=== PATIENT | male | born 1935 ===

== ENCOUNTER → 2020-03-22 13:53 | Outpatient (BNVA) | payer MEDICARE, SELFPAY | PROVIDERS: PCP Internal Medicine; Referring Provider Internal Medicine; Visit Provider Internal Medicine | DX: Z76.89 Persons encountering health services in other specified circumstances (principal) ==

== ENCOUNTER → 2020-04-26 13:17 | Outpatient (BNVA) | payer MEDICARE, SELFPAY | PROVIDERS: PCP Internal Medicine; Referring Provider Internal Medicine; Visit Provider Internal Medicine | DX: Z45.018 Encounter for adjustment and management of other part of cardiac pacemaker (principal); I49.5 Sick sinus syndrome | CPT/HCPCS: 93005; 99212 ==

== ENCOUNTER → 2020-06-01 12:50 | Outpatient (REF) | payer MEDICARE, SELFPAY ==
--- NOTE | 2020-06-01 13:01 | CA_ITS ---
Transthoracic Echocardiogram Patient (Last, First, Middle): Carlin Milton J Gender: Male Date of : 1935 Age: 85 Procedure Date: 06/01/2020 Procedure Type: Transthoracic Echocardiogram Location: OP Height: 177.8 cm Weight: 90.72 kg BSA: 2.09 m2 Heart Rate: bpm BP: 126 / 68 mmHg Subeditor: Referring MD: Dominick Guillaume MD Symptoms: Z95.0 - Presence of cardiac pacemaker Study Quality: Fair ECG Rhythm: Sinus with extra beats Conclusions: - The left ventricular systolic function is normal. The visually estimated ejection fraction is between 60-65%. - There is mild calcification of the aortic valve. - There is mild mitral annular calcification. - There is mild tricuspid valve regurgitation. - There is mild dilatation of the ascending aorta measuring 3.90 cm. Findings Left Ventricle Normal left ventricular cavity size. There is mildly increased left ventricular wall thickness. The left ventricular systolic function is normal. The visually estimated ejection fraction is between 60-65%. There is no evidence of regional wall motion abnormalities. E/E prime ratio is between 8 and 15 consistent with indeterminate filling pressures. Evidence suggests grade I (mild) diastolic dysfunction. Right Ventricle Normal right ventricular cavity size and systolic function. There is a pacemaker wire seen in the right ventricle. Atria The left atrium is normal in size. The right atrium is normal in size. Aortic Valve There is a normal trileaflet aortic valve. There is mild calcification of the aortic valve. There is no aortic valve stenosis. There is no aortic valve regurgitation. Mitral Valve There is mild mitral annular calcification. There is trace mitral valve regurgitation. There is no mitral valve stenosis. Pulmonic Valve The pulmonic valve was not well visualized. Tricuspid Valve Normal tricuspid valve structure. There is mild tricuspid valve regurgitation. The pulmonary artery systolic pressure is normal. Great Vessels There is mild dilatation of the ascending aorta measuring 3.90 cm. Venous The inferior vena cava is normal in size and collapses greater than 50% with inspiration. Pericardium/Pleural There is no evidence of pericardial effusion. Prior Study Comparison No prior study available for comparison. Measurements 2D Linear Measurements IVSd: 1.28 0.6-0.9/0.6-1.0 cm LVIDd: 3.69 3.9-5.3/4.2-5.9 cm LVIDd Index: 1.77 2.4-3.2/2.2-3.1 cm/m2 LVIDs: 2.42 2.0-3.6 cm LVPWd: 1.26 0.7-1.1 cm Ao Root: 4.00 2.1-3.5 cm LA Diam: 3.40 2.7-3.8/3.0-4.0 cm LAIDs Index: 1.63 1.5-2.3 cm/m2 LV Mass: 199.22 67-162/88-224 g LV Mass Index: 95.32 43-95/49-115 g/m2 LVOT Diam: 2.30 3.0+(-)1.3 cm 2D Systolic Function EF 4C: 62.50 >55% EF 2C: 60.90 >55% EF BiP: 64.80 >55% Mitral Valve MV Pk E: 0.87 MV PK A: 1.53 MV Decel Time: 194.00 E/A: 0.60 E'Lateral: 6.67 E'Medial: 7.74 E/E' Med: 11.30 E/E' Lat: 13.10 PHT: 57.00 MVA PHT: 3.86 Decel [place]: 4.51 Aortic Valve AoV Pk Sadiq: 1.70 AoV Mn Sadiq: 1.18 AoV VTI: 0.36 AoV Pk Grad: 12.00 Aov Mn Grad: 6.00 JEANETTE Cont.VTI: 3.26 LVOT LVOT Pk Sadiq: 1.22 LVOT Mn Sadiq: 0.87 LVOT VTI: 0.28 LVOT Pk Grad: 6.00 LVOT Mn Grad: 3.00 LVOT Diam: 2.30 LVOT Area: 4.15 Diastolic Function MV Pk E: 0.87 MV Pk A: 1.53 E/A: 0.60 E'Medial: 7.74 E/E' Med: 11.30 E' Laterial: 6.67 E/E' Lat: 13.10 Tricuspid Valve TR Pk Sadiq: 2.51 TR Pk Grad: 25.00 RA Press: 3.00 RVSP: 28.00 Great Vessels Aorta Ao Root-2D: 4.00 2.0-3.7 cm Ao Asc: 3.90 2.1-3.4 cm Pulmonary Valve PV Pk Sadiq: 1.14 Peak PV Grad: 5.00 Updated in Other Vendor System with Status of Final Dominick Guillaume MD electronically signed on 06/01/2020 4:09:33 PM with status of Final
== END ==
LOC: HO.CARD 12:50
PROVIDERS: PCP Hospitalist; Visit Provider Internal Medicine
DX: Z95.0 Presence of cardiac pacemaker (principal)
CPT/HCPCS: 93306

== ENCOUNTER → 2021-04-14 13:18 | Outpatient (BNVA) | payer MEDICARE, SELFPAY | PROVIDERS: PCP Internal Medicine; Visit Provider Internal Medicine | DX: Z45.018 Encounter for adjustment and management of other part of cardiac pacemaker (principal); I49.5 Sick sinus syndrome; E78.5 Hyperlipidemia, unspecified | CPT/HCPCS: 93005; 99212 ==

== ENCOUNTER 2022-12-22 09:47 | Outpatient (REF) | payer MEDICARE, SELFPAY ==
[2022-12-22 10:03] LABS: MANUAL DIFF FLAG NO
[2022-12-22 10:28] LABS: Basophils Absolute Auto 0.1 X10*3/uL (0.0-0.2); Eosinophils Absolute Auto 0.2 X10*3/uL (0.0-0.4); Eosinophils Percent Auto 2.1 % (0-4); Hematocrit 44.5 % (42.0-52.0); Hemoglobin 14.6 g/dl (14.0-18.0); Imm Gran Abs Auto 0.02 X10*3/uL (0.00-0.03); Imm Gran Pct Auto 0.3 % (0.0-0.4); Lymphocytes Absolute Auto 2.5 X10*3/uL (1.2-4.9); Lymphocytes Percent Auto 34.8 % (20-40); Mean Corpuscular HGB Conc 32.8 g/dl (31.0-36.0); Mean Corpuscular Hemoglobin 31.1 pg (27.0-33.0); Mean Corpuscular Volume 94.9 fL (80.0-98.0); Mean Platelet Volume 11.2 fL (9.4-12.4); Monocytes Absolute Auto 0.7 X10*3/uL (0.1-1.2); Monocytes Percent Auto 9.5 % (2-11); Neutrophils Absolute Auto 3.7 x10*3/uL (2.0-8.3); Neutrophils Percent Auto 52.3 % (45-73); Platelet Count 169 X10*3/uL (160-400); Red Blood Count 4.69 X10*6/uL (4.60-5.80); Red Cell Distribution Width 13.9 % (11.0-16.0); White Blood Count 7.1 X10*3/uL (4.8-10.8)
[2022-12-22 11:06] LABS: Alanine Aminotransferase 20 U/L (0-40); Albumin Level 3.9 g/dL (3.5-5.0); Alkaline Phosphatase 96 U/L (39-117); Anion Gap 12 (12-20); Aspartate Amino Transferase 23 U/L (5-37); Bilirubin Total 0.6 mg/dL (0.0-1.0); Blood Urea Nitrogen 20 mg/dL (9-16); Calcium 9.7 mg/dL (8.4-10.2); Carbon Dioxide 24 mmol/L (22-29); Chloride 110 mmol/L (96-108); Cholesterol 221 mg/dL; Estimated Glomerular Filt Rate 43; Glucose Fasting 99 mg/dL (60-99); HDL Cholesterol 35 mg/dL; LDL Cholesterol Calculated 164 mg/dl; Potassium 4.4 mmol/L (3.3-5.1); Sodium 142 mmol/L (135-145); Total Protein 7.9 g/dL (6.5-8.0); Triglycerides 112 mg/dL
[2022-12-22 11:26] LABS: Prostate Specific Antigen 1.09 ng/mL (<0.05-4.0)
== END 2022-12-22 09:48 | disposition home or self-care (01) ==
LOC: HO.LAB 09:47
PROVIDERS: PCP Internal Medicine; Visit Provider Internal Medicine
DX: Z00.00 Encounter for general adult medical examination without abnormal findings (principal); R82.90 Unspecified abnormal findings in urine; Z12.5 Encounter for screening for malignant neoplasm of prostate
CPT/HCPCS: 36415; 80053; 80061; 84153; 85025; 87086

== ENCOUNTER 2023-01-01 12:59 | Outpatient (REF) | payer MEDICARE, SELFPAY ==
[2023-01-01 13:11] LABS: Appearance Urine Clear; Color Urine Yellow; Glucose Urine UA Negative (Negative); Leukocyte Esterase Urine Negative (Negative); Nitrite Urine Negative (Negative); Specific Gravity - Urine 1.015 (1.005-1.025); Urine Blood Negative (Negative); Urine Ketones Negative (Negative); Urine Protein Negative (Neg-Trace)
[2023-01-01 13:16] LABS: Bacteria Urine None Seen (None Seen); Hyaline Casts Urine 0-2 /LPF (0-2); RBC Urine 0-2 /HPF (0-2); Squamous Epithelial Cell Urine 0-2 /HPF (0-2); WBC Urine 0-5 /HPF (0-5)
== END 2023-01-01 13:00 | disposition home or self-care (01) ==
LOC: HO.LNP 12:59
PROVIDERS: Visit Provider Internal Medicine
DX: Z00.00 Encounter for general adult medical examination without abnormal findings (principal)
CPT/HCPCS: 81001

== ENCOUNTER 2023-08-24 12:06 | Outpatient (REF) | payer MEDICARE, SELFPAY ==
--- NOTE | ~2023-08-24 | XR_ITS ---
EXAMINATION: XR FOOT, LEFT CLINICAL INFORMATION: Pain without trauma. COMPARISON: None available. TECHNIQUE: AP, lateral, and oblique views of the left foot. FINDINGS: Bony alignment and mineralization are normal. No fracture, dislocation or left ankle joint effusion is seen. Boehler's angle is normal. There is a small plantar calcaneal spur. A small os trigonum and an os naviculare (accessory ossification centers) are noted. There is degenerative change of the dorsal midfoot. There is no focal soft tissue swelling, gas or foreign body. XR/XR foot LT min 3V IMPRESSION: 1. No fracture, dislocation or left ankle joint effusion is seen. 2. There is a small plantar calcaneal spur.
== END 2023-08-24 12:07 | disposition home or self-care (01) ==
LOC: HO.LAB 12:06
PROVIDERS: Absent Provider Internal Medicine; PCP Internal Medicine; Visit Provider Internal Medicine
DX: M79.672 Pain in left foot (principal)
CPT/HCPCS: 73630

== ENCOUNTER 2023-09-01 11:08 | Outpatient (REF) | payer MEDICARE, SELFPAY ==
--- NOTE | ~2023-09-01 | XR_ITS ---
EXAMINATION: XR KNEE, LEFT CLINICAL INFORMATION: Arthritis of left knee COMPARISON: None available. TECHNIQUE: Two views of the left knee. FINDINGS: Trace joint effusion. Tiny calcific density overlies the posterior aspect of the superior patellar tendon insertion on the lateral view with small anterior spur. Mild narrowing of the medial and lateral compartments with tiny marginal osteophytes. The bones are diffusely demineralized. Scattered soft tissue calcifications are likely vascular XR/XR knee LT 2V IMPRESSION: Mild degenerative changes as detailed above.
== END 2023-09-01 11:09 | disposition home or self-care (01) ==
LOC: HO.HMGCX 11:08
PROVIDERS: PCP Internal Medicine; Visit Provider Internal Medicine
DX: M17.12 Unilateral primary osteoarthritis, left knee (principal)
CPT/HCPCS: 73560

== ENCOUNTER 2023-12-31 10:54 | Outpatient (REF) | payer MEDICARE, SELFPAY ==
[2023-12-31 10:57] LABS: MANUAL DIFF FLAG NO
[2023-12-31 11:07] LABS: Basophils Absolute Auto 0.1 X10*3/uL (0.0-0.2); Basophils Percent Auto 1.3 % (0-2); Eosinophils Absolute Auto 0.1 X10*3/uL (0.0-0.4); Eosinophils Percent Auto 1.8 % (0-4); Hematocrit 42.6 % (42.0-52.0); Hemoglobin 14.1 g/dl (14.0-18.0); Imm Gran Abs Auto 0.02 X10*3/uL (0.00-0.03); Imm Gran Pct Auto 0.3 % (0.0-0.4); Lymphocytes Absolute Auto 2.5 X10*3/uL (1.2-4.9); Mean Corpuscular HGB Conc 33.1 g/dl (31.0-36.0); Mean Corpuscular Hemoglobin 32.1 pg (27.0-33.0); Mean Platelet Volume 11.2 fL (9.4-12.4); Monocytes Absolute Auto 0.6 X10*3/uL (0.1-1.2); Monocytes Percent Auto 8.2 % (2-11); Neutrophils Absolute Auto 3.8 x10*3/uL (2.0-8.3); Neutrophils Percent Auto 53.4 % (45-73); Platelet Count 199 X10*3/uL (160-400); Red Blood Count 4.39 X10*6/uL (4.60-5.80); Red Cell Distribution Width 14.2 % (11.0-16.0); White Blood Count 7.1 X10*3/uL (4.8-10.8)
[2023-12-31 11:28] LABS: Appearance Urine Clear; Color Urine Yellow; Glucose Urine UA Negative (Negative); Leukocyte Esterase Urine Negative (Negative); Nitrite Urine Negative (Negative); Urine Blood Negative (Negative); Urine Ketones Negative (Negative); Urine Protein Negative (Neg-Trace)
[2023-12-31 11:29] LABS: Alanine Aminotransferase 20 U/L (0-40); Albumin Level 3.9 g/dL (3.5-5.0); Alkaline Phosphatase 93 U/L (39-117); Anion Gap 13 (12-20); Aspartate Amino Transferase 24 U/L (5-37); Bilirubin Total 0.6 mg/dL (0.0-1.0); Blood Urea Nitrogen 18 mg/dL (9-16); Calcium 9.4 mg/dL (8.4-10.2); Carbon Dioxide 24 mmol/L (22-29); Chloride 109 mmol/L (96-108); Cholesterol 218 mg/dL (<200); Estimated Glomerular Filt Rate 43; Glucose Fasting 129 mg/dL (60-99); HDL Cholesterol 39 mg/dL (>40); LDL Cholesterol Calculated 157 mg/dL (<100); Potassium 3.9 mmol/L (3.3-5.1); Sodium 142 mmol/L (135-145); Total Protein 7.7 g/dL (6.5-8.0); Triglycerides 112 mg/dL (<150)
[2023-12-31 11:43] LABS: PSA,Total (Free>4and<10) 0.88 ng/mL (0.00-4.00)
[2023-12-31 11:50] LABS: Bacteria Urine None Seen (None Seen); Hyaline Casts Urine 0-2 /LPF (0-2); RBC Urine 0-2 /HPF (0-2); Squamous Epithelial Cell Urine 0-2 /HPF (0-2); WBC Urine 0-5 /HPF (0-5)
== END 2023-12-31 10:55 | disposition home or self-care (01) ==
LOC: HO.LNP 10:54
PROVIDERS: Visit Provider Internal Medicine
DX: Z00.00 Encounter for general adult medical examination without abnormal findings (principal); Z12.5 Encounter for screening for malignant neoplasm of prostate
CPT/HCPCS: 80053; 80061; 81001; 84153; 85025

== ENCOUNTER 2024-02-07 13:17 | Outpatient (REF) | payer MEDICARE, SELFPAY ==
[2024-02-07 13:21] LABS: MANUAL DIFF FLAG NO
[2024-02-07 13:39] LABS: Basophils Absolute Auto 0.1 X10*3/uL (0.0-0.2); Basophils Percent Auto 1.3 % (0-2); Eosinophils Absolute Auto 0.1 X10*3/uL (0.0-0.4); Eosinophils Percent Auto 1.8 % (0-4); Hematocrit 34.6 % (42.0-52.0); Hemoglobin 10.9 g/dl (14.0-18.0); Imm Gran Abs Auto 0.04 X10*3/uL (0.00-0.03); Imm Gran Pct Auto 0.5 % (0.0-0.4); Lymphocytes Absolute Auto 1.5 X10*3/uL (1.2-4.9); Lymphocytes Percent Auto 18.1 % (20-40); Mean Corpuscular HGB Conc 31.5 g/dl (31.0-36.0); Mean Corpuscular Hemoglobin 31.2 pg (27.0-33.0); Mean Corpuscular Volume 99.1 fL (80.0-98.0); Mean Platelet Volume 11.1 fL (9.4-12.4); Monocytes Absolute Auto 0.7 X10*3/uL (0.1-1.2); Monocytes Percent Auto 8.9 % (2-11); Neutrophils Absolute Auto 5.6 x10*3/uL (2.0-8.3); Neutrophils Percent Auto 69.4 % (45-73); Platelet Count 313 X10*3/uL (160-400); Red Blood Count 3.49 X10*6/uL (4.60-5.80); Red Cell Distribution Width 13.7 % (11.0-16.0)
[2024-02-07 14:07] LABS: Alanine Aminotransferase 59 U/L (0-40); Albumin Level 3.7 g/dL (3.5-5.0); Alkaline Phosphatase 93 U/L (39-117); Anion Gap 14 (12-20); Aspartate Amino Transferase 41 U/L (5-37); Bilirubin Total 0.3 mg/dL (0.0-1.0); Blood Urea Nitrogen 30 mg/dL (9-16); Calcium 9.3 mg/dL (8.4-10.2); Carbon Dioxide 20 mmol/L (22-29); Chloride 111 mmol/L (96-108); Estimated Glomerular Filt Rate 29; Glucose Fasting 102 mg/dL (60-99); Magnesium 2.4 mg/dL (1.6-2.6); Potassium 4.7 mmol/L (3.3-5.1); Sodium 140 mmol/L (135-145); Total Protein 8.1 g/dL (6.5-8.0)
== END 2024-02-07 13:18 | disposition home or self-care (01) ==
LOC: HO.LNP 13:17
PROVIDERS: Visit Provider Internal Medicine
DX: I26.92 Saddle embolus of pulmonary artery without acute cor pulmonale (principal)
CPT/HCPCS: 80053; 83735; 84100; 85025

== ENCOUNTER 2024-02-28 19:54 | Emergency (ER) | payer OTHER, MEDICARE, SELFPAY ==
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
[2024-02-28 20:03] VITALS: BP 149/81; PULSE 93; RESP 18; TEMP 36.1; O2SAT 97; BMI 28.0
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
[2024-02-28 22:14] VITALS: BP 136/84; PULSE 89; RESP 18; TEMP 36.1; O2SAT 97
== END 2024-02-28 22:15 | disposition home or self-care (01) ==
PROVIDERS: Emergency Provider Internal Medicine; PCP Internal Medicine
DX: S09.90XA Unspecified injury of head, initial encounter (principal); V43.52XA Car driver injured in collision with other type car in traffic accident, initial encounter; Y93.89 Activity, other specified; Y92.488 Other paved roadways as the place of occurrence of the external cause; Y99.8 Other external cause status; Z79.899 Other long term (current) drug therapy; Z79.01 Long term (current) use of anticoagulants
CPT/HCPCS: 70450; 99284

== ENCOUNTER 2024-04-04 11:28 | Outpatient (REF) | payer OTHER, MEDICARE, SELFPAY ==
[2024-04-04 12:05] LABS: MANUAL DIFF FLAG NO
[2024-04-04 12:38] LABS: Basophils Absolute Auto 0.1 X10*3/uL (0.0-0.2); Basophils Percent Auto 0.9 % (0-2); Eosinophils Absolute Auto 0.2 X10*3/uL (0.0-0.4); Eosinophils Percent Auto 2.5 % (0-4); Hematocrit 35.3 % (42.0-52.0); Hemoglobin 11.6 g/dl (14.0-18.0); Imm Gran Abs Auto 0.02 X10*3/uL (0.00-0.03); Imm Gran Pct Auto 0.3 % (0.0-0.4); Lymphocytes Absolute Auto 2.1 X10*3/uL (1.2-4.9); Lymphocytes Percent Auto 32.2 % (20-40); Mean Corpuscular HGB Conc 32.9 g/dl (31.0-36.0); Mean Corpuscular Hemoglobin 31.3 pg (27.0-33.0); Mean Corpuscular Volume 95.1 fL (80.0-98.0); Mean Platelet Volume 10.6 fL (9.4-12.4); Monocytes Absolute Auto 0.6 X10*3/uL (0.1-1.2); Neutrophils Absolute Auto 3.5 x10*3/uL (2.0-8.3); Neutrophils Percent Auto 54.1 % (45-73); Platelet Count 218 X10*3/uL (160-400); Red Blood Count 3.71 X10*6/uL (4.60-5.80); White Blood Count 6.4 X10*3/uL (4.8-10.8)
[2024-04-04 12:41] LABS: Appearance Urine Clear; Color Urine Yellow; Glucose Urine UA Negative (Negative); Leukocyte Esterase Urine Negative (Negative); Nitrite Urine Negative (Negative); PH 6.5 (5.0-9.0); Specific Gravity - Urine <= 1.005 (1.005-1.025); Urine Blood Negative (Negative); Urine Ketones Negative (Negative); Urine Protein Negative (Neg-Trace)
[2024-04-04 13:28] LABS: Parathyroid Hormone Intact 105.7 pg/mL (8.7-77.1)
[2024-04-04 13:38] LABS: Creatinine Urine 24.34 mg/dL; Microalbum/Creatinine Ratio Ur 73.9 ug/mg cr (<30); Total Protein Urine Random < 7 mg/dL (<12)
[2024-04-04 13:40] LABS: Anion Gap 10 (12-20); Blood Urea Nitrogen 18 mg/dL (9-16); Calcium 9.3 mg/dL (8.4-10.2); Carbon Dioxide 23 mmol/L (22-29); Chloride 111 mmol/L (96-108); Estimated Glomerular Filt Rate 40; Glucose Random 108 mg/dL (60-115); Magnesium 2.5 mg/dL (1.6-2.6); Phosphorus 2.5 mg/dL (2.7-4.5); Potassium 3.8 mmol/L (3.3-5.1); Sodium 140 mmol/L (135-145)
[2024-04-04 13:45] LABS: Vitamin D 25-OH Total 49.7 ng/mL (>30)
[2024-04-11 08:07] LABS: Cystatin C 2.19 (H); eGFR (Cystatin C) 25 (L)
== END 2024-04-04 11:29 | disposition home or self-care (01) ==
LOC: HO.LAB 11:28
PROVIDERS: PCP Internal Medicine; Visit Provider Internal Medicine
DX: N17.8 Other acute kidney failure (principal); N18.32 Chronic kidney disease, stage 3b
CPT/HCPCS: 36415; 80048; 81003; 82043; 82306; 82570; 82610; 83735; 83970; 84100; 84156; 85025

== ENCOUNTER 2024-06-24 10:11 | Outpatient (REF) | payer MEDICARE, SELFPAY ==
[2024-06-24 10:30] LABS: MANUAL DIFF FLAG NO
[2024-06-24 11:24] LABS: Basophils Absolute Auto 0.1 X10*3/uL (0.0-0.2); Eosinophils Absolute Auto 0.1 X10*3/uL (0.0-0.4); Hematocrit 37.5 % (42.0-52.0); Hemoglobin 12.5 g/dl (14.0-18.0); Imm Gran Abs Auto 0.01 X10*3/uL (0.00-0.03); Imm Gran Pct Auto 0.2 % (0.0-0.4); Lymphocytes Absolute Auto 1.8 X10*3/uL (1.2-4.9); Lymphocytes Percent Auto 30.7 % (20-40); Mean Corpuscular HGB Conc 33.3 g/dl (31.0-36.0); Mean Corpuscular Hemoglobin 31.8 pg (27.0-33.0); Mean Corpuscular Volume 95.4 fL (80.0-98.0); Mean Platelet Volume 10.9 fL (9.4-12.4); Monocytes Absolute Auto 0.5 X10*3/uL (0.1-1.2); Monocytes Percent Auto 7.8 % (2-11); Neutrophils Absolute Auto 3.4 x10*3/uL (2.0-8.3); Neutrophils Percent Auto 58.3 % (45-73); Platelet Count 206 X10*3/uL (160-400); Red Blood Count 3.93 X10*6/uL (4.60-5.80); Red Cell Distribution Width 13.7 % (11.0-16.0); White Blood Count 5.9 X10*3/uL (4.8-10.8)
--- OUTSIDE RECORDS SUMMARY | 2024-06-24 11:24 | XMS_ITS ---
Author Organization Silver Isaacs MD Address [address] [place] [phone] Care Team Providers Care Slip Cover Estimator Name Role Phone Silver Isaacs Primary Care Provider [phone] Allergies No Known Allergies REASON FOR VISIT check BP Medications Medication SIG (Take, Route, Frequency, Duration) Notes Start Date End Date Status Eliquis 2.5 MG 1 tablet Orally Twic e a day Active amLODIPine Besylate 5 MG 1 tablet Orally Once a day Active Tamsulosin HCl 0.4 MG 1 capsule Orally O nce a day for 30 days Not-Taking Acetaminophen 325 MG 3 tablet as needed Orally every 6 hrs Not-Taking Metoprolol Succinate ER 25 MG 0.5 tablet Orally twice a day Not-Taking Aspir-Low 81 MG 1 tablet Orally Once a day for 30 day(s) Active Vital Signs Blood pressure systolic 132 mm Hg 06/06/19 25 Blood pressure diastolic 64 mm Hg 025 Height 68 in 06/06/2024 Weight 200 lbs 06/06/2024 BMI 30.41 kg/m2 06/06/2024 Encounters Encounter Location Date Provider Diagnosis Silver Isaacs MD [address] [place] [phone] 06/06/2024 Silver Isaacs 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 I26.92 ; Essential hypertension I10 and Left foot drop M21.372 Assessments Encounter Date Diagnosis (ICD Code) Assessment Notes Treatment Notes Treatment Clinical Notes Section Notes 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 (ICD-10 - I26.92) had no cause of the pulmonary embolist so needs to be on eliquis indefinitely 06/06/2024 Essential hypertension (ICD-10 - I10) 06/06/2024 Left foot drop (ICD-10 - M21.372) pending diagnostic testing, Order faxed to [facility] Plan Of Treatment Treatment Notes Assessment Notes Acute saddle pulmonary embol ism without acute cor pulmonale had no cause of the pulmonary embolist s o needs to be on eliquis indefinitely Left foot drop pending diagnostic t esting, Order faxed to [facility] Pending Test Test Name Order Date CT lumbar spine wo con 06/06/2024 Complete Blood Count Auto Diff 5 Comprehensive [place]. Panel Fast 5 Next Appt Details Follow Up: 6 Weeks, Reason: Provider Name:Silvre hemphill, 07/11/2024 11:30:00 AM, [address] [place] [address], [address], [phone], Provider Name:Silver hemphill, 09/19/2024 01:30:00 PM, [address] [place] [address], [address], [phone], Provider Name:Silver leer, 12/30/2024 07:15:00 AM, [address] [place] [address], [place] [address], [place], [place], [phone], Provider Name:Silver leer, 01/06/2025 01:30:00 PM, [address] [place] [address], [place] [address], [place], [place], [phone], Progress Notes * Carlin MILTONDOB:1935 ( 89 yo M)Acc No.[id number]:06/06/2024 Progress Notes Patient:?Carlin MILTON Provider:?Silver Isaacs MD :1935???Age:89 Y???Sex:Male Ivan e:06/06/2024 Address: [address], [facility] Subjective: * Chief Complaints: * ???check BP * HPI: ???Symptom(s):?patient is a 89 yo male here for follow up bp , went up when he stopped both meds.when he stopped metoprolol the bp stayed the same. but when he stopped the amlodipine diastolic went up to 100 so went back on/ legs and feet feel numb and has a dropped foot on left. * ROS:?General/Constitutional:?Denies?Chills.?Denies?Fatigue.?Denies?Fever.?Denies?Headache.?ENT:?Patient denies?decreased sense of smell, any loss of taste, sore throat.?Denies?Sore throat.?Respiratory:?Denies?Cough.?Denies?Shortness of breath at rest.?Denies?Shortness of breath with exertion.?Cardiovascular:?Denies?Chest pain at rest.?Denies?Chest pain with exertion.?Denies?Dizziness.?Denies?Palpitations.?Denies?Shortness of breath.?Gastrointestinal:?Denies?Diarrhea.?Denies?Nausea.?Musculoskeletal:?Patient denies?muscle aches.?Peripheral Vascular:?Patient denies?red and blue toes.? * Medical History:? * Surgical History:? * Hospitalization/Major Diagno stic Procedure:? * Medications:?TakingamLODIPin e Besylate 5 MG Tablet 1 tablet Orally Once a day Aspir-Low 81 MG Tablet Delayed Release 1 tablet Orally Once a day Eliquis 2.5 MG Tablet 1 tablet Orally Twice a day Taking amLODIPine Besylate 5 MG Tablet 1 tablet Orally Once a day Taking Aspir-Low 81 MG Tablet Delayed Release 1 tablet Orally Once a day Taking Eliquis 2.5 MG Tablet 1 tablet Orally Twice a day Not-Taking/PRNMetoprolol Succinate ER 25 MG Tablet Extended Release 24 Hour 0.5 tablet Orally twice a day Acetaminophen 325 MG Tablet 3 tablet as needed Orally every 6 hrs Tamsulosin HCl 0.4 MG Capsule 1 capsule Orally Once a day Medication List reviewed and reconciled with the patientNot-Taking/PRN Metoprolol Succinate ER 25 MG Tablet Extended Release 24 Hour 0.5 tablet Orally twice a day Not-Taking/PRN Acetaminophen 325 MG Tablet 3 tablet as needed Orally every 6 hrs Not-Taking/PRN Tamsulosin HCl 0.4 MG Capsule 1 capsule Orally Once a day Medication List reviewed and reconciled with the patient * Allergies:?N.K.D.A.yes[Aller gies Verified] Objective: * Vitals:?Ht: 68, Wt: 200, BMI :30.41, BP:132/64, Wt-k.72. * Examination: ???General Examination: ?GENERAL APPEARANCE:?alert, well hydrated, in no distress.?HEAD:?normocephalic.?SKIN:?good turgor.?HEART:?no murmurs, rubs, gallops, regular rate and rhythm.?LUNGS:?no wheezes, rales, rhonchi, good air movement, clear to auscultation bilaterally.?MUSCULOSKELETAL:?has foot drop on the left and normal strength on the left weakness on the left.? 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 Plan: * Treatment: 2.?Left foot drop?Imaging: CT lumbar spine wo con Notes: pending diagnostic testing, Order faxed to [facility]?? * Procedure Codes:?G2211 Compl ex e/m visit add on * Follow Up:?6 Weeks * * Sign off status: Completed true * Provider:?Silver Isaacs MD Date:?0 06/06/2024 Generated for Barbara ryder/Cindy/eTransmitting on:?06/24/2024 11:24 AM EST History and Physical Notes * HPI (History of Present Illness) Category Sub-Category Detail Notes Category Not es Symptom(s) patient is a 89 yo male here for follow up bp , went up when he stopped both meds.when he stopped metoprolol the bp stayed the same. but when he stopped the amlodipine diastolic went up to 100 so went back on/ legs and feet feel numb and has a dropped foot on left Examination Category Sub-Category Detail Notes Category Not es General Examination GENERAL APPEARANCE: alert, w ell hydrated, in no distress HEAD: normocephalic HEART: no murmurs, rubs, ga llops, regular rate and rhythm LUNGS: no wheezes, rales, r honchi, good air movement, clear to auscultation bilaterally SKIN: good turgor MUSCULOSKELETAL: has foot drop on the left and normal strength on the left weakness on the left
--- OUTSIDE RECORDS SUMMARY | 2024-06-24 11:24 | XMS_ITS ---
Author Organization Silver Isaacs MD Address [address] [place] [phone] Care Team Providers Care Tank House Operator Name Role Phone Silver Isaacs Primary Care Provider REASON FOR VISIT F/U AFTER MRI Encounters Encounter Location Date Provider Diagnosis Silver Isaacs MD [address] [place] [address] [address] [place] [phone] 05/30/2024 Silver Isaacs Plan Of Treatment Next Appt Details Provider Name:Silver hemphill, 07/11/2024 11:30:00 AM, [address] [place] [address], [address] [facility], [place], [place], [phone], Provider Name:Silver hemphill, 09/19/2024 01:30:00 PM, [address] [place] [address], [address], [phone], Provider Name:Silver hemphill, 12/30/2024 07:15:00 AM, [address] [place] [address], [address], [phone], Provider Name:Silver leer, 01/06/2025 01:30:00 PM, [address] [place] [address], [address], [phone], Progress Notes * Carlin MILTONDOB:1935 ( 89 yo M)Acc No.[id number]:05/30/2024 Progress Notes Patient:?Carlin MILTON Provider:?Silver Isaacs MD :1935???Age:89 Y???Sex:Male Ivan e:05/30/2024 Address:[address] [facility] Subjective: * Chief Complaints: * ???1. F/U AFTER MRI. * Medical History:? Objective: * Vitals:? Assessment: Plan: * Treatment: * * The named appointment provid er may or may not be the originator of this progress note, and it is not deemed complete until electronically signed by the appointment provider. Sign off status: Pending * Provider:?Silver Isaacs MD Date:?0 05/30/2024 Generated for Barbara ryder/Cindy/Steveitting on:?06/24/2024 11:24 AM EST
--- OUTSIDE RECORDS SUMMARY | 2024-06-24 11:24 | XMS_ITS ---
Author Organization Silver Isaacs MD Address [address] [place] [phone] Care Team Providers Care Victorian Literature Professor Name Role Phone Silver Isaacs Primary Care Provider REASON FOR VISIT CBC Comp meta panel Encounters Encounter Location Date Provider Diagnosis Silver Isaacs MD [address] [place] [address] [place] [phone] 06/19/2024 Silver Isaacs Essential hypertension I10 and 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 I26.92 Assessments Encounter Date Diagnosis (ICD Code) Assessment Notes Treatment Notes Treatment Clinical Notes Section Notes 06/19/2024 Essential hypertension (ICD-10 - I10) 06/19/2024 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 (ICD-10 - I26.92) Plan Of Treatment Pending Test Test Name Order Date Complete Blood Count Auto Diff 5 Comprehensive Malin. Panel Fast 5 Next Appt Details Provider Name:Silver hemphill, 07/11/2024 11:30:00 AM, [address] [place] [address], [address], [phone], Provider Name:Silver hemphill, 09/19/2024 01:30:00 PM, [address] [place] [address], [address], [phone], Provider Name:Silver hemphill, 12/30/2024 07:15:00 AM, [address] [place] [address], [phone], Provider Name:Silver hemphill, 01/06/2025 01:30:00 PM, [address], [address], [place], [phone], Progress Notes * Carlin MILTONDOB:1935 ( 89 yo M)Acc No.[id number]:06/19/2024 Progress Note Patient:Carlin GAMBINO Provider:?Silver Isaacs MD :1935???Age:89 Y???Sex:Male Ivan e:06/19/2024 Address:[address] [place] [address] Alexis bibiana, [id number] Subjective: * Chief Complaints: * ???1. CBC Comp meta panel. * Medical History:? Objective: * Vitals:? Assessment: * Assessment: 1.?Essential hypertension - I10 (Primary)???2.?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 - I26.92??? Plan: * Treatment: * * The named appointment provid er may or may not be the originator of this progress note, and it is not deemed complete until electronically signed by the appointment provider. Sign off status: Pending * Provider:?Silver Isaacs MD Date:?0 06/19/2024 Generated for Barbara ryder/Cindy/Cristinasmitting on:?06/24/2024 11:24 AM EST
--- OUTSIDE RECORDS SUMMARY | 2024-06-24 11:24 | XMS_ITS | Encounter Summary ---
Author Organization [facility] Address [address] [phone] Phone Care Team Providers Care Clinic Lead Name Role Phone Silver Isaacs MD Primary Care Provider Encounter Details Date Type Department Care Team (Late st Contact Info) Description 06/03/2024 Orders Only [facility] [address] [place] [phone] Alex Nguyen MD [address] [phone] Other acute kidney failure (HCC); Stage 3b chronic kidney disease (HCC) Social History Tobacco Use Types Packs/Day Years Used Date Smoking Tobacco: Never Assessed Sex and Gender Information Value Date Recorded Sex Assigned at Not on file Legal Sex Male 5:02 PM EDT Gender Identity Not on file Sexual Orientation Not on file documented as of this encounter Plan of Treatment Not on file documented as of this encounter Visit Diagnoses Diagnosis Other acute kidney failure (HCC) Stage 3b chronic kidney disease (HCC) documented in this encounter Care Teams Clinic Lead Relationship Specialty Start Date End Date Silver Isaacs MD [address] [place] [address] DRIVE [address] [place] PCP - General Internal Medicine 04/03/24 documented as of this encounter
--- OUTSIDE RECORDS SUMMARY | 2024-06-24 11:24 | XMS_ITS | Patient Health Record ---
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 unprovoked so will need to stay on the eliquis permanentoy 08/31/2023 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 - M17.12) ORDER GIVEN TO PATIENT FOR XRAY, pending diagnostic testing 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 will stop the amlodipine 02/07/2024 Acute renal failure, unspecified acute renal failure type (ICD-10 - N17.9) 01/01/2024 Arthralgia of right temporomandibular joint (ICD-10 - M26.621) will send to dr george 01/01/2024 Colon cancer screening (ICD-10 - Z12.11) guaiac negative 01/01/2024 Depression screening (ICD-10 - Z13.31) negative screen 03/07/2024 Other 03/07/2024 Other Plan Of Treatment Pending Test Test Name Order Date MRI LUMBAR SPINE NO CONTRAST 04/24/2024 US ABD AORTA 01/01/2024 US LEG LT VENOUS DOPPLER 01/01/2024 CT lumbar spine wo con 06/06/2024 Complete Blood Count Auto Diff 5 Comprehensive [place]. Panel Fast 5 Next Appt Details Provider Name:Silver hemphill, 07/11/2024 11:30:00 AM, [address] [place] [address], [address], [phone], Provider Name:Silver hemphill, 09/19/2024 01:30:00 PM, [address] [place] [address], [address], [phone], Provider Name:Silver hemphill, 12/30/2024 07:15:00 AM, [address] [place] [address], [address], [phone], Provider Name:Silver hemphill, 01/06/2025 01:30:00 PM, [address] [place] [address], [address], [phone], Insurance Providers Payer Name Payer Address Payer Phone Subscriber Number Group Number Insured Name Patient Relationship to Insured Coverage Start Date Coverage End Date [employer]AN [address] [place] [phone] [id number] Carlin Milton Self - patient is the insured
--- OUTSIDE RECORDS SUMMARY | 2024-06-24 11:24 | XMS_ITS | Clinical Summary ---
Author Organization [facility] Address [address] [phone] Phone Care Team Providers Care Geothermal Plant Manager Name Role Phone Silver Isaacs MD Primary Care Provider [phone] Allergies No known active allergies Medications apixaban (Eliquis) 2.5 MG tablet Take 2.5 mg by mouth 11/10/2023 Active amLODIPine (NORVASC) 5 MG tablet Take 5 mg by mouth 1 (one) time each day 01/29/2024 Active metoprolol tartrate 25 MG tablet TAKE 1/2 (HALF) TABLET BY MOUTH TWO TIMES A DAY 01/29/2024 Active Active Problems No known active problems Encounters Date Type Department Care Team Description 06/03/2024 Orders Only [facility] [address] [place] [phone] Alex Nguyen MD Other acute kidney failure (HCC); Stage 3b chronic kidney disease (HCC) 04/03/2024 2:30 PM EST Office Visit [facility] [address] [place] [phone] Alex Nguyen MD Other acute kidney failure (HCC) (Primary Dx); Stage 3b chronic kidney disease (HCC) from Last 3 Months Social History Tobacco Use Types Packs/Day Years Used Date Smoking Tobacco: Never Assessed Sex and Gender Information Value Date Recorded Sex Assigned at Not on file Legal Sex Male 5:02 PM EDT Gender Identity Not on file Sexual Orientation Not on file Last Filed Vital Signs Vital Sign Reading Time Taken Comments Blood Pressure 120/80 04/03/2024 2:19 PM EST Pulse 88 04/03/2024 2:19 PM EST Temperature - - Respiratory Rate - - Oxygen Saturation 98% 04/03/2024 2:19 PM EST Inhaled Oxygen Concentration - - Weight 92.8 kg (204 lb 9.6 oz) 04/03/2024 2:19 P M EST Height - - Body Mass Index - - Plan of Treatment Health Maintenance Due Date Last Done Comments Pneumococcal Vaccine: 65+ Ye ars (1 of 2 - PCV) 01/21/1941 Influenza Vaccine (#1) 2024 Hepatitis B Vaccine Aged Out No longe r eligible based on patient's age to complete this topic Insurance [facility] Care Teams Geothermal Plant Manager Relationship Specialty Start Date End Date Silver Isaacs MD [address] [place], [place] PCP - General Internal Medicine 04/03/24
[2024-06-24 12:47] LABS: Alanine Aminotransferase 15 U/L (0-40); Albumin Level 3.9 g/dL (3.5-5.0); Alkaline Phosphatase 101 U/L (39-117); Anion Gap 11 (12-20); Aspartate Amino Transferase 26 U/L (5-37); Bilirubin Total 0.4 mg/dL (0.0-1.0); Blood Urea Nitrogen 23 mg/dL (9-16); Calcium 9.1 mg/dL (8.4-10.2); Carbon Dioxide 24 mmol/L (22-29); Chloride 112 mmol/L (96-108); Estimated Glomerular Filt Rate 37; Glucose Fasting 127 mg/dL (60-99); Potassium 3.8 mmol/L (3.3-5.1); Sodium 143 mmol/L (135-145); Total Protein 7.9 g/dL (6.5-8.0)
== END 2024-06-24 10:12 | disposition home or self-care (01) ==
LOC: HO.LAB 10:11
PROVIDERS: PCP Internal Medicine; Visit Provider Internal Medicine
DX: I26.92 Saddle embolus of pulmonary artery without acute cor pulmonale (principal)
CPT/HCPCS: 36415; 80053; 85025

== ENCOUNTER 2024-12-30 12:01 | Outpatient (REF) | payer MEDICARE, SELFPAY ==
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
--- OUTSIDE RECORDS SUMMARY | 2024-12-30 03:15 | XMS_ITS ---
Author Organization Silver Isaacs MD Address [address] [place] [phone] Care Team Providers Care Mill Set Up Name Role Phone Silver Isaacs Primary Care Provider REASON FOR VISIT yearly fasting labs Encounters Encounter Location Date Provider Diagnosis Silver Isaacs MD [address] [place] [phone] 12/30/2024 Silver Isaacs Blood tests for routine general physical examination Z00.00 and Essential hypertension I10 Assessments Encounter Date Diagnosis (ICD Code) Assessment Notes Treatment Notes Treatment Clinical Notes Section Notes 12/30/2024 Blood tests for routine general physical examination (ICD-10 - Z00.00) 12/30/2024 Essential hypertension (ICD-10 - I10) Plan Of Treatment Pending Test Test Name Order Date Complete Blood Count Auto Diff 5 Comprehensive [place]. Panel Fast 5 Lipid Panel 12/30/2024 PSA,Total (Free>4and<10) 12/30/2024 UA ClnCatch+Micro w/rflx Cult 12/30/2024 Next Appt Details Provider Name:Silver Lopez ier, 01/06/2025 01:30:00 PM, [address], [address], [place], [place], [phone], Progress Notes * SHANEL CarlinDOB:1935 ( 89 yo M)Acc No.[id number]:12/30/2024 Progress Note Patient: Carlin TORREZ Provider: Leigh Ann Isaacs MD :1935 A ge:89 Y S ex:Male Date:12/30/2024 Address: [phone] Subjective: * Chief Complaints: * 1 . Yearly fasting labs. * Medical History: Objective: * Vitals: Assessment: * Assessment: 1. B lood tests for routine general physical examination - Z00.00 (Primary) 2 .?Essential hypertension - I10 Plan: * Treatment: 2. E ssential hypertension L AB: Complete Blood Count Auto Diff L AB: Comprehensive [place]. Panel Fast L AB: Lipid Panel L AB: PSA,Total (Free>4and<10) L AB: UA ClnCatch+Micro w/rflx Cult * * The named appointment provid er may or may not be the originator of this progress note, and it is not deemed complete until electronically signed by the appointment provider. Sign off status: Pending * Provider: Leigh Ann Isaacs MD Date: 0 12/30/2024 Generated for Barbara ryder/Cindy/Steveitting on: 0 12/30/2024 01:26 PM EDT
[2024-12-30 12:21] LABS: MANUAL DIFF FLAG NO
--- OUTSIDE RECORDS SUMMARY | 2024-12-30 13:26 | XMS_ITS | Encounter Summary ---
Author Organization [facility] Address [address] [place] [phone] Phone Care Team Providers Care Behavior Specialist Name Role Phone Corey Sandoval MD Primary Care Provider + [phone] Reason for Referral * Outpatient Procedure - Closed Specialty Diagnoses / Procedures Referred By Contac t Referred To Contact Radiology Diagnoses History of pulmonary embolism Enlargement of abdominal aorta Procedures US Aorta Duplex Complete Silver Isaacs MD [address] [place] [address] Dr STEPHENS [address] [place] [address] Phone: tel: fax: Referral ID Status Reason Start Date Expiration Date Visits Re quested Visits Authorized [id number] Closed 01/01/2024 12/31/2024 1 1 * Outpatient Procedure - Closed Specialty Diagnoses / Procedures Referred By Contac t Referred To Contact Radiology Diagnoses History of DVT (deep vein thrombosis) History of pulmonary embolism Procedures US Lower Extremity Veins Duplex (Left) Silver Isaacs MD [address] [place] [address] Dr STEPHENS [address] [place] [address] Phone: tel: fax: Referral ID Status Reason Start Date Expiration Date Visits Re quested Visits Authorized [id number] Closed 01/01/2024 12/31/2024 1 1 Encounter Details Date Type Department Care Team (Late st Contact Info) Description 01/01/2024 Transcribe Orders Virtual Department [address] [place] [address] Silver Isaacs MD [address] [place] [address] [place] [address] History of DVT (deep vein thrombosis) (Primary Dx); History of pulmonary embolism; Enlargement of abdominal aorta Social History Tobacco Use Types Packs/Day Years Used Date Smoking Tobacco: Former Cigarettes Q uit: 1989 Smokeless Tobacco: Never Alcohol Use Standard Drinks/Week Comments No 0 (1 standard drink = 0.6 oz pur e alcohol) Education Answer Date Recorded Are you interested in more education? Not on hieu e 09/08/2022 Are you concerned about learning? Not on file 09/08/2022 No 09/08/2022 No 09/08/2022 Digital Access Answer Date Recorded No 10/09/2022 No 10/09/2022 Reliable internet access at home? Not on file 10/09/2022 Device with a working camera? Not on file Intimate Partner Violence Answer Date R ecorded Are you denied basic needs s uch as food, clothing, or medical care? No 10/22/2023 In the past 12 months have y ou been in a relationship with a person who hurts, threatens, or tries to control you? No 10/22/2023 Are you denied basic needs s uch as food, clothing, or medical care? No 10/22/2023 In the past 12 months have y ou been in a relationship with a person who hurts, threatens, or tries to control you? No 10/22/2023 Sex and Gender Information Value Date Recorded Sex Assigned at Male 04/02/2018 3:07 AM EST Legal Sex Male 10:14 PM EDT Gender Identity Male 04/02/2018 3:07 AM EST Sexual Orientation Straight 04/02/2018 3: 07 AM EST documented as of this encounter Plan of Treatment Not on file documented as of this encounter Results * US Lower Extremity Veins Duplex (Left) (01/15/2024 8:46 AM EDT) Anatomical Region Laterality Modality Hip Left, Thigh Left, Knee L eft, Leg Left, Ankle Left, Foot Left Ultrasound 01/15/2024 9:22 AM EDT Impressions 01/15/2024 12:08 PM EDT * No evidence of deep or superficial venous thrombosis in the visualized veins of the left lower extremity. ATTESTATION: I, Dr. Bola Payton as teaching physician, have reviewed the images for this case and if necessary edited the report originally created by Artemio Bruno. Narrative 01/15/2024 12:08 PM EDT US LOWER EXTREMITY VEINS DUPLEX (LEFT) Referring clinician's provided indication for this examination in [facility]: Outside Radiology Order; hx dvt TECHNIQUE: Lower extremity venous ultrasound with color and spectral Doppler. COMPARISON: US LOWER EXTREMITY VEINS DUPLEX COMPLETE (BILATERAL) 2023- FINDINGS: Exam Quality: Technically adequate exam demonstrates: Left lower extremity: Common femoral vein: Normal compressibility and flow characteristics. Femoral vein: Normal compressibility and flow characteristics. Proximal profunda femoral vein: Normal compressibility. Popliteal vein: Normal compressibility and flow characteristics. Posterior tibial veins: Normal compressibility. Proximal Peroneal veins: Normal compressibility. Great saphenous vein: Normal compressibility at the saphenofemoral junction. Fluid collection in the popliteal fossa on the left side measuring 4.4 x 0.8 x 2.7 cm, likely a Linton's cyst. Contralateral common femoral vein: Normal compressibility. Procedure Note Bola Payton MD - 01/15/2024 US LOWER EXTREMITY VEINS DUPLEX (LEFT) Referring clinician's provided indication for this examination in Epic:Outside Radiology Order; hx dvt TECHNIQUE: Lower extremity venous ultrasound with color and spectralDoppler. COMPARISON: US LOWER EXTREMITY VEINS DUPLEX COMPLETE (BILATERAL)2023- FINDINGS: Exam Quality: Technically adequate exam demonstrates: Left lower extremity: Common femoral vein: Normal compressibility and flow characteristics. Femoral vein: Normal compressibility and flow characteristics. Proximal profunda femoral vein: Normal compressibility. Popliteal vein: Normal compressibility and flow characteristics. Posterior tibial veins: Normal compressibility. Proximal Peroneal veins: Normal compressibility. Great saphenous vein: Normal compressibility at the saphenofemoraljunction. Fluid collection in the popliteal fossa on the left side measuring 4.4 x0.8 x 2.7 cm, likely a Linton's cyst. Contralateral common femoral vein: Normal compressibility. IMPRESSION: * No evidence of deep or superficial venous thrombosis in the visualizedveins of the left lower extremity. ATTESTATION: I, Dr. Bola Payton as teaching physician, have reviewedthe images for this case and if necessary edited the report originallycreated by Artemio Bruno. us Silver Isaacs MD CV US VASCULAR Final R esult * US Aorta Duplex Complete (01/15/2024 8:34 AM EDT) Anatomical Region Laterality Modality Aorta Ultrasound 01/15/2024 8:36 AM EDT Narrative 01/15/2024 12:08 PM EDT US AORTA DUPLEX COMPLETE Referring clinician's provided indication for this examination in Epic: Outside Radiology Order; hx pulmonary embolism TECHNIQUE: A duplex ultrasound evaluation of the abdominal aorta and iliac arteries as well as the inferior vena cava was performed using a combination of pina scale imaging, color duplex and spectral Doppler analysis. COMPARISON: CT CHEST PULMONARY ANGIOGRAM 07/10/2023 FINDINGS: Exam Quality: Technically adequate exam demonstrates: GENERAL: Abnormal color and spectral Doppler in the imaged aorta. Aorta: Proximal: Limited due to body habitus/bowel gas. Mid: Aneurysmal Distal: Aneurysmal IVC: Patent with normal spectral Doppler waveforms. Right Common Iliac Artery: Aneurysmal Left Common Iliac Artery: Aneurysmal Duplex: Proximal aorta: Peak systolic velocity (cm/s): 82.0 Mid aorta: Peak systolic velocity (cm/s): 133 Aorta Diameter Mid (cm): 7.4 8.5 Distal aorta: Peak systolic velocity (cm/s): 90.9 Aorta Diameter Distal (cm): 2.9 3.0 Iliac arteries: Right common Iliac artery: Peak systolic velocity (cm/s): 172 Diameter(cm): 2.1 1.9 Left common Iliac artery: Peak systolic velocity (cm/s): 109 Diameter (cm): 2.6 2.5 IMPRESSIONS: * Mid abdominal aortic aneurysm, measuring up to 8.5 cm with mural thrombus. * Aneurysmal dilatation of the bilateral common iliac arteries. Patient was instructed to hold at the exam site pending discussion with the ordering physician; however, the patient decided to leave for another appointment. Urgent findings and recommendation for vascular surgery consultation discussed with ordering physician Silver Isaacs at 9:14 AM who will communicate with the patient. A clinically significant result was initiated on 01/15/2024 9:15 AM, Message ID [id number]. ATTESTATION: I, Dr. Bola Payton as teaching physician, have reviewed the images for this case and if necessary edited the report originally created by Artemio Bruno. Procedure Note Bola Payton MD - 01/15/2024 US AORTA DUPLEX COMPLETE Referring clinician's provided indication for this examination in Epic:Outside Radiology Order; hx pulmonary embolism TECHNIQUE: A duplex ultrasound evaluation of the abdominal aorta and iliacarteries as well as the inferior vena cava was performed using acombination of pina scale imaging, color duplex and spectral Doppleranalysis. COMPARISON: CT CHEST PULMONARY ANGIOGRAM 07/10/2023 FINDINGS: Exam Quality: Technically adequate exam demonstrates: GENERAL: Abnormal color and spectral Doppler in the imaged aorta. Aorta: Proximal: Limited due to body habitus/bowel gas. Mid: Aneurysmal Distal: Aneurysmal IVC: Patent with normal spectral Doppler waveforms. Right Common Iliac Artery: Aneurysmal Left Common Iliac Artery: Aneurysmal Duplex: Proximal aorta: Peak systolic velocity (cm/s): 82.0 Mid aorta: Peak systolic velocity (cm/s): 133 Aorta Diameter Mid (cm): 7.4 8.5 Distal aorta: Peak systolic velocity (cm/s): 90.9 Aorta Diameter Distal (cm): 2.9 3.0 Iliac arteries: Right common Iliac artery: Peak systolic velocity (cm/s): 172 Diameter(cm): 2.1 1.9 Left common Iliac artery: Peak systolic velocity (cm/s): 109 Diameter (cm): 2.6 2.5 IMPRESSIONS: * Mid abdominal aortic aneurysm, measuring up to 8.5 cm with muralthrombus. * Aneurysmal dilatation of the bilateral common iliac arteries. Patient was instructed to hold at the exam site pending discussion withthe ordering physician; however, the patient decided to leave for anotherappointment. Urgent findings and recommendation for vascular surgery consultationdiscussed with ordering physician Silver Isaacs at 9:14 AM who willcommunicate with the patient. A clinically significant result was initiated on 01/15/2024 9:15 AM, MessageID [id number]. ATTESTATION: I, Dr. Bola Payton as teaching physician, have reviewedthe images for this case and if necessary edited the report originallycreated by Artemio Bruno. us Silver Isaacs MD IMG US ABDOMEN Final R esult documented in this encounter Visit Diagnoses Diagnosis History of DVT (deep vein thrombosis)- Primary History of pulmonary embolism Personal history of venous thrombosis and embolism Enlargement of abdominal aorta History of pulmonary embolism Personal history of venous thrombosis and embolism Enlargement of abdominal aorta History of DVT (deep vein thrombosis) History of pulmonary embolism Personal history of venous thrombosis and embolism documented in this encounter Care Teams Behavior Specialist Relationship Specialty Start Date End Date Corey Sandoval MD [address] [place] [phone] PCP - General Internal Medicine 06/08/20 documented as of this encounter Additional Source Comments The information contained in this document represents components of the legal health record. It is not the complete legal health record.[facility]
--- OUTSIDE RECORDS SUMMARY | 2024-12-30 13:27 | XMS_ITS | Clinical Summary ---
Author Organization [facility] Address [address] [address] Phone Care Team Providers Care Social Service Technician Name Role Phone Silver Isaacs MD Primary Care Provider Allergies No known active allergies Medications apixaban (Eliquis) 2.5 MG tablet Take 2.5 mg by mouth 11/10/2023 Active amLODIPine (NORVASC) 5 MG tablet Take 5 mg by mouth 1 (one) time each day 01/29/2024 Active metoprolol tartrate 25 MG tablet TAKE 1/2 (HALF) TABLET BY MOUTH TWO TIMES A DAY 01/29/2024 Active Active Problems No known active problems Social History Tobacco Use Types Packs/Day Years [...] Due Date Last Done Comments Pneumococcal Vaccine: 50+ Ye ars (1 of 2 - PCV) [birth year]21/1954 Influenza Vaccine (#1) 2025 Hepatitis B Vaccine Aged Out No longe r eligible based on patient's age to complete this topic Insurance [facility] Care Teams Social Service Technician Relationship Specialty Start Date End Date Silver Isaacs MD [address] [place] [address] [address] [place], [place] PCP - General Internal Medicine 04/03/24
--- OUTSIDE RECORDS SUMMARY | 2024-12-30 13:27 | XMS_ITS | Clinical Summary ---
Author Organization [facility] Address [address] [place] [address] Care Team Providers Care Plant Operations Engineer Name Role Phone Silver Isaacs MD Primary Care Provider Social History Tobacco Use Types Packs/Day Years Used Date Smoking Tobacco: Never Assessed Sex and Gender Information Value Date Recorded Sex Assigned at Not on file Legal Sex Male 3:26 PM EDT Gender Identity Not on file Sexual Orientation Not on file Plan of Treatment Upcoming Encounters Date Type Department Care Team (Late st Contact Info) Description 01/16/2025 1:40 PM EDT Consult [facility] [place] [address] [address] Arabella Michele MD [address] [place] [address] Health Maintenance Due Date Last Done Comments DTaP/Tdap/Td Vaccines (1 - Tdap) 01[birth year]21/1954 Pneumococcal Vaccines 50+ (1 of 1 - PCV) 01/21/1986 Zoster (Shingles) Vaccine (1 of 2) 01/21/1986 RSV Vaccine 60 years and old er and Patients (1 - 1-dose 75+ series) 01/21/2011 COVID-19 Vaccine ( - 2023-2 5 season) 2024 Influenza Vaccine 12/12/2024 Hepatitis B Vaccines Aged Out No long er eligible based on patient's age to complete this topic Insurance [employer] MEDICARE Care Teams Plant Operations Engineer Relationship Specialty Start Date End Date Silver Isaacs MD [address] [place] [address] [place] [address] PCP - General Internal Medicine 11/25/24
--- OUTSIDE RECORDS SUMMARY | 2024-12-30 13:27 | XMS_ITS ---
Author Name [facility] Organization Unknown Care Team Organization Name Specialty Phone Email Start Date End [facility] DONNIE KELLEY Primary Care 11/25/2024
--- OUTSIDE RECORDS SUMMARY | 2024-12-30 13:27 | XMS_ITS | Patient Health Record ---
[facility] Address [address] [place] [address] Care Team Providers Care Er Physician Name Role Phone Name Yo BAIG Primary Care Provider Franklyn Renner Unavailable [phone] Reason For Referral No Information Problems Problem Type SNOMED Code ICD Code Onset Dates Problem Status W/U Status Risk Notes Problem Pain in Limb (729.5) Active confirmed Plan Of Treatment Pending Test Test Name Order Date 15168-Lrem Destruction, 05-2706/15/2011 11208-Ufue Destruction, 05-2712/13/2011 Insurance Providers Payer Name Payer Address Payer Phone Subscriber Number Group Number Insured Name Patient Relationship to Insured Coverage Start Date Coverage End Date [facility] [address] [facility] [place] [id number] Carlin Milton Self - patient is the insured Medical (General) History Medical History History ICD Code chicken pox Surgical History Surgery Date(Month/Year) finger surgery
[2024-12-30 13:36] LABS: Hematocrit 37.9 % (42.0-52.0); Hemoglobin 12.5 g/dl (14.0-18.0); Imm Gran Abs Auto 0.02 X10*3/uL (0.00-0.03); Imm Gran Pct Auto 0.3 % (0.0-0.4); Lymphocytes Absolute Auto 1.9 X10*3/uL (1.2-4.9); Mean Corpuscular HGB Conc 33.0 g/dl (31.0-36.0); Mean Corpuscular Hemoglobin 31.0 pg (27.0-33.0); Mean Corpuscular Volume 94.0 fL (80.0-98.0); NRBC Abs Auto 0.000 X10*3/uL (0.0-0.012); NRBC Pct Auto 0.0 /100WBC (0.0-0.2); Platelet Count 208 X10*3/uL (160-400); Red Blood Count 4.03 X10*6/uL (4.60-5.80); White Blood Count 7.0 X10*3/uL (4.8-10.8)
[2024-12-30 13:52] LABS: Appearance Urine Clear; Glucose Urine UA Negative (Negative); PH 6.0 (5.0-9.0); Specific Gravity - Urine 1.010 (1.005-1.025); UMIC TRIGGER UACC YES
[2024-12-30 14:09] LABS: Alanine Aminotransferase 15 U/L (0-40); Albumin Level 4.2 g/dL (3.5-5.0); Alkaline Phosphatase 123 U/L (39-117); Anion Gap 13 (12-20); Aspartate Amino Transferase 26 U/L (5-37); Blood Urea Nitrogen 24 mg/dL (9-16); Calcium 9.2 mg/dL (8.4-10.2); Carbon Dioxide 22 mmol/L (22-29); Chloride 109 mmol/L (96-108); Cholesterol 223 mg/dL (<200); Estimated Glomerular Filt Rate 33; HDL Cholesterol 36 mg/dL (>40); Potassium 4.0 mmol/L (3.3-5.1); Sodium 140 mmol/L (135-145); Total Protein 8.0 g/dL (6.5-8.0); Triglycerides 103 mg/dL (<150)
[2024-12-30 14:30] LABS: PSA,Total (Free>4and<10) 1.20 ng/mL (0.00-4.00)
== END 2024-12-30 12:02 | disposition home or self-care (01) ==
LOC: HO.LAB 12:01
PROVIDERS: PCP Internal Medicine; Visit Provider Internal Medicine
DX: Z00.00 Encounter for general adult medical examination without abnormal findings (principal); I10 Essential (primary) hypertension; Z12.5 Encounter for screening for malignant neoplasm of prostate
CPT/HCPCS: 36415; 80053; 80061; 81001; 84153; 85025

== ENCOUNTER 2025-01-06 15:24 | Outpatient (REF) | payer MEDICARE, SELFPAY ==
--- OUTSIDE RECORDS SUMMARY | 2024-05-05 10:00 | XMS_ITS ---
Author Name [facility] [place] Organization [facility] [place] Address [address] [place] [address] Care Team Providers Care Swing Frame Grinder Operator Name Role Phone KIN SULLIVAN Primary Care [...] Ghotra's Name Patient's Relationship to Policy Ghotra [facility] ([facility]) MEDICARE ADVANTAGE MCR ([facility]) Feb 11, 2011 [id number],[place] PATIENT Selected Encounter This section includes the information on record at [place] for the Encounter. Date/Time Encounter Type Encounter Description Reason Provider Source May 05, 2024 02:00 PM OFFICE O/P EST MOD 30 MIN PRIMARY CARE/MEDICINE ICD-10-CM Z86.718 Personal history of other venous thrombosis and embolism Sindy CHU Isai Encounter Template Text not used by CO Assessments - Encounter Diagnoses This section includes the primary and secondary diagnoses documented for the Encounter. Date/Time Primary/Secondary Diagnosis Diagnosis Name Provider Source May 05, 2024 04:15 PM PRIMARY Personal history of other venous thrombosis and embolism NINI CHU [facility] May 05, 2024 04:15 PM SECONDARY Bradycardia, unspecified NINI CHU [facility] May 05, 2024 04:15 PM SECONDARY Chronic kidney disease, stage 3a VLAD NINI Beltrán [facility] May 05, 2024 04:15 PM SECONDARY Essential (primary) hypertension VLAD NINI Beltrán [facility] May 05, 2024 04:15 PM SECONDARY Foot drop, left foot VLAD NINI Beltrán [facility] Plan of Treatment: Future Appointments (+ 6 months) and Future Tests (+/- 45 days) The Plan of Treatment section includes future care activities for the patient from all [facility] This section includes future appointments and future orders which are active, pending or scheduled. Future Appointments This section includes appointments that were scheduled to occur 6 months from the date of the Encounter, up to a maximum of 20 appointments. The data comes from all [facility] facilities. Appointment Date/Time Appointment Type Appointme nt Facility Name Oct 15, 2024 01:00 PM AMBULATORY - MEDICINE [facility] Active, Pending, and Scheduled Orders This section includes a listing of several types of active, pending, and scheduled orders, including clinic medications orders, diagnostic test orders, procedure orders and consult orders; where the start date of the order is 45 days before the date of the Encounter or 45 days after the date of theEncounter. The data comes from all [facility]. Test Date/Time Test Type Test Details Facility Name May 05, 2024 12:00 AM Laboratory - Chemistry Order CREATININE (eGFR 2020) BLOOD (SST-SERUM) SP [facility] Lab Results: +/- 30 days of the encounter This section includes the Chemistry and Hematology Lab Results on record with CO for the patient. Radiology Reports and Pathology Reports are provided separately, in subsequent sections. Lab Results This section contains the Chemistry/Hematology Results that were resulted 30 days before or 30 daysafter the date of the Encounter. Date/Time Source Result Type Result - Unit Interpretation Reference Range Specimen Type Comment May 05, 2024 02:54 PM [facility] LIPID PANEL, NON FASTING SERUM Specimen Type: SERUM No comment entered. Ordering Provider: MIKAYLA CHU Report Released Date/Time: May 05, 2024 02:20 PM Reporting Lab: [address] [address] Performing Lab: [address] [address] CHOLESTEROL 240 mg/dL H TRIGLYCERIDE 113 mg/dL 0-150 LDL calculated 176 mg/dL H 0-129 CHOL/HDL 5.9 HDL CHOLESTEROL 41 mg/dL 40-60 May 05, 2024 02:54 PM [facility] BASIC METABOLIC PANEL (non-fasting) SERUM Spe cimen Type: SERUM No comment entered. Ordering Provider: NINI CHU Report Released Date/Time: May 05, 2024 02:20 PM Reporting Lab: [address] [address] Performing Lab: [address] [address] UREA NITROGEN 21 mg/dL 7-25 GLUCOSE 95 mg/dL 65-100 SODIUM 139 mmol/L 135-145 POTASSIUM 4.0 mmol/L 3.5-5.0 CHLORIDE 107 mmol/L 100-110 CO2 22 meq/L 20-30 CREATININE, Serum 1.73 mg/dL H 0.50-1.40 eGFR(CKD-EPI 2020) 38 mL/min L >60 May 05, 2024 02:54 PM [facility] CBC AND DIFF (AUTO) BLOOD Specimen Type: BLOO D No comment entered. Ordering Provider: NINI CHU Report Released Date/Time: May 05, 2024 02:20 PM Reporting Lab: [address] [address] Performing Lab: [address] [address] WBC 7.88 10*3/uL 4.50-11.00 RBC 4.10 10*6/uL L 4.23-5.66 HGB 12.7 g/dL L 12.8-17 HCT 38.6 L 39.2-50.4 MCV 94.1 fL 82-99 MCHC 32.9 g/dL 30.8-35.1 PLT 213 10*3/uL 140-360 RDW-CV 13.6 12.0-16.0 MONO, ABS 0.59 10*3/uL 0.30-1.10 MCH 31.0 pg 26.2-32.6 NEUT % 64.1 43.7-75.8 LYMPH % 25.8 14.0-42.3 MONO % 7.5 5.1-13.7 EOS % 1.5 0.4-6.8 BASO % 0.8 0.1-2.0 NEUT, ABS 5.06 10*3/uL 2.20-7.60 LYMPH, ABS 2.03 10*3/uL 1.00-3.20 EOS, ABS 0.12 10*3/uL 0.03-0.44 BASO, ABS 0.06 10*3/uL 0.01-0.13 IMMATURE GRAN % 0.3 0.0-0.7 IMMATURE GRAN, ABS 0.02 10*3/uL 0.00-0.0 6 NRBC % 0.0 0.0-0.0 NRBC, ABS 0.00 10*3/uL 0.00-0.00 May 05, 2024 02:54 PM [facility] LIVER FUNCTION SERUM Specimen Type: SERUM No comment entered. Ordering Provider: NINI CHU Report Released Date/Time: May 05, 2024 02:20 PM Reporting Lab: [address] [address] Performing Lab: [address] [address] PROTEIN,TOTAL 8.3 g/dL 6.0-8.3 ALBUMIN 4.1 g/dL 3.5-5.0 ALKALINE PHOSPHATASE 98 U/L 40-150 AST 21 U/L 5-34 ALT 14 U/L BILIRUBIN, TOTAL 0.5 mg/dL 0.2-1.2 May 05, 2024 02:54 PM [facility] CBC BLOOD Specimen Type: BLOOD No comment entered. Ordering Provider: NINI CHU Report Released Date/Time: May 05, 2024 02:20 PM Reporting Lab: [facility] [address] [facility] [address] Performing Lab: [facility] [address] [facility] [address] WBC 7.88 10*3/uL 4.50-11.00 RBC 4.10 10*6/uL L 4.23-5.66 HGB 12.7 g/dL L 12.8-17 HCT 38.6 L 39.2-50.4 MCV 94.1 fL 82-99 MCHC 32.9 g/dL 30.8-35.1 PLT 213 10*3/uL 140-360 RDW-CV 13.6 12.0-16.0 MCH 31.0 pg 26.2-32.6 May 05, 2024 02:54 PM [facility] PT & INR (COUMADIN) PLASMA Specimen Type: PLAS MA No comment entered. Ordering Provider: NINI CHU Report Released Date/Time: May 05, 2024 02:20 PM Reporting Lab: [address] [address] Performing Lab: [address] [address] INR 1.2 PROTIME 13.4 s H 10.0-13.1 Vital Signs: All taken on the encounter date This section contains inpatient and outpatient Vital Signs collected on the date of the Encounter. Date/Time Temperature Pulse Blood Pressure Respiratory Rate SP02 Pain Height Weight Body Mass Index Source May 05, 2024 02:13 PM 98 93 156/78 19 97 [facility] Social History: Smoking Status (Most current) and Tobacco Use (All prior to encounter date) This section includes the most current, and the historical, smoking and tobacco- related health factors from the [place] facility where the Encounter took place. Current Smoking Status This section includes the most current smoking, or tobacco-related health factor, from the [place] facility where the Encounter took place. Date/Time Current Smoking Status Comment Art braden Aug 03, 2023 04:37 PM VA-TOBACCO FORMER USER [facility] Tobacco Use History This section includes a history of the smoking, or tobacco-related health factors, that were collected on or before the date of the Encounter. The data comes from the [place] facility where the Encounter took place. Date/Time Smoking Status/Tobacco Use Comment Mariel muniz Aug 03, 2023 04:37 PM VA-TOBACCO QUIT 15 YRS OR MORE [facility] Encounter Notes: All associated encounter notes This section contains the clinical notes associated to the Encounter. Date/Time Encounter Note(s) Provider Source May 15, 2024 08:19 AM LETTERS: LOCAL TITLE: PATIENT LETTER (T) STANDARD TITLE: LETTERS DATE OF NOTE: MAY 15, 2024@08:19 ENTRY DATE: MAY 15, 2024@08:19:18 AUTHOR: SHELLEY CHU COSIGNER: URGENCY: STATUS: COMPLETED DEPARTMENT OF [facility] Toll Free Number Primary Care Telephone Assistance can be reached at extension [phone] [facility] scheduling can be reached at extension [phone] [facility] scheduling can be reached at ext [phone] ZEFERINO JARRETT MILTON [address], [place], [address] Dear Kang Milton, I wanted you to have a copy of the blood tests done in April. the lab work shows abnormal kidney function/creatinine level of 1.73, elev cholesterol and mild anemia which is likely due to reduced kidney function. Please show these results to your acetylene operator/kidney specialist at your next appointment. Sincerely, Your Primary Care Team [facility] [address] [facility] [address] [place] [address] [place] [address] [phone] [facility] [address] [place] [address] [place] [address] [phone] [facility] [address] [facility],1st Floor [address] [place] [address] [place] [address] SHELLEY CHU [facility] May 05, 2024 09:58 AM PHYSICIAN NOTE: LOCAL TITLE: MD NOTE STANDARD TITLE: PHYSICIAN NOTE DATE OF NOTE: MAY 05, 2024@09:58 ENTRY DATE: MAY 05, 2024@09:58:23 AUTHOR: SHELLEY CHU EXP COSIGNER: URGENCY: STATUS: COMPLETED HISTORY OF PRESENT ILLNESS: = ZEFERINO JARRETT MILTON, is a 89 yo WHITE MALE who presents at the CO at [facility] CC. multiple problems HPI. vet presents to PCP clinic to review his medical concerns: 1. 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 left leg weakness, NO falls but left foot drop/vet prefers NOT to have MRI as Dr Isaacs-community PCP ordered due to pacemaker 5. HTN, no angina 6. CKD, vet had acute decompensation of renal fxn during repair of AAA when he was hospitalized 3 mos ago, renal fxn improving. sees nephrology per his outside providers. SH nonsmoker Active problems - Computerized Problem List is the source for the followin. Long-term current use of anticoagulant 2. Syncope 3. Essential hypertension 4. Hyperlipidemia (SCT [id number]) 5. History of DVT (deep vein thrombosis) 6. H/O: cardiac pacemaker in situ 7. Pulmonary embolism HISTORY: PERIOD OF SERVICE - [facility] FROM Jul TO Jan COMBAT SERVICE INDICATED: No SERVICE CONNECTED % - NONE FOUND VITAL SIGNS: Temperature 97.2 F [36.2 C] (12/06/2023 10:35) Blood Pressure 164/102 (12/06/2023 10:35) Pulse 86 (12/06/2023 10:35) Respiration 16 (12/06/2023 10:35) Pain 0 (12/06/2023 10:35) BMI BMI: 29.8 Weight 207 lb [93.89 kg] (12/06/2023 10:35) Pulse Oximetry 94% (12/06/2023 10:35) Review of Systems: CONSTITUTIONAL: No fever, no loss of appetite ENT: No sore throat, no cough CARDIOVASCULAR: No chest pain, no palpitations RESPIRATORY: No SOB, no wheezing GASTROINTESTINAL: No abd pain, no N/V/D, no change in stool EXAMINATION General: Well-appearing, 89 yo gentleman in no obvious distress. Mental Status: Alert and oriented x 3 Head: Normocephalic. Eyes: Anicteric sclerae. Conjunctivae noninjected. Neck: Supple. no adenopathy/ no bruits Lungs: CTA. no crackles, no wheezing CV: RRR. No murmur DATA REVIEW >> MEDICATIONS Reviewed Today (VA & Non VA) ALLERGIES: Patient has answered NKA Active Outpatient Medications (including Supplies): Issue Date Status Last Fill Active Outpatient Medications Refills Expiration === 1) LISINOPRIL 5MG TAB Qty: 90 for 90 days Sig: HOLD Issue: 10/24/23 TAKE ONE TABLET BY MOUTH ONCE DAILY TO Refills: 1 Last : 10/25/23 CONTROL BLOOD PRESSURE Expr : 10/24/24 Indication: FOR HIGH BLOOD PRESSURE 2) TAMSULOSIN HCL 0.4MG CAP Qty: 90 for 90 days HOLD Issue: 02/11/24 Sig: TAKE ONE CAPSULE BY MOUTH AT BEDTIME Refills: 3 Indication: FOR ENLARGED PROSTATE Expr : 02/11/25 >> LABS REVIEWED TODAY: CHEM 7 TREND LAB CUMULATIVE SELECTED 2 No selection items chosen for this component. === CBC TREND No data available === HEMOGLOBIN A1C TREND No data available === LIPID PANEL TREND No data available === UREA NITROGEN - NONE FOUND CREATININE-EGFR - NONE FOUND === LIVER PANEL TREND No data available === PSA TREND No data available = TSH - NONE FOUND == ANEMIA PANEL TREND No data available === PT INR TREND No data available === >> HEALTH MAINTENANCE PREVENTIVE MEDICINE GOALS Advance Directive Screen MH AD Sep Toxic Exposure Screening DUE NOW Pneumococcal Conjugate Vaccine (PCV15/PCDUE NOW Influenza Immunization DUE NOW Medication Reconciliation DUE NOW COVID-19 Immunization DUE NOW Tdap Immunization DUE NOW Herpes Zoster (Shingles) Vaccine DUE NOW (Optional) Whole Health Documentation DUE NOW ASSESSMENT/PLAN: 1. hx of DVT/Pulm embolus 2. hx of bradycardia 3. left leg weakness 4. HTN 5. CKD Plan 1. continue apixiban 2.5 bid 2. ACC consult/ check labs 3. vet has pacemaker since 2016/ has cardi f/u w/ Dr Michele/referral per his community PCP 4. consider MRI as suggested by PCP/see HPI 5. continue amlodipine 6. monitor renal fxn/vet will keep nephrology appt soon 7. f/u w/ VA PCP in 5 mos and PRN LAB ORDERS FOR NEXT APPT. spent in patient care and education No barriers; Patient understands and agrees to current treatment plan. If pt has any questions, concerns, or changes in current health status he/she will call or come in to the VA. Medication Reconciliation: Outpatient: Has the patient been taking medications as documented in the EMLR? YES: The patient has been taking medications as documented in the EMLR. Essential Medication List for Review used to complete this medication reconciliation. INCLUDED IN THIS LIST: Alphabetical list of active outpatient prescriptions dispensed from this CO (local) and dispensed from another CO or [facility] facility (remote) as well as inpatient orders (local, pending and active), local clinic medications, locally documented non-VA medications, and local prescriptions that have or been discontinued in the past 90 days. - All changes in medications, including all non-VA/Herbal/OTC medications were entered into CPRS. - If there were any medications the patient should no longer take, they were discontinued. - The patient/caregiver was instructed to update this list, discard old lists, and take this list to the next appointment, whether with a VA or non-VA provider. /osiel/ NINI CHU MD PHYSICIAN Signed: 05/05/2024 16:15 SHELLEY CHU [facility]
--- OUTSIDE RECORDS SUMMARY | 2024-09-19 12:30 | XMS_ITS ---
Author Organization Silver Isaacs MD Address [address] [place] [phone] Care Team Providers Care Museum Preparator Name Role Phone Silver Isaacs Primary Care Provider [phone] Allergies No Known Allergies REASON FOR VISIT 4 month, QA asking to add CKD code ? Encounters Encounter Location Date Provider Diagnosis Silver Isaacs MD [address] [place] [address] [place] [phone] 09/19/2024 Silver Isaacs Plan Of Treatment Next Appt Details Provider Name:Silver hemphill, 07/06/2025 01:45:00 PM, [address] [place] [address], Suite [facility], [place], [place], [phone], Provider Name:Silver hemphill, 01/01/2026 08:00:00 AM, [address] [place] [address], [address], [phone], Provider Name:Silver hemphill, 01/08/2026 01:30:00 PM, [address] [place] [address], [address], [phone], Progress Notes * YOANCarlinDOB:1935 ( 89 yo M)Acc No.[id number]:09/19/2024 Progress Notes Patient: Carlin TORREZ Provider: Leigh Ann Isaacs MD :1935 A ge:89 Y S ex:Male Date:09/19/2024 Address:[address] [place] [address] [id number] Subjective: * Chief Complaints: * 1 . [...] MD Date: 0 09/19/2024 Generated for Barbara ryder/Cindy/Steveitting on: 0 01/06/2025 04:21 PM EDT
--- OUTSIDE RECORDS SUMMARY | 2024-09-22 11:00 | XMS_ITS ---
Author Name [facility] Organization [facility] Address [address] [place] [address] Care Team Providers Care Corporate Safety Director Name Role Phone KIN SULLIVAN Primary Care [...] Ghotra's Name Patient's Relationship to Policy Ghotra [facility] (WNR) MEDICARE ADVANTAGE [facility] (R) Feb 11, 2011 [id number] [id number] MILES,PER RY PATIENT Selected Encounter This section includes the information on record at [place] for the Encounter. Date/Time Encounter Type Encounter Description Reason Provider Source September 22, 2024 03:00 PM Outpatient Encounter PRIMARY CARE/MEDICINE TAMMIE SULLIVAN Isai Encounter Template Text not used by [place] Plan of Treatment: Future Appointments (+ 6 months) and Future Tests (+/- 45 days) The Plan of Treatment section includes future care activities for the patient from all [facility] treatment[facility]. This section includes future appointments and future orders which are active, pending or scheduled. Future Appointments This section includes appointments that were scheduled to occur 6 months from the date of the Encounter, up to a maximum of 20 appointments. The data comes from all [place] treatment facilities. Appointment Date/Time Appointment Type Appointme nt Facility Name Oct 15, 2024 01:00 PM AMBULATORY - MEDICINE [facility] Vital Signs: All taken on the encounter date This section contains inpatient and outpatient Vital Signs collected on the date of the Encounter. Date/Time Temperature Pulse Blood Pressure Respiratory Rate SP02 Pain Height Weight Body Mass Index Source September 22, 2024 03:11 PM 97.7 92 138/76 16 94 0 70 200.6 29 [facility] Social History: Smoking Status (Most current) and Tobacco Use (All prior to encounter date) This section includes the most current, and the historical, smoking and tobacco- related health factors from the [place] facility where the Encounter took place. Current Smoking Status This section includes the most current smoking, or tobacco-related health factor, from the [place] facility where the Encounter took place. Date/Time Current Smoking Status Comment Facil ity Aug 03, 2023 04:37 PM [place]-TOBACCO FORMER USER [facility] Tobacco Use History This section includes a history of the smoking, or tobacco-related health factors, that were collected on or before the date of the Encounter. The data comes from the [place] facility where the Encounter took place. Date/Time Smoking Status/Tobacco Use Comment F acility Aug 03, 2023 04:37 PM [place] 15 YRS OR MORE [facility] Encounter Notes: All associated encounter notes This section contains the clinical notes associated to the Encounter. Date/Time Encounter Note(s) Provider Source September 22, 2024 03:18 PM PREVENTIVE MEDICINE NURSING NOTE: LOCAL TITLE: CLINICAL REMINDERS/NURSING STANDARD TITLE: PREVENTIVE MEDICINE NURSING NOTE DATE OF NOTE: SEPTEMBER 22, 2024@15:18 ENTRY DATE: SEPTEMBER 22, 2024@15:18:34 AUTHOR: HUMBERTO LANDON COSIGNER: URGENCY: STATUS: COMPLETED Depression Screening: Perform PHQ-2 A PHQ-2 screen was performed. The score was 0 which is a negative screen for depression. Over the past two weeks, how often have you been bothered by the following problems? 1. Little interest or pleasure in doing things Not at all 2. Feeling down, depressed, or hopeless Not at all Suicide Screen: C-SSRS Screening [place] Suicide Severity Rating Scale (C-SSRS) screener 1. Over the past month, have you wished you were or wished you could go to sleep and not wake up? No 2. Over the past month, have you had any actual thoughts of killing yourself? No 3. Over the past month, have you been thinking about how you might do this? Response not required due to responses to other questions. 4. Over the past month, have you had these thoughts and had some intention of acting on them? Response not required due to responses to other questions. 5. Over the past month, have you started to work out or worked out the details of how to kill yourself? Response not required due to responses to other questions. 6. If yes, at any time in the past month did you intend to carry out this plan? Response not required due to responses to other questions. 7. In your lifetime, have you ever done anything, started to do anything, or prepared to do anything to end your life (for example, collected pills, obtained a gun, gave away valuables, went to the roof but didn't jump)? No 8. If YES, was this within the past 3 months? Response not required due to responses to other questions. Homelessness/Food Insecurity Screen: In the past 2 months, have you been living in stable housing that you own, rent, or stay in as part of a household? Yes - Living in stable housing. Are you worried or concerned that in the next 2 months you may NOT have stable housing that you own, rent, or stay in as part of a household? No - Not worried about housing near future The reports the following: Within the past 12 months, you worried whether your food would run out before you got money to buy more. Never true Within the past 12 months, the food you bought just didn't last and you didn't have money to get more. 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 The [place]/caregiver was informed that we will continue to ask this screening question every 5 years. They can contact their provider/healthcare team if they have concerns about exposures and would like to be screened sooner. Printed information was offered and provided if desired. Falls & Incontinence Screen: Falls Screen: During the past 12 months, did the patient report any falls? 1. One fall with no injury. Incontinence Screen: During the past 12 months, has the patient has any characteristics of incontinence (ability, voiding, leakage, etc.)? No incontinence. Tobacco Use Screening: The patient is a former cigarette smoker. The patient has never used other types of tobacco. Alcohol Use Screen (AUDIT-C): Alcohol Screen: SCREEN FOR ALCOHOL (AUDIT-C) An alcohol screening test (AUDIT-C) was negative (score=0). 1. How often did you have a drink containing alcohol in the past year? Consider a drink to be a 12 ounce can or bottle of regular beer, 8 ounces of malt liquor, a 5 ounce glass of table wine, or a 1.5 ounce shot of liquor (like scotch, gin, or vodka). Never 2. How many drinks containing alcohol did you have on a typical day when you were drinking in the past year? Response not required due to responses to other questions. 3. How often did you have six or more drinks on one occasion in the past year? Response not required due to responses to other questions. (Optional) Whole Health Documentation: What matters the most to you? What motivates you to be healthy? (MAP) Response: to get out of bed in the morning Pneumococcal Conjugate Vaccine (PCV15/PCV20/PCV21): Refuses PCV vaccine Immunization: PNEUMOCOCCAL CONJUGATE, UNSPECIFIED FORMULATION Refusal Reason: PATIENT DECISION Patient refuses all immunization(s) in the PneumoPCV group Date Documented: 09/22/24 15:29 Advance Directive Screen MH AD: Patient does not have a completed advance directive on file at any facility, [facility] or outside. S/he is not interested in completing one at this time. The patient received education about Advance Directives and written notification of his/her rights. Comment: not at this time Influenza Immunization: Deferral / Refusal The patient declines to receive the recommended dose of seasonal influenza vaccine. Immunization: INFLUENZA, UNSPECIFIED FORMULATION Refusal Reason: PATIENT DECISION Patient refuses all immunization(s) in the FLU group Date Documented: 09/22/24 15:30 Tdap Immunization: The patient declines to receive the recommended dose of Tdap vaccine. Immunization: TDAP Refusal Reason: PATIENT DECISION Patient refuses all immunization(s) in the TDAP group Date Documented: 09/22/24 15:30 Herpes Zoster (Shingles) Vaccine: The patient declines to receive the recommended dose of zoster (shingles) vaccine. Immunization: ZOSTER RECOMBINANT Refusal Reason: PATIENT DECISION Patient refuses all immunization(s) in the ZOSTER group Date Documented: 09/22/24 15:31 Sexual Orientation: The patient thinks of their sexual orientation as: Straight or Heterosexual RSV Immunization: Respiratory Syncytial Virus (RSV) Vaccine: Refused [place]ar[place] (RSV vaccine, adjuvanted, Arexvy). Immunization: RSV, RECOMBINANT, PROTEIN SUBUNIT RSVPREF3, ADJUVANT RECONSTITUTED, 0.5 ML, PF Refusal Reason: PATIENT DECISION Patient refuses all immunization(s) in the RSV group Date Documented: 09/22/24 15:32 RHS Screen: RHS Screen Session Format: Face to Face Environmental Check Screening was not completed at this time due to: Another adult present COVID-19 Immunization: Refused Moderna Monovalent COVID-19 vaccine Immunization: COVID-19 (MODERNA), MRNA, LNP-S, PF, 50 MCG/0.5 ML (AGES 12+ YEARS) Refusal Reason: PATIENT DECISION Patient refuses all immunization(s) in the COVID-19 group Date Documented: 09/22/24 15:33 /osiel/ HUMBERTO LANDON LPN LPN Signed: 09/22/2024 15:33 HUMBERTO LANDON [place] [facility]
--- OUTSIDE RECORDS SUMMARY | 2024-10-15 09:00 | XMS_ITS ---
Author Name [facility] [place] [facility] [place] Address [address] [place] [address] Care Team Providers Care Echocardiologist Name Role Phone KIN SULLIVAN Primary Care [...] Ghotra's Name Patient's Relationship to Policy Ghotra [facility] (R) MEDICARE ADVANTAGE MCR ([facility] Feb 11, 2011 [id number] [phone],[place] PATIENT Selected Encounter This section includes the information on record at [place] for the Encounter. Date/Time Encounter Type Encounter Description Reason Provider Source Oct 15, 2024 01:00 PM OFFICE O/P EST MOD 30 MIN PRIMARY CARE/MEDICINE ICD-10-CM I71.40 Abdominal aortic aneurysm, without rupture, unspecified KIN SULLIVAN [facility] Encounter Template Text not used by [place] Assessments - Encounter Diagnoses This section includes the primary and secondary diagnoses documented for the Encounter. Date/Time Primary/Secondary Diagnosis Diagnosis Name Provider Source Oct 15, 2024 04:07 PM PRIMARY Abdominal aortic aneurysm, without rupture, unspecified KIN SULLIVAN [facility] Oct 15, 2024 04:07 PM SECONDARY Chronic kidney disease, stage 3a KIN SULLIVAN [facility] Oct 15, 2024 04:07 PM SECONDARY Essential (primary) hypertension [facility] Oct 15, 2024 04:07 PM SECONDARY Foot drop, left foot [facility] Oct 15, 2024 04:07 PM 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 This section includes future appointments and future orders which are active, pending or scheduled. Future Appointments This section includes appointments that were scheduled to occur 6 months from the date of the Encounter, up to a maximum of 20 appointments. The data comes from all [place] treatment facilities. Appointment Date/Time Appointment Type Appointme nt Facility Name Apr 14, 2025 11:00 AM AMBULATORY - MEDICINE [facility] Vital Signs: All taken on the encounter date This section contains inpatient and outpatient Vital Signs collected on the date of the Encounter. Date/Time Temperature Pulse Blood Pressure Respiratory Rate SP02 Pain Height Weight Body Mass Index Source Oct 15, 2024 12:59 PM 97.8 F 100 /min 152/78 mm[Hg] 16 /min 97 % 0 70 in 200.2 lb 29 [facility] Social History: Smoking Status (Most current) and Tobacco Use (All prior to encounter date) This section includes the most current, and the historical, smoking and tobacco- related health factors from the [place] facility where the Encounter took place. Current Smoking Status This section includes the most current smoking, or tobacco-related health factor, from the [place] facility where the Encounter took place. Date/Time Current Smoking Status Comment Art braden Aug 03, 2023 04:37 PM VA-TOBACCO FORMER USER [facility] Tobacco Use History This section includes a history of the smoking, or tobacco-related health factors, that were collected on or before the date of the Encounter. The data comes from the [place] facility where the Encounter took place. Date/Time Smoking Status/Tobacco Use Comment F cristy Aug 03, 2023 04:37 PM VA-TOBACCO QUIT 15 YRS OR MORE [facility] Encounter Notes: All associated encounter notes This section contains the clinical notes associated to the Encounter. Date/Time Encounter Note(s) Provider Source Oct 15, 2024 01:04 PM PREVENTIVE MEDICINE NURSING NOTE: LOCAL TITLE: CLINICAL REMINDERS/NURSING STANDARD TITLE: PREVENTIVE MEDICINE NURSING NOTE DATE OF NOTE: OCT 15, 2024@13:04 ENTRY DATE: OCT 15, 2024@13:04:27 AUTHOR: HUMBERTO LANDON EXP COSIGNER: URGENCY: STATUS: COMPLETED Influenza Immunization: No influenza vaccination was received during the recent influenza season. RHS Screen: RHS Screen Session Format: Face to Face Environmental Check Screening was not completed at this time due to: Another adult present /es/ HUMBERTO LANDON LPN LPN Signed: 10/15/2024 13:06 HUMBERTO LANDON [facility] Oct 15, 2024 12:32 PM PHYSICIAN A&P MECHANIC NOTE: LOCAL TITLE: PA NOTE STANDARD TITLE: PHYSICIAN A&P MECHANIC NOTE DATE OF NOTE: OCT 15, 2024@12:32 ENTRY DATE: OCT 15, 2024@12:32:08 AUTHOR: ARNOL SULLIVAN EXP COSIGNER: URGENCY: STATUS: COMPLETED Zeferino Milton J [id number] ===== CARE TEAM ===== Community Primary Care Provider: PCP Dr Benz [place] Specialists: None [place] Specialists: Dr Morgan/Romelia: CARDIOL Nephrology/[facility] ===== HISTORY ===== COMBAT SERVICE INDICATED: No PERIOD OF SERVICE - [facility] FROM Jul TO Jan ===== HISTORY OF PRESENT ILLNESS ===== Patient presents today for FU in PC with new PCP. Last saw Dr Caba Apr 2024; he continues his primary care with [place] Benz [place] Accomp by his today, former RN. Meds reviewed: pt and his report he was rxd tamsulosin for 1 mo; d/cd in Jan 2024 post hospitalization; and no longer taking lisinopril. They report consultation with Records Management Clerk in Mar 2024, but no change in plan was made and no FU appt was recommended. AAA (large infrarenal aneurysm 8.2 cm) 2023. Surgery was complicated by endovascular leak, required repeat surgery several days later; then complicated by MARÍA ELENA. Renal function improved, last labs Apr 2024 Post hopsitalization was started on tamsulosin ,lisinopril, amlodipine; now off tamsul and lisin. Reports BP gets low and is reluct to incr med doses. LEFT Foot drop: began approx 2022. Podiatry gave ankle brace; but no signif benefit. MRI discussed with pcp, pt declined. Sxs per pt are mild; denies falls and no effect on driving Pacemaker: Follows w cardiol; cant recall last visit. Saw Dr León who has retired; to see new Cardilogist soon. Hx DVT and saddle PE in jun 2023. on apixaban for life. reports feeling well COPY OF CARDIOL OV note 04/18/24 89 yo M with recent history of EVAR and right renal artery stenting for enlarging AAA. His initial procedure on 01/18/24 was complicated by coverage the left renal artery as well as development of a type I endoleak. He was brought back to the OR on 9/13/24 for placement of an aortic cuff as well as left renal stenting and treatment of his endoleak with endoanchors and coiling. He did reasonable well after this operation. He did develop acute kidney injury which did not require dialysis. [place] denies: signif loss/gain in weight, chills, severe fatigue, difficulty swallowing, ear pain, cough, SOB/CAMACHO, chest pain, palpiations, CAMACHO, abdominal pain, new urinary or bowel changes ===== RELEVANT PAST MEDICAL HISTORY ===== Active problems - Computerized Problem List is the source for the followin. AAA - Abdominal aortic aneurysm endovascular repair 01/2024 2. Left foot drop 3. Chronic kidney disease stage 3A creat was 2.7 Jan 2024- now 1.7 4. Echocardiogram abnormal per DR Morgan. vet had LVEF 45%, diastolic dysfxn. Jan 2024 5. Long-term current use of anticoagulant 6. Syncope vet had [facility] 7. Essential hypertension 10/2024 on amlodipine 8. Hyperlipidemia (SCT [id number]) 2022/- total chol 220/HDL 35/ LDL 164- vet declines statin/ declines to repeat lipids 9. History of DVT (deep vein thrombosis) DVT left leg/ results in pulm embolus-hosp at [facility] Jun 2023 10. H/O: cardiac pacemaker in situ 11. Pulmonary embolism in 2023, after DVT ===== PAST SURGICAL HISTORY ===== Aortic aneurysm repair 01/2024 (complic by MARÍA ELENA) 2020 approx Cataract extraction (bilat) ===== FAMILY HISTORY ===== father age 74/appendicitis and complications from blood transfusion/ Mother age 90. NO FH of colon cancer ===== SOCIAL HISTORY ===== lives at home with who is RN, smoked cigs from 1960 to 1989/quit for past 34 years 67 yrs. 5 children: one dtr is RN, lives in [place] Adult son lives in home. 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 Alcohol Use: rare/none Tobacco Use: quit Drug Use: none Mobility: full Exercise:none routine ===== ALLERGIES ===== No Known Allergies ===== MEDICATIONS ===== Active and Recently Outpatient Medications (excluding Supplies): Active Outpatient Medications Status === 1) AMLODIPINE BESYLATE 5MG TAB TAKE ONE TABLET BY MOUTH ONCE ACTIVE DAILY FOR BLOOD PRESSURE/HEART, DO NOT TAKE WITH GRAPEFRUIT JUICE Indication: FOR HIGH BLOOD PRESSURE 2) APIXABAN 5MG TAB TAKE ONE-HALF TABLET BY MOUTH EVERY 12 ACTIVE HOURS Indication: FOR PREVENTION OF BLOOD CLOTS Active Non-VA Medications Status === 1) Non-VA ACETAMINOPHEN 325MG TAB 325MG BY MOUTH EVERY 6 HOURS ACTIVE NEEDED Indication: FOR PAIN 2) Non-VA ASPIRIN 81MG EC TAB 81MG BY MOUTH ONCE DAILY ACTIVE Indication: FOR TREATMENT TO PREVENT A HEART ATTACK 3) Non-VA DOCUSATE NA 100MG CAP 100MG BY MOUTH TWICE DAILY ACTIVE NEEDED Indication: FOR CONSTIPATION 4) Non-VA METOPROLOL TARTRATE 25MG TAB 12.5MG BY MOUTH TWICE ACTIVE DAILY Indication: FOR HIGH BLOOD PRESSURE 6 Total Medications ===== REVIEW OF SYMPTOMS ===== see HPI ===== PHYSICAL EXAM ===== Vitals: 97.8 F [36.6 C] (10/15/2024 12:59) 100 (10/15/2024 12:59) 16 (10/15/2024 12:59) 152/78 (10/15/2024 12:59) 0 (10/15/2024 12:59) 70 in [177.8 cm] (10/15/2024 12:59) 200.2 lb [90.81 kg] (10/15/2024 12:59) BMI: 28.8 Exam: Gen.: Alert, no acute distress, sitting comfortably. Eyes: Noninjected No icterus. HEENT: Normocephalic, atraumatic. Hearing grossly intact. EACs clear, TMs normal Neck: No masses CV: RRR, No Murmurs. No carotid bruits. No LE Edema Respiratory: No conversational dyspnea. No audible wheezing stridor or cough. Skin: No obvious rashes. Neuro: Cranial nerves II-XII grossly intact Psych: Normal affect, cooperative. Intact judgment and insight. A&O x3. Gait: very slight L foot drop. able to toe walk; normal sensation and strength ===== RECENT LABS ===== Labs: == == HEMOGLOBIN A1C TREND No data available == == CBC TREND Collection DT Spec WBC RBC HGB HCT MCV MCH PLT 05/05/2024 14:54 BLOOD 7.88 4.10 L 12.7 L 38.6 L 94.1 31.0 213 == == CHEM 7 TREND LAB CUMULATIVE SELECTED Collection DT Spec GLUCOSE BUN CREATIN Sodium K+/Pot CL CO2 05/05/2024 14:54 SERUM 95 21 1.73 H 139 4.0 107 22 LAB CUMULATIVE SELECTED 2 No selection items chosen for this component. CHEM 7 Results Collection DT Spec Sodium K+/Pot CL CO2 GLUCOSE BUN 05/05/2024 14:54 SERUM 139 4.0 107 22 95 21 == == LIPID PANEL TREND Collection DT Spec CHOL HDL CHO/HDL LDL-c TRIG 05/05/2024 14:54 SERUM 240 H 41 5.9 176 H 113 == == == == THYROID PANEL No data available for: TSH THYROID TOTAL T3 THYROID TOTAL T4 THYROID T4 FREE(FT4) (WROX) == == PSA No data available for: PSA == == SrCr (last 6 weeks): CREATININE-EGFR - NONE FOUND CRCL IBW: CrCl(est): 30.5 mL/min (Creat:1.73 05/05/24) CRCL ACT: No Creat CRCL ADJ: 30.5 mL/min (05/05/24) ===== ASSESSMENT AND PLAN ===== Abd aortic aneurysm: s/p endoscopic repair 01/2024, follows w [facility] vascular. Sick sinus syndrome, dxd post syncope in 2016; has pacemaker; to see Cardiol soon (Dr León has retired, to see new cards/ [facility]) Hx elev chol: no meds. declines any meds for chol HTN: now on amlodipine. Labs: per [facility]. CKD stable. CKD: stble. [facility] renal function improved s/p MARÍA ELENA after AAA repair. Foot drop: on LEFT. discussed w. pt. He prefers no MRI and will d/w his PCP Dr Benz. inquired about Chiro, can't do unless MRI first. pulmonary embolus: from DVT 06/2023; no eliquis for life, renal dose. continue apixiban 2.5 q 12 hrs VACCINES: DECLINES ALL. Unable to access PCP records at [facility]. On this date of the encounter, I spent 45 minutes on some or all of the following: chart review, history, physical examination, treatment planning, education and counseling of the patient/family/care manager cna, placing orders, communicating with other health care providers and documentation in the electronic health record. ===== HEALTH MAINTENANCE ===== Colonoscopy : Tetanus: Declines Vaccine Pneumonia Vaccine: Declines Vaccine Flu Vaccine:Declines Vaccine Covid Vaccine: Declines Vaccine ===== FOLLOW UP ===== VISIT TYPE: 6 mo FU appt ( Office notes from [facility] [place] Benz) Will need labs prior to appt (RENAL panel) Upcoming Appointments: /osiel/ KIN SULLIVAN PA-C PA-C Signed: 10/15/2024 16:07 ARNOL SULLIVAN CNTRL TRN [facility]
--- OUTSIDE RECORDS SUMMARY | 2024-12-04 03:16 | XMS_ITS | Continuity of Care Document ---
Author Name [facility] Organization [facility] Care Team Providers Care Fisher Purse Seine Name Role Phone [facility] Unavailable Unavailable Problems Combined list of problems from Department of Defense and Veterans Affairs facilities. It does not include entries that were removed or entered in error. Problem Status Onset Date Problem Type Date of Resolution Comments Source Pulmonary embolism Active 05/14/19 24 Condition September 22, 2024 Entered By: KIN SULLIVAN Comment: in 2023, after DVT [facility] [place] [facility] H/O: cardiac pacemaker in situ Active 05/14/19 16 Condition [facility] [place] [facility] AAA - Abdominal aortic aneurysm Active Condition Oct 15, 2024 Entered By: KIN SULLIVAN Comment: endovascular repair 01/2024 [facility] [place] [facility] Acute kidney injury Active Condition Oct 20, 2024 Entered By: KIN SULLIVAN Comment: post AAA repair 01/2024. see Nephrol note from 03/2024 in cprs 10/20/24 [facility] [place] [facility] Chronic kidney disease stage 3A Active Condition May 05 Entered By: KARRI CHU Comment: creat was 2.7 Jan 2024- now 1.7 [facility] [place] [facility] Echocardiogram abnormal Active Condition May 05, 2024 Entered By: KARRI CHU Comment: per DR Morgan. vet had LVEF 45%, diastolic dysfxn. Jan 2024 [facility] [place] [facility] Essential hypertension Active Condition Oct 15, 2024 Entered By: KIN SULLIVAN Comment: 10/2024 on amlodipine [facility] [place] [facility] History of DVT (deep vein thrombosis) Active Condition Aug 09, 2023 Entered By: KARRI CHU Comment: DVT left leg/ results in pulm embolus-hosp at [facility] Jun 2023 [facility] MELVIN DIA [facility] Hyperlipidemia (SCT 73688586) Active Condition Aug 09, 2023 Entered By: KARRI CHU Comment: 2022/- total chol 220/HDL 35/ LDL 164- vet declines statin/ declines to repeat [facility] Left foot drop Active Condition [facility] Long-term current use of anticoagulant Active Condition [facility] Syncope Active Condition Aug 08 Entered By: KARRI CHU Comment: vet had pacemaker placed 2015 for sinus node dysfunction-anna ken cardio [facility] MELVIN DIA [facility] Diagnosis: ICD-10-CM I71.40 Abdominal aortic aneurysm, without rupture, unspecified Active Diagnosis [facility] Diagnosis: ICD-10-CM Z86.718 Personal history of other venous thrombosis and embolism Active Diagnosis [facility] Diagnosis: ICD-10-CM Z86.711 Personal history of pulmonary embolism Active Diagnosis [facility] Diagnosis: ICD-10-CM Z51.81 Encounter for therapeutic drug level monitoring Active Diagnosis [facility] ([id number]) Diagnosis: ICD-10-CM Z71.9 Counseling, unspecified Active Diagnosis [facility] MELVIN DIA [facility] Diagnosis: ICD-10-CM I26.99 Other pulmonary embolism without acute cor pulmonale Active Diagnosis [facility] Diagnosis: ICD-10-CM Z79.01 meterman (current) use of anticoagulants Active Diagnosis [facility] Medications Combined list of outpatient medications from Department of Defense and Veterans Affairs facilities.Medications provided include 1) outpatient medications from the last 15 months, and 2) patient-reported medications. Medication Details Route Status Patient Instructions Prescription Expires Prescription Number Last Dispense Date Ordering Provider Order Date Order Qty Source ACETAMINOPH EN 325MG TAB TAKE ONE TABLET BY MOUTH EVERY 6 HOURS NEEDED ORAL ACTIVE JOHNY ESPARZA 2024 [facility] [place] AMLODIPINE BESYLATE 5MG TAB TAKE ONE TABLET BY MOUTH ONCE DAILY FOR BLOOD PRESSURE /HEART, DO NOT TAKE WITH GRAPEFRU IT JUICE ORAL ACTIVE 05/06/2025 [id number] ROB ART 2023 90 [facility] AMLODIPINE BESYLATE 5MG TAB TAKE ONE TABLET BY MOUTH ONCE DAILY FOR BLOOD PRESSURE /HEART, DO NOT TAKE WITH GRAPEFRU IT JUICE ORAL DISCONT INUED BY PROVIDE R 02/11/2025 [id number] ROB ART 2023 90 [facility] APIXABAN 5MG TAB TAKE ONE-HALF TABLET BY MOUTH EVERY 12 HOURS FOR PREVENTI ON OF BLOOD CLOTS ORAL ACTIVE 05/06/2025 [id number] ROB ART 2024 90 [facility] APIXABAN 5MG TAB TAKE ONE-HALF TABLET BY MOUTH EVERY 12 HOURS FOR PREVENTI ON OF BLOOD CLOTS ORAL DISCONT INUED BY PROVIDE R 02/11/2025 [id number] Oscar'ROB MONSIVAIS 2023 90 [facility] APIXABAN 5MG TAB TAKE ONE TABLET BY MOUTH EVERY 12 HOURS FOR PREVENTI ON OF BLOOD CLOTS ORAL DISCONT INUED BY PROVIDE R 12/06/2024 [id number] ROB ART 2023 180 [facility] ASPIRIN 81MG TAB,EC TAKE ONE TABLET BY MOUTH ONCE DAILY ORAL ACTIVE ROB ART 2023 [facility] DOCUSATE NA 100MG CAP TAKE 1 CAPSULE BY MOUTH TWICE DAILY NEEDED ORAL ACTIVE JOHNY ESPARZA 2024 [facility] [place] LISINOPRIL 5MG TAB TAKE ONE TABLET BY MOUTH ONCE DAILY TO CONTROL BLOOD PRESSURE ORAL DISCONT INUED BY PROVIDE R 10/24/2024 [id number] ROB ART 2023 90 [facility] METOPROLOL TARTRATE 25MG TAB TAKE ONE-HALF TABLET BY MOUTH TWICE DAILY FOR BLOOD PRESSURE /HEART ORAL DISCONT INUED BY PROVIDE R 02/11/2025 [id number] ROB ART 2023 90 [facility] METOPROLOL TARTRATE 25MG TAB TAKE ONE-HALF TABLET BY MOUTH TWICE DAILY ORAL ACTIVE JOHNY ESPARZA 2024 [facility] TAMSULOSIN HCL 0.4MG CAP TAKE ONE CAPSULE BY MOUTH AT BEDTIME FOR ENLARGED PROSTATE ORAL DISCONT INUED BY PROVIDE R 02/11/2025 [id number] 4 ROB ART 2023 90 [facility] Results Combined list of recent chemistry, hematology and other laboratory results from Department of Defense and Veterans Affairs, ranging from 15 months to all on record, depending upon the facility. Order Name Results Value Reference Range Date Interpretation Specimen Comments Source LIPID PANEL, NON FASTING CHOLESTEROL [MASS/VOLUM E] IN SERUM OR PLASMA 240 mg/dL 05/05 H Specimen Type: SERUM No comment entered. Ordering Provider: NINI HALE Report Released Date/Time: May 05, 2024 02:20 PM Reporting Lab: [facility] [address] [facility] [address] Performing Lab: [facility] [address] [facility] [address] [facility] LIPID PANEL, NON FASTING TRIGLYCERID E [MASS/VOLUM E] IN SERUM OR PLASMA 113 mg/dL 0 - 150 05/05 Specimen Type: SERUM No comment entered. Ordering Provider: NINI HALE Report Released Date/Time: May 05, 2024 02:20 PM Reporting Lab: [facility] [place] [facility] [address] [facility] [address] Performing Lab: [facility] [place] [facility] [address] [facility] [address] [facility] [facility] LIPID PANEL, NON FASTING CHOLESTEROL IN LDL [MASS/VOLUM E] IN SERUM OR PLASMA BY CALCULATION 176 mg/dL 0 - 129 05/05 H Specimen Type: SERUM No comment entered. Ordering Provider: NINI HALE Report Released Date/Time: May 05, 2024 02:20 PM Reporting Lab: [facility] [place] [facility] [address] [facility] [address] Performing Lab: [facility] [place] [facility] [address] [facility] [address] [facility] [facility] LIPID PANEL, NON FASTING CHOLESTEROL .TOTAL/CHOL ESTEROL IN HDL [MASS RATIO] IN SERUM OR PLASMA 5.9 05/05 Specimen Type: SERUM No comment entered. Ordering Provider: NINI HALE Report Released Date/Time: May 05, 2024 02:20 PM Reporting Lab: [facility] [place] [facility] [address] [facility] [address] Performing Lab: [facility] [place] [facility] [address] [facility] [address] [facility] [place] [facility] LIPID PANEL, NON FASTING CHOLESTEROL IN HDL [MASS/VOLUM E] IN SERUM OR PLASMA 41 mg/dL 40 - 60 05/05 Specimen Type: SERUM No comment entered. Ordering Provider: NINI HALE Report Released Date/Time: May 05, 2024 02:20 PM Reporting Lab: [facility] [place] [facility] [address] [facility] [address] Performing Lab: [facility] [place] [facility] [address] [facility] [address] [facility] [place] [facility] BASIC METABOLIC PANEL (non-fast ing) UREA NITROGEN [MASS/VOLUM E] IN SERUM OR PLASMA 21 mg/dL 7 - 25 05/05 Specimen Type: SERUM No comment entered. Ordering Provider: NINI HALE Report Released Date/Time: May 05, 2024 02:20 PM Reporting Lab: [address] [address] Performing Lab: [address] [address] [facility] BASIC METABOLIC PANEL (non-fast ing) GLUCOSE [MASS/VOLUM E] IN SERUM OR PLASMA 95 mg/dL 65 - 100 05/05 Specimen Type: SERUM No comment entered. Ordering Provider: NINI HALE Report Released Date/Time: May 05, 2024 02:20 PM Reporting Lab: [address] [address] Performing Lab: [address] [address] [facility] BASIC METABOLIC PANEL (non-fast ing) SODIUM [MOLES/VOLU ME] IN SERUM OR PLASMA 139 mmol/L 135 - 145 05/05 Specimen Type: SERUM No comment entered. Ordering Provider: NINI HALE Report Released Date/Time: May 05, 2024 02:20 PM Reporting Lab: [address] [address] Performing Lab: [address] [address] [facility] BASIC METABOLIC PANEL (non-fast ing) POTASSIUM [MOLES/VOLU ME] IN SERUM OR PLASMA 4.0 mmol/L 3.5 - 5.0 05/05 Specimen Type: SERUM No comment entered. Ordering Provider: NINI HALE Report Released Date/Time: May 05, 2024 02:20 PM Reporting Lab: [address] [address] Performing Lab: [facility] [address] [facility] [address] [facility] BASIC METABOLIC PANEL (non-fast ing) CHLORIDE [MOLES/VOLU ME] IN SERUM OR PLASMA 107 mmol/L 100 - 110 05/05 Specimen Type: SERUM No comment entered. Ordering Provider: NINI HALE Report Released Date/Time: May 05, 2024 02:20 PM Reporting Lab: [facility] [address] [facility] [address] Performing Lab: [facility] [address] [facility] [address] [facility] BASIC METABOLIC PANEL (non-fast ing) CARBON DIOXIDE, TOTAL [MOLES/VOLU ME] IN SERUM OR PLASMA 22 meq/L 20 - 30 05/05 Specimen Type: SERUM No comment entered. Ordering Provider: NINI HALE Report Released Date/Time: May 05, 2024 02:20 PM Reporting Lab: [facility] [address] [facility] [address] Performing Lab: [facility] [address] [facility] [address] [facility] BASIC METABOLIC PANEL (non-fast ing) CREATININE [MASS/VOLUM E] IN SERUM OR PLASMA 1.73 mg/dL 0.50 - 1.40 05/05 H Specimen Type: SERUM No comment entered. Ordering Provider: NINI HALE Report Released Date/Time: May 05, 2024 02:20 PM Reporting Lab: [facility] [address] [facility] [address] Performing Lab: [facility] [address] [facility] [address] [facility] BASIC METABOLIC PANEL (non-fast ing) GLOMERULAR FILTRATION RATE/1.73 SQ M.PREDICTED [VOLUME RATE/AREA] IN SERUM, PLASMA OR BLOOD BY CREATININE- BASED FORMULA (CKD-EPI 2020) 38 mL/min 60 05/05 L Specimen Type: SERUM No comment entered. Ordering Provider: NINI HALE Report Released Date/Time: May 05, 2024 02:20 PM Reporting Lab: [facility] [place] [facility] [address] [facility] [address] Performing Lab: [facility] [place] [facility] [address] [facility] [address] [facility] [facility] CBC AND DIFF (AUTO) LEUKOCYTES [#/VOLUME] IN BLOOD BY AUTOMATED COUNT 7.88 10*3/u L 4.50 - 11.00 05/05 Specimen Type: BLOOD No comment entered. Ordering Provider: NINI HALE Report Released Date/Time: May 05, 2024 02:20 PM Reporting Lab: [facility] [place] [address] [address] Performing Lab: [facility] [place] [facility] [address] [facility] [address] [facility] [place] [facility] CBC AND DIFF (AUTO) ERYTHROCYTE S [#/VOLUME] IN BLOOD BY AUTOMATED COUNT 4.10 10*6/u L 4.23 - 5.66 05/05 L Specimen Type: BLOOD No comment entered. Ordering Provider: NINI HALE Report Released Date/Time: May 05, 2024 02:20 PM Reporting Lab: [facility] [place] [facility] [address] [facility] [address] Performing Lab: [facility] [place] [facility] [address] [facility] [address] [facility] [place] [facility] CBC AND DIFF (AUTO) HEMOGLOBIN [MASS/VOLUM E] IN BLOOD 12.7 g/dL 12.8 - 17 05/05 L Specimen Type: BLOOD No comment entered. Ordering Provider: NINI HALE Report Released Date/Time: May 05, 2024 02:20 PM Reporting Lab: [facility] [place] [address] [address] Performing Lab: [facility] [place] [facility] [address] [facility] [address] [facility] [place] [facility] CBC AND DIFF (AUTO) HEMATOCRIT [VOLUME FRACTION] OF BLOOD BY AUTOMATED COUNT 38.6 39.2 - 50.4 05/05 L Specimen Type: BLOOD No comment entered. Ordering Provider: NINI HALE Report Released Date/Time: May 05, 2024 02:20 PM Reporting Lab: [facility] [place] [facility] [address] [facility] [address] Performing Lab: [facility] [place] [place] [facility] [address] [facility] [address] [facility] [place] [facility] CBC AND DIFF (AUTO) MCV [ENTITIC VOLUME] BY AUTOMATED COUNT 94.1 fL 82 - 99 05/05 Specimen Type: BLOOD No comment entered. Ordering Provider: NINI HALE Report Released Date/Time: May 05, 2024 02:20 PM Reporting Lab: [facility] [place] [facility] [address] [facility] [address] Performing Lab: [facility] [place] [facility] [address] [facility] [address] [facility] CBC AND DIFF (AUTO) MCHC [MASS/VOLUM E] BY AUTOMATED COUNT 32.9 g/dL 30.8 - 35.1 05/05 Specimen Type: BLOOD No comment entered. Ordering Provider: NINI HALE Report Released Date/Time: May 05, 2024 02:20 PM Reporting Lab: [facility] [place] [facility] [address] [facility] [address] Performing Lab: [facility] [place] [address] [address] [facility] [place] [facility] CBC AND DIFF (AUTO) PLATELETS [#/VOLUME] IN BLOOD BY AUTOMATED COUNT 213 10*3/u L 140 - 360 05/05 Specimen Type: BLOOD No comment entered. Ordering Provider: NINI HALE Report Released Date/Time: May 05, 2024 02:20 PM Reporting Lab: [facility] [place] [facility] [address] [facility] [address] Performing Lab: [facility] [place] [facility] [address] [facility] [address] [facility] CBC AND DIFF (AUTO) ERYTHROCYTE DISTRIBUTIO N WIDTH [RATIO] BY AUTOMATED COUNT 13.6 12.0 - 16.0 05/05 Specimen Type: BLOOD No comment entered. Ordering Provider: NINI HALE Report Released Date/Time: May 05, 2024 02:20 PM Reporting Lab: [facility] [place] [facility] [address] [facility] [address] Performing Lab: [facility] [facility] [address] [facility] [address] [facility] [place] [facility] CBC AND DIFF (AUTO) MONOCYTES [#/VOLUME] IN BLOOD BY AUTOMATED COUNT 0.59 10*3/u L 0.30 - 1.10 05/05 Specimen Type: BLOOD No comment entered. Ordering Provider: NINI HALE Report Released Date/Time: May 05, 2024 02:20 PM Reporting Lab: [facility] [place] [facility] [address] [facility] [address] Performing Lab: [facility] [place] [facility] [address] [facility] [address] [facility] CBC AND DIFF (AUTO) MCH [ENTITIC MASS] BY AUTOMATED COUNT 31.0 pg 26.2 - 32.6 05/05 Specimen Type: BLOOD No comment entered. Ordering Provider: NINI HALE Report Released Date/Time: May 05, 2024 02:20 PM Reporting Lab: [facility] [place] [facility] [address] [facility] [address] Performing Lab: [facility] [place] [facility] [address] [facility] [address] [facility] CBC AND DIFF (AUTO) NEUTROPHILS /100 LEUKOCYTES IN BLOOD BY AUTOMATED COUNT 64.1 43.7 - 75.8 05/05 Specimen Type: BLOOD No comment entered. Ordering Provider: NINI HALE Report Released Date/Time: May 05, 2024 02:20 PM Reporting Lab: [facility] [place] [facility] [address] [facility] [address] Performing Lab: [facility] [place] [facility] [address] [facility] [address] [facility] [place] [facility] CBC AND DIFF (AUTO) LYMPHOCYTES /100 LEUKOCYTES IN BLOOD BY AUTOMATED COUNT 25.8 14.0 - 42.3 05/05 Specimen Type: BLOOD No comment entered. Ordering Provider: NINI HALE Report Released Date/Time: May 05, 2024 02:20 PM Reporting Lab: [facility] [place] [facility] [address] [facility] [address] Performing Lab: [facility] [place] [facility] [address] [facility] [address] [facility] [place] [facility] CBC AND DIFF (AUTO) MONOCYTES/1 00 LEUKOCYTES IN BLOOD BY AUTOMATED COUNT 7.5 5.1 - 13.7 05/05 Specimen Type: BLOOD No comment entered. Ordering Provider: NINI HALE Report Released Date/Time: May 05, 2024 02:20 PM Reporting Lab: [facility] [place] [facility] [address] [facility] [address] Performing Lab: [facility] [place] [facility] [address] [facility] [address] [facility] [place] [facility] CBC AND DIFF (AUTO) EOSINOPHILS /100 LEUKOCYTES IN BLOOD BY AUTOMATED COUNT 1.5 0.4 - 6.8 05/05 Specimen Type: BLOOD No comment entered. Ordering Provider: NINI HALE Report Released Date/Time: May 05, 2024 02:20 PM Reporting Lab: [facility] [place] [facility] [address] [facility] [address] Performing Lab: [facility] [place] [facility] [address] [facility] [address] [facility] [place] [facility] CBC AND DIFF (AUTO) BASOPHILS/1 00 LEUKOCYTES IN BLOOD BY AUTOMATED COUNT 0.8 0.1 - 2.0 05/05 Specimen Type: BLOOD No comment entered. Ordering Provider: NINI HALE Report Released Date/Time: May 05, 2024 02:20 PM Reporting Lab: [facility] [place] [facility] [address] [facility] [address] Performing Lab: [facility] [place] [facility] [address] [facility] [address] [facility] [place] CBC AND DIFF (AUTO) NEUTROPHILS [#/VOLUME] IN BLOOD BY AUTOMATED COUNT 5.06 10*3/u L 2.20 - 7.60 05/05 Specimen Type: BLOOD No comment entered. Ordering Provider: NINI HALE Report Released Date/Time: May 05, 2024 02:20 PM Reporting Lab: [facility] [place] [facility] [address] [facility] [address] Performing Lab: [facility] [place] [facility] [address] [facility] [address] [facility] [place] [facility] CBC AND DIFF (AUTO) LYMPHOCYTES [#/VOLUME] IN BLOOD BY AUTOMATED COUNT 2.03 10*3/u L 1.00 - 3.20 05/05 Specimen Type: BLOOD No comment entered. Ordering Provider: NINI HALE Report Released Date/Time: May 05, 2024 02:20 PM Reporting Lab: [facility] [place] [facility] [address] [facility] [address] Performing Lab: [facility] [place] [address] [address] [facility] CBC AND DIFF (AUTO) EOSINOPHILS [#/VOLUME] IN BLOOD BY AUTOMATED COUNT 0.12 10*3/u L 0.03 - 0.44 05/05 Specimen Type: BLOOD No comment entered. Ordering Provider: NINI HALE Report Released Date/Time: May 05, 2024 02:20 PM Reporting Lab: [facility] [place] [address] [facility] [address] Performing Lab: [facility] [address] [facility] [address] [facility] CBC AND DIFF (AUTO) BASOPHILS [#/VOLUME] IN BLOOD BY AUTOMATED COUNT 0.06 10*3/u L 0.01 - 0.13 05/05 Specimen Type: BLOOD No comment entered. Ordering Provider: NINI HALE Report Released Date/Time: May 05, 2024 02:20 PM Reporting Lab: [facility] [place] [facility] [address] [facility] [address] Performing Lab[facility] [place] [facility] [address] [facility] [address] [facility] CBC AND DIFF (AUTO) IMMATURE GRANULOCYTE S/100 LEUKOCYTES IN BLOOD BY AUTOMATED COUNT 0.3 0.0 - 0.7 05/05 Specimen Type: BLOOD No comment entered. Ordering Provider: NINI HALE Report Released Date/Time: May 05, 2024 02:20 PM Reporting Lab: [facility] [place] [facility] [address] [facility] [address] Performing Lab: [facility] [place] [facility] [address] [facility] [address] [facility] CBC AND DIFF (AUTO) IMMATURE GRANULOCYTE S [#/VOLUME] IN BLOOD 0.02 10*3/u L 0.00 - 0.06 05/05 Specimen Type: BLOOD No comment entered. Ordering Provider: NINI HALE Report Released Date/Time: May 05, 2024 02:20 PM Reporting Lab: [facility] [place] [address] [facility] [address] Performing Lab[facility] [place] [facility] [address] [facility] [address] [facility] CBC AND DIFF (AUTO) NRBC % 0.0 0.0 - 0.0 05/05 Specimen Type: BLOOD No comment entered. Ordering Provider: NINI HALE Report Released Date/Time: May 05, 2024 02:20 PM Reporting Lab: [facility] [place] [facility] [address] [facility] [address] Performing Lab: [facility] [address] [facility] [address] [facility] CBC AND DIFF (AUTO) NRBC, ABS 0.00 10*3/u L 0.00 - 0.00 05/05 Specimen Type: BLOOD No comment entered. Ordering Provider: NINI HALE Report Released Date/Time: May 05, 2024 02:20 PM Reporting Lab: [facility] [address] [address] Performing Lab: [facility] [address] [address] [facility] LIVER FUNCTION PROTEIN [MASS/VOLUM E] IN SERUM OR PLASMA 8.3 g/dL 6.0 - 8.3 05/05 Specimen Type: SERUM No comment entered. Ordering Provider: NINI HALE Report Released Date/Time: May 05, 2024 02:20 PM Reporting Lab: [facility] [address] [address] Performing Lab: [facility] [address] [facility] [address] [facility] LIVER FUNCTION ALBUMIN [MASS/VOLUM E] IN SERUM OR PLASMA 4.1 g/dL 3.5 - 5.0 05/05 Specimen Type: SERUM No comment entered. Ordering Provider: NINI HALE Report Released Date/Time: May 05, 2024 02:20 PM Reporting Lab: [facility] [address] [facility] [address] Performing Lab: [facility] [address] [address] [facility] [place] [facility] LIVER FUNCTION ALKALINE PHOSPHATASE [ENZYMATIC ACTIVITY/VO LUME] IN SERUM OR PLASMA 98 U/L 40 - 150 05/05 Specimen Type: SERUM No comment entered. Ordering Provider: NINI HALE Report Released Date/Time: May 05, 2024 02:20 PM Reporting Lab: [facility] [place] [facility] [address] [facility] [address] Performing Lab: [facility] [place] [facility] [address] [facility] [address] [facility] [place] [facility] LIVER FUNCTION ASPARTATE AMINOTRANSF ERASE [ENZYMATIC ACTIVITY/VO LUME] IN SERUM OR PLASMA 21 U/L 5 - 34 05/05 Specimen Type: SERUM No comment entered. Ordering Provider: NINI HALE Report Released Date/Time: May 05, 2024 02:20 PM Reporting Lab: [facility] [place] [address] [address] Performing Lab: [facility] [place] [address] [address] [facility] [place] [facility] LIVER FUNCTION ALANINE AMINOTRANSF ERASE [ENZYMATIC ACTIVITY/VO LUME] IN SERUM OR PLASMA 14 U/L 05/05 Specimen Type: SERUM No comment entered. Ordering Provider: NINI HALE Report Released Date/Time: May 05, 2024 02:20 PM Reporting Lab: [facility] [place] [address] [address] Performing Lab: [facility] [place] [address] [address] [facility] [place] [facility] LIVER FUNCTION BILIRUBIN.T OTAL [MASS/VOLUM E] IN SERUM OR PLASMA 0.5 mg/dL 0.2 - 1.2 05/05 Specimen Type: SERUM No comment entered. Ordering Provider: NINI HALE Report Released Date/Time: May 05, 2024 02:20 PM Reporting Lab: [facility] [place] [address] [place] [address] Performing Lab: [facility] [place] [facility] [address] [facility] [address] [facility] [place] [facility] CBC LEUKOCYTES [#/VOLUME] IN BLOOD BY AUTOMATED COUNT 7.88 10*3/u L 4.50 - 11.00 05/05 Specimen Type: BLOOD No comment entered. Ordering Provider: NINI HALE Report Released Date/Time: May 05, 2024 02:20 PM Reporting Lab: [facility] [place] [facility] [address] [facility] [address] Performing Lab: [facility] [place] [facility] [address] [facility] [address] [facility] [place] [facility] CBC ERYTHROCYTE S [#/VOLUME] IN BLOOD BY AUTOMATED COUNT 4.10 10*6/u L 4.23 - 5.66 05/05 L Specimen Type: BLOOD No comment entered. Ordering Provider: NINI HALE Report Released Date/Time: May 05, 2024 02:20 PM Reporting Lab: [facility] [place] [address] [address] Performing Lab: [facility] [place] [address] [address] [facility] [place] [facility] CBC HEMOGLOBIN [MASS/VOLUM E] IN BLOOD 12.7 g/dL 12.8 - 17 05/05 L Specimen Type: BLOOD No comment entered. Ordering Provider: NINI HALE Report Released Date/Time: May 05, 2024 02:20 PM Reporting Lab: [facility] [place] [address] [address] Performing Lab: [facility] [place] [address] [address] [facility] [place] [facility] CBC HEMATOCRIT [VOLUME FRACTION] OF BLOOD BY AUTOMATED COUNT 38.6 39.2 - 50.4 05/05 L Specimen Type: BLOOD No comment entered. Ordering Provider: NINI HALE Report Released Date/Time: May 05, 2024 02:20 PM Reporting Lab: [facility] [place] [facility] [address] [facility] [address] Performing Lab: [facility] [place] [facility] [address] [facility] [address] [facility] [place] [facility] CBC MCV [ENTITIC VOLUME] BY AUTOMATED COUNT 94.1 fL 82 - 99 05/05 Specimen Type: BLOOD No comment entered. Ordering Provider: NINI HALE Report Released Date/Time: May 05, 2024 02:20 PM Reporting Lab: [facility] [place] [facility] [address] [facility] [address] Performing Lab: [facility] [place] [facility] [address] [facility] [address] [facility] [place] [facility] CBC MCHC [MASS/VOLUM E] BY AUTOMATED COUNT 32.9 g/dL 30.8 - 35.1 05/05 Specimen Type: BLOOD No comment entered. Ordering Provider: NINI HALE Report Released Date/Time: May 05, 2024 02:20 PM Reporting Lab: [facility] [place] [facility] [address] [facility] [address] Performing Lab: [facility] [place] [facility] [address] [facility] [address] [facility] [place] [facility] CBC PLATELETS [#/VOLUME] IN BLOOD BY AUTOMATED COUNT 213 10*3/u L 140 - 360 05/05 Specimen Type: BLOOD No comment entered. Ordering Provider: NINI HALE Report Released Date/Time: May 05, 2024 02:20 PM Reporting Lab: [facility] [place] [facility] [address] [facility] [address] Performing Lab: [facility] [place] [facility] [address] [facility] [address] [facility] [place] [facility] CBC ERYTHROCYTE DISTRIBUTIO N WIDTH [RATIO] BY AUTOMATED COUNT 13.6 12.0 - 16.0 05/05 Specimen Type: BLOOD No comment entered. Ordering Provider: NINI HALE Report Released Date/Time: May 05, 2024 02:20 PM Reporting Lab: [facility] [place] [facility] [address] [facility] [address] Performing Lab: [facility] [place] [facility] [address] [facility] [address] [facility] [place] [facility] CBC MCH [ENTITIC MASS] BY AUTOMATED COUNT 31.0 pg 26.2 - 32.6 05/05 Specimen Type: BLOOD No comment entered. Ordering Provider: NINI HALE Report Released Date/Time: May 05, 2024 02:20 PM Reporting Lab: [facility] [place] [facility] [address] [facility] [address] Performing Lab: [facility] [place] [address] [address] [facility] [place] [facility] PT & INR (COUMADIN ) INR IN PLATELET POOR PLASMA BY COAGULATION ASSAY 1.2 05/05 Specimen Type: PLASMA No comment entered. Ordering Provider: NINI HALE Report Released Date/Time: May 05, 2024 02:20 PM Reporting Lab: [facility] [place] [facility] [address] [facility] [address] Performing Lab: [facility] [place] [facility] [address] [facility] [address] [facility] [place] [facility] PT & INR (COUMADIN ) PROTHROMBIN TIME (PT) 13.4 s 10.0 - 13.1 05/05 H Specimen Type: PLASMA No comment entered. Ordering Provider: NINI HALE Report Released Date/Time: May 05, 2024 02:20 PM Reporting Lab: [facility] [place] [facility] [address] [facility] [address] Performing Lab: [facility] [place] [address] [address] [facility] [place] [facility] Vital Signs Combined list of inpatient and outpatient Vital Signs from Department of Defense and Veterans Affairs, ranging from 12 months to all on record, depending upon the facility. Vital Sign Value Date Comments Source SYSTOLIC BLOOD PRESSURE 152 10/16/19 25 12:59:53 [facility] [place] [facility] DIASTOLIC BLOOD PRESSURE 78 025 12:59:53 [facility] [place] [facility] PULSE OXIMETRY 97 % 10/15/2024 12:59:53 [facility] [place] [facility] WEIGHT 200.2 10/15/2024 12:59:53 [facility] [place] [facility] BMI 29 kg/m2 10/15/2024 12:59:53 [facility] [place] [facility] PAIN 0 10/15/2024 12:59:53 [facility] [place] [facility] HEIGHT 70 10/15/2024 12:59:53 [facility] [place] [facility] TEMPERATURE 97.8 10/15/2024 12:59:53 [facility] [place] [facility] PULSE 100 10/15/2024 12:59:53 [facility] [place] [facility] RESPIRATION 16 10/15/2024 12:59:53 [facility] [place] [facility] SYSTOLIC BLOOD PRESSURE 138 09/23/19 25 15:11:43 [facility] [place] [facility] DIASTOLIC BLOOD PRESSURE 76 025 15:11:43 [facility] [place] [facility] PULSE OXIMETRY 94 09/22/2024 15:11:43 [facility] [place] [facility] WEIGHT 200.6 09/22/2024 15:11:43 [facility] [place] [facility] BMI 29 kg/m2 09/22/2024 15:11:43 [facility] [place] [facility] PAIN 0 09/22/2024 15:11:43 [facility] [place] [facility] HEIGHT 70 09/22/2024 15:11:43 [facility] [place] [facility] TEMPERATURE 97.7 09/22/2024 15:11:43 [facility] [place] [facility] PULSE 92 09/22/2024 15:11:43 [facility] [place] [facility] RESPIRATION 16 09/22/2024 15:11:43 [facility] [place] [facility] SYSTOLIC BLOOD PRESSURE 156 05/05/20 24 14:13:57 [facility] [place] [facility] DIASTOLIC BLOOD PRESSURE 78 024 14:13:57 [facility] [place] [facility] PULSE OXIMETRY 97 05/05/2024 14:13:57 [facility] [place] [facility] TEMPERATURE 98 05/05/2024 14:13:57 [facility] [place] [facility] PULSE 93 05/05/2024 14:13:57 [facility] [place] [facility] RESPIRATION 19 05/05/2024 14:13:57 [facility] [place] [facility] SYSTOLIC BLOOD PRESSURE 164 12/06/19 24 10:35:04 [facility] [place] [facility] DIASTOLIC BLOOD PRESSURE 102 024 10:35:04 [facility] [place] [facility] PULSE OXIMETRY 94 12/06/2023 10:35:04 [facility] [place] [facility] WEIGHT 207 12/06/2023 10:35:04 [facility] [place] [facility] BMI 30 kg/m2 12/06/2023 10:35:04 [facility] [place] [facility] PAIN 0 12/06/2023 10:35:04 [facility] [place] [facility] TEMPERATURE 97.2 12/06/2023 10:35:04 [facility] [place] [facility] PULSE 86 12/06/2023 10:35:04 [facility] [place] [facility] RESPIRATION 16 12/06/2023 10:35:04 [facility] [place] [facility] Encounters Combined list of: 1) Encounters from Department of Veterans Affairs facilities going backup to the last 18 months, not all VA inpatient encounters are included; 2) Encounters from the Department of Defense facilities going backup to 280 months. Location Location Details Encounter Type Encounter Number Reason For Visit Attending Provider ADM Date DC Date Status Disposition Source [facility] Encounter [id number] 07/10 [facility]counter [id number] [facility]counter [id number] 07/31 [facility]counter [id number] 08/01 [facility]counter [id number] 08/02 [facility] Encounter [id number] 08/02 [facility] OFFICE O/P NEW MOD 45 MIN [id number] Diagnos is: ICD-10- CM I26.99 Other pulmona ry embolis m without acute cor pulmona NINI Mota 08/08 [facility] MTMS BY PHARM EST 15 MIN [id number] Diagnos is: ICD-10- CM Z79.01 [facility] (curren t) use of anticoa OSWALDO Arshad 08/14 [facility] En[facility] [id number] 09/27 [facility] [id number] 09/27 [facility] Encounter [id number] 10/21 [facility] Encounter [id number] 10/23 [facility] Encounter [id number] 10/23 [facility] En[facility] [id number] 10/23 [facility] Encounter [id number] 10/31 [facility]counter [id number] 11/01 [facility] En[facility] [id number] 11/28 [facility] OFFICE O/P EST LOW 20 MIN [id number] Diagnos is: ICD-10- CM I26.99 Other pulmona ry embolis m without acute cor pulmona NINI Mota 12/05 [facility] Encounter [id number] 12/13 [facility] [id number] 12/17 [facility] [id number] [facility]counter [id number] 01/17 [facility] Encounter [id number] [facility] Out[facility] Encounter [id number] [facility] Encounter [id number] [facility] HC PRO PHONE CALL 5-10 MIN [id number] Diagnos is: ICD-10- CM Z71.9 Table Setter ing, unspeci ADIN Davis 01/21 [facility] En[facility] [id number] [facility] [place] ([id number]) QNHP OL DIG ASSMT&MGMT 5-10 [id number] Diagnos is: ICD-10- CM Z51.81 [facility] RAFFI Mansfield ISTINE F 02/11 [facility] ([id number]) [facility] Outpatient Encounter [id number] Diagnos is: ICD-10- CM Z86.711 Persona l history of pulmona ry embolis KAVITA Bradshaw 02/12 [facility] Encounter [id number] 03/07 [facility]counter [id number] [facility] Encounter [id number] 04/25 [facility] Encounter [id number] 04/28 [facility] Encounter [id number] 04/28 [facility] OFFICE O/P EST MOD 30 MIN [id number] Diagnos is: ICD-10- CM Z86.718 Persona l history of other venous thrombo sis and embolis NINI Leon 05/05 [facility] Encounter [id number] [facility] Out[facility] Encounter [id number] [facility] Encounter [id number] [facility] Encounter [id number] 06/02 [facility] Out[facility]counter [id number] 09/01 [facility] Encounter [id number] VALERIA JUNG 09/22 [facility] Encounter [id number] 09/23 [facility] Out[facility] Encounter [id number] 10/15 [facility] OFFICE O/P EST MOD 30 MIN [id number] Diagnos is: ICD-10- CM 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, without rupture , unspeci fied VALERIA JUNG 10/15 [facility] En[facility] [id number] 10/16 [facility] Encounter [id number] 10/17 [facility] Encounter [id number] 10/20 [facility] Encounter [id number] 10/31 [facility] Encounter [id number] 11/06 [facility] Social History Combined list of available smoking, tobacco, and other social history from Department of Defense and Veterans Affairs facilities. Social History Type Response Date Comment Sourc e Tobacco smoking status NHIS [facility] FORMER USER 08/03/2023 [facility] of [facility] Plan of Care List of future care activities from Department of Veterans Affairs facilities. Additional future care activities may be listed in the Assessment and Plan section. Date/Time Care Activity Care Activity Detail Facili ty 04/14/2025 AMBULATORY - MEDICINE AMBULATORY - MEDICI NE [facility]
--- OUTSIDE RECORDS SUMMARY | 2024-12-30 03:15 | XMS_ITS ---
Author Organization Silver Isaacs MD Address [address] [place], [place] [phone] Care Team Providers Care Hand Almond Blancher Name Role Phone Silver Isaacs Primary Care Provider Results Component Value Reference Range Notes Complete Blood Count Auto Di ff Reviewed date:12/30/2024 04:44:39 PM Interpretation: Performing Lab:[facility], [address] [place] [phone] Notes/Report: White Blood Count 7.0 4.8-10.8 X10*3/uL [...] NRBC Abs Auto 0.000 0.0-0.012 X10*3/uL Comprehensive [place]. Panel Fa st Reviewed date:12/30/2024 04:45:02 PM Interpretation: Performing Lab:[facility], [address] [place] [phone] Notes/Report: Sodium 140 135-145 mmol/L Potassium 4.0 [...] Panel Reviewed date:12/30/2024 04:37:19 PM Interpretation: Performing Lab:[facility], [address] [place] [phone] Notes/Report: Triglycerides 103 <150 mg/dL Desirable Triglyceride: [...] (Free>4and<10) Reviewed date:12/30/2024 04:36:44 PM Interpretation: Performing Lab:[facility], [address] [place] [phone] Notes/Report: PSA,Total (Free>4and<10) 1.20 0.00-4.00 ng/mL A [...] t Reviewed date:12/30/2024 04:42:47 PM Interpretation: Performing Lab:[address] [phone] Notes/Report: Urine, Clean Catch Color Urine Yellow Appearance Urine Clear PH 6.0 5.0-9.0 Glucose Urine UA Negative Negative mg/dL Urine Blood Small (1+) Negative Specific [place] - Urine 1.010 1.005-1.025 Urine Protein Trace [...] Isaacs MD [address] [place], [place] [phone] 12/30/2024 Silver Isaacs Blood tests for routine general physical examination Z00.00 and Essential hypertension I10 Assessments Encounter Date Diagnosis (ICD Code) Assessment Notes Treatment Notes Treatment Clinical Notes Section Notes 12/30/2024 Blood tests for routine general physical examination (ICD-10 - Z00.00) 12/30/2024 Essential hypertension (ICD-10 - I10) Plan Of Treatment Next Appt Details Provider Name:Silver hemphill, 07/06/2025 01:45:00 PM, [address] [place] [address], [address], [place], [place], [phone], Provider Name:Silver hemphill, 01/01/2026 08:00:00 AM, [address] [place] [address], Suite [facility], [place], [place], [phone], Provider Name:Silver hemphill, 01/08/2026 01:30:00 PM, [address] [place] [address], Suite [facility], [place], [place], [phone], Progress Notes * Carlin MILTONDOB:1935 ( 89 yo M)Acc No.[id number]:12/30/2024 Progress Note Patient: Carlin TORREZ Provider: Leigh Ann Isaacs MD :1935 A ge:89 Y S ex:Male Date:12/30/2024 Address:[address] [place], [place] [phone] Subjective: * Chief Complaints: * 1 . Yearly fasting labs. * Medical History: Objective: * Vitals: Assessment: * Assessment: 1. B lood tests for routine general physical examination - Z00.00 (Primary) 2 .?Essential hypertension - I10 Plan: * Treatment: 2. E ssential hypertension L AB: Complete Blood Count Auto Diff (Collection Date & Time - 12/30/2024 12:19 PM) L AB: Comprehensive [place]. Panel Fast (Collection Date & Time - [...] 0 12/30/2024 Generated for Barbara ryder/Cindy/Steveitting on: 01/06/2025 04:20 PM EDT
--- OUTSIDE RECORDS SUMMARY | 2025-01-04 23:59 | XMS_ITS | Continuity of Care Document ---
Author Organization [facility] Address [address] [address]- [facility] Name Relationship Address Phone YASH LIRA child Unknown Unavailable JYOTI UGARTE spouse Unknown Unavailable Care Team Providers Care New Car Get Ready Mechanic Name Role Phone Silver Isaacs MD Primary Care Physician [phone] Encounter [facility] ACCT R [id number] Date(s): 12/05/24 - 01/04/25 [facility] [address] [address]- Attending Physician: Deidra Zhou Admitting Physician: Deidra Zhou Referring Physician: Deidra Zhou Referring Physician: Theresa Rose Encounter Type: Triage Allergies, Adverse Reactions, Alerts No Known Medication Allergies Medications amLODIPine 5 mg oral tablet 5 mg, By Mouth, Daily, # 30 tablet, Refills 0, Tot. Refills 0, Maintenance, 01/29/24 7:03:00 AM EDT,Route to Pharmacy Electronically, [facility], Partial fill upon patient request if the prescription is for a schedule II opioid drug., 175, cm, 01/29/24 4:55:00 EDT, Height, 99.1, kg, 01/25/24 7:46:00 EDT, Dry Weight Start Date: 01/29/24 Stop Date: 02/28/24 Status: Ordered Quantity: 30.0 Unit: tablet Repeat number: 1 aspirin 81 mg oral delayed release tablet 81 mg, By Mouth, Daily, # 90 tablet, Refills 0, Tot. Refills 0, Maintenance, 01/29/24 7:03:00 AM EDT, Route to Pharmacy Electronically, [facility], Partial fill upon patient request if the prescription is for a schedule II opioid drug., 175, cm, 01/29/24 4:55:00 EDT, Height, 99.1, kg, 01/25/24 7:46:00 EDT, Dry Weight Start Date: 01/29/24 Stop Date: 04/28/24 Status: Ordered Quantity: 90.0 Unit: tablet Repeat number: 1 Colace sodium 100 mg oral capsule 100 mg, 1, capsule, By Mouth, 2 times a day, # 60 capsule, Refills 0, Tot. Refills 0, Maintenance, 01/29/24 7:04:00 AM EDT, Route to Pharmacy Electronically, [facility], Partial fill upon patient request if the prescription is for a schedule II opioid drug., 175, cm, 01/29/24 4:55:00 ED T, Height, 99.1, kg, 01/25/24 7:46:00 EDT, Dry Weight Start Date: 01/29/24 Status: Ordered Quantity: 60.0 Unit: capsule Repeat number: 1 Eliquis 2.5 mg oral tablet 1 tablet = 2.5 mg, By Mouth, 2 times a day, # 60 tablet, 0 Refills, Maintenance, 11/10/23 6:53:00 PMEDT, Tablet, Partial fill upon patient request if the prescription is for a schedule II opioid drug. Start Date: 11/10/23 Status: Ordered Quantity: 60.0 Unit: tablet Repeat number: 1 metoprolol 25 mg oral tablet 12.5 mg, By Mouth, 2 times a day, # 15 tablet, Refills 0, Tot. Refills 0, Maintenance, 01/29/24 7:04:00 AM EDT, Route to Pharmacy Electronically, [facility], Partial fill upon patient request if the prescription is for a schedule II opioid drug., 175, cm, 01/29/24 4:55:00 EDT, Height, 99.1, kg, 01/25/24 7:46:00 EDT, Dry Weight Start Date: 01/29/24 Stop Date: 02/28/24 Status: Ordered Quantity: 15.0 Unit: tablet Repeat number: 1 tamsulosin 0.4 mg oral capsule 0.4 mg, By Mouth, Daily, # 14 capsule, Refills 0, Tot. Refills 0, Maintenance, 01/29/24 7:04:00 AM EDT, Route to Pharmacy Electronically, [facility], Partial fill upon patient request ifthe prescription is for a schedule II opioid drug., 175, cm, 01/29/24 4:55:00 EDT, Height, 99.1, kg, 01/25/24 7:46:00 EDT, Dry Weight Start Date: 01/29/24 Stop Date: 02/12/24 Status: Ordered Quantity: 14.0 Unit: capsule Repeat number: 1 Problem List Condition Confirmation Course Effective Dates Status Health St atus Informant Ineffective health maintenance Confirmed Active Obese class I Confirmed Active Social History Social History Type Response Smoking Status Former smoker, quit more than 30 days ago; Other: quit 1989; entered on: 04/30/20 Sex Sex Representation Male (finding) Patient Care team information Care Team Personnel Name: Angeles Hernandez RN Position: S RN Member Role: Primary Care Nurse Name: Silver Isaacs MD Position: Reference Physician Member Role: PCP Address: [address] [place] [address] Silver Isaacs MD [address] Telecom: [phone] Name: Christen Luu RN Position: S RN Member Role: Primary Care Nurse Name: Indu Reno RN Position: S RN Member Role: Primary Care Nurse Name: Libby Wu RN Position: S RN Member Role: Primary Care Nurse Name: Gissell Briceño RN Position: S RN Member Role: Primary Care Nurse Name: Darrick Deras RN Position: S RN Member Role: Primary Care Nurse Name: Alex Nguyen MD Position: [facility] Renal MD Member Role: Lifetime Consulting Physician Address: [address] [place] [address] [address] [facility] [address] Telecom: Name: Joy Rodriguez RN Position: S RN Member Role: Primary Care Nurse Care Team Related Persons Name: YASH LIRA Name: JYOTI UGARTE Insurance Providers Guarantor name: [employer]HLOE Health Plan Information #: 1 Payer: [facility] MEDICARE ADV HMO Payer Identifier: KHLOE Member Number: [id number] Group Number: [id number] Subscriber Identifier: [id number] Relationship to Subscriber: self Coverage Type: Medicare HMO Coverage Verification Date: KHLOE Telecom: KHLOE Address:
--- OUTSIDE RECORDS SUMMARY | 2025-01-06 09:30 | XMS_ITS ---
Author Organization Silver Isaacs MD Address [address] [place], [place] [phone] Care Team Providers Care Cracking Machine Operator Name Role Phone Silver Isaacs Primary Care Provider [phone] Allergies No Known Allergies Results Component Value Reference Range Notes Urinalysis and Microscopic ( Not yet reviewed by provider) Interpretation: Performing Lab:[facility], [address] [place] [phone] Notes/Report: Color Urine Yellow Appearance Urine Clear PH 6.0 5.0-9.0 Glucose Urine UA Negative Negative mg/dL Urine Blood Small (1+) Negative Specific [place] - Urine 1.015 1.005-1.025 Urine Protein 30 (1+) Neg-Trace mg/dL Urine Ketones Negative Negative mg/dL Nitrite Urine Negative Negative Leukocyte Esterase Urine Negative Negative RBC Urine 3-5 0-2 /HPF WBC Urine 0-5 0-5 /HPF Squamous Epithelial Cell Urine 0-2 0-2 /HPF Bacteria Urine None Seen None Seen Hyaline Casts Urine 0-2 0-2 /LPF Occult Blood, Stool, Guaiac Reviewed date:01/06/2025 01:45:26 PM Interpretation:Negative Performing Lab: Notes/Report: Negative Occult Blood, Stool, Guaiac Neg REASON FOR VISIT annual visit Medications Medication [...] Date Provider Diagnosis Silver Isaacs MD [address] [place] [address] [address] [place], [place] [phone] 01/06/2025 Silver Isaacs Annual physical exam Z00.00 [...] screening guaiac negative Depression screening negative screen Pending Test Test Name Order Date Urinalysis and Microscopic 01/06/2025 Next Appt Details Follow Up: 6 Months, Reason: Provider Name:Silver Sosa Jessica hemphill, 07/06/2025 01:45:00 PM, [address] [place] [address], Suite [facility], [place], [place], [phone], Provider Name:Silver P Jessica leer, 01/01/2026 08:00:00 AM, [address] [place] [address], Suite [facility], [place], [place], [phone], Provider Name:Silver Sosa Jessica ier, 01/08/2026 01:30:00 PM, [address] [place] [address], [place] [address], [place], [place], [phone], Progress Notes * Carlin MILTONDOB:1935 ( 89 yo M)Acc No.[id number]:01/06/2025 Progress Notes Patient: Carlin TORREZ Provider: Leigh Ann Isaacs MD :1935 A ge:89 Y S ex:Male Date:01/06/2025 Address:[address] [place], [place] [phone] Subjective: * Chief Complaints: * 1 . Annual visit. * HPI: D epression Screening: PHQ-9 L [...] d enies. H eadache?denies. * Medical History: M edical History Verified. * Family History: F ather: 68 yrs. [...] Pets: none, 1 cat. * Medications: T aking Aspir-Low 81 MG Tablet Delayed Release 1 tablet Orally Once a day , Taking amLODIPine Besylate 5 MG Tablet 1 tablet Orally Once a day , Taking Eliquis 2.5 MG Tablet 1 tablet Orally Twice a day , Not-Taking/PRN Metoprolol Succinate ER 25 MG Tablet Extended Release 24 Hour 0.5 tablet Orally twice a day , Not-Taking/PRN Acetaminophen 325 MG Tablet 3 tablet as needed Orally every 6 hrs , Not- Taking/PRN Tamsulosin HCl 0.4 MG Capsule 1 capsule Orally Once a day , Medication List reviewed and reconciled with the patient * Allergies: N .K.D.A. Objective: * Vitals: H t: 68, Wt: [...] Blood Small (1+) A Negative - Specific [place] - Urine 1.010 1.005-1.025 - Urine Protein [...] Auto 0.000 0.0-0.012 - X10*3/uL L ab:Comprehensive [place]. Panel Fast (Order Date - 12/30/2024) (Collection [...] * Follow Up: 6 Months * * The named appointment provid er may or may not be the originator of this progress note, and it is not deemed complete until electronically signed by the appointment provider. Sign off status: Pending * Provider: Leigh Ann Isaacs MD Date: 0 01/06/2025 Generated for Barbara ryder/Cindy/Ari on: 01/06/2025 04:21 PM EDT History and Physical Notes * HPI (History [...]
[2025-01-06 15:35] LABS: Appearance Urine Clear; Glucose Urine UA Negative (Negative); PH 6.0 (5.0-9.0); Specific Gravity - Urine 1.015 (1.005-1.025); UMIC TRIGGER UA YES
--- OUTSIDE RECORDS SUMMARY | 2025-01-06 16:20 | XMS_ITS | Encounter Summary ---
Author Organization [facility] Address [address] [facility] [address] [place] [address] Phone Care Team Providers Care Herb Digger Name Role Phone Corey Sandoval MD Primary Care Provider + [phone] Reason for Referral * Outpatient Procedure - Closed Specialty Diagnoses / Procedures Referred By Contac t Referred To Contact Radiology Diagnoses History of pulmonary embolism Enlargement of abdominal aorta Procedures US Aorta Duplex Complete Silver Isaacs MD [address] [place] [address] Dr STEPHENS [address] [place] [address] Phone: tel: fax: Referral ID Status Reason Start Date Expiration Date Visits Re quested Visits Authorized [id number] Closed 01/01/2024 12/31/2024 1 1 * Outpatient Procedure - Closed Specialty Diagnoses / Procedures Referred By Contac t Referred To Contact Radiology Diagnoses History of DVT (deep vein thrombosis) History of pulmonary embolism Procedures US Lower Extremity Veins Duplex (Left) Silver Isaacs MD [address] [place] [address] Dr STEPHENS [address] [place] [address] Phone: tel: fax: Referral ID Status Reason Start Date Expiration Date Visits Re quested Visits Authorized [id number] Closed 01/01/2024 12/31/2024 1 1 Encounter Details Date Type Department Care Team (Late st Contact Info) Description 01/01/2024 Transcribe Orders Virtual Department [address] [place] [address] Silver Isaacs MD [address] [place] [address] [place] [address] History of DVT (deep vein thrombosis) (Primary [...] clinician's provided indication for this examination in [facility]: Outside Radiology Order; hx dvt TECHNIQUE: Lower [...] initiated on 01/15/2024 9:15 AM, Message ID [id number]. ATTESTATION: I, Dr. Bola Payton as teaching [...] was initiated on 01/15/2024 9:15 AM, MessageID [id number]. ATTESTATION: I, Dr. Bola Payton as teaching [...] embolism documented in this encounter Care Teams Herb Digger Relationship Specialty Start Date End Date Corey Sandoval MD [address] [place] [address] [email or web address] PCP - General Internal Medicine 06/08/20 documented as of this encounter Additional Source Comments The information contained in this document represents components of the legal health record. It is not the complete legal health record.[facility]
--- OUTSIDE RECORDS SUMMARY | 2025-01-06 16:21 | XMS_ITS | Encounter Summary ---
Author Organization [facility] Address [address] [facility] [address] [place] [address] Phone Care Team Providers Care Director [employer] Name Role Phone Manjinder Zaidi DO Primary Care Provider [phone] Dante Javier MD Primary Care Provider Corey Sandoval MD Primary Care Provider [phone] Encounter Details Date Type Department Care Team (Latest Contact Info) Description 03/03/2017 Ancillary [facility] [address] [place] [address] Trav Hernandez MD [address] [place] [address] [email or web address] Diagnosis unknown Social History Tobacco Use Types Packs/Day Years [...] documented as of this encounter Results * DEVICE CHECK: PPM IN-PERSON PROGRAMMING DUAL LEAD (03/16/2017 11:59 AM EDT) Narrative Trav Hernandez MD - 03/20/2017 7:55 AM EST CC: Device check -dual chamber pacemaker HPI: Carlin Milton is here for program evaluation of Medtronic single-chamber pacemaker. No device related complaints. Indication for device: SSS. Please see full scanned interrogation details associated with today's date. Device Check: Device Type: Pacemaker Nitriles Lab Technician:Medtronic Battery: 9 yrs Mode: MVPR LRL/URL: 60/130 BPM AP: 6.3% TANK TRUCK LOADER: <1% AMS: None AF burden:None Lead impedances, sensing, and thresholds testing all within normal parameters. There were no alerts or ventricular high rate episodes. Assessment: SSS Plan: Programming evaluation completed today with iterative adjustment of the implantable device to test the function and select optimal permanent program values with analysis, review and report. Normal device function with no device related complaints. Was reviewed with my supervising physician. Patient to follow-up for continued monitoring. Ajit Mcdonnell NP us Trav Hernandez MD [facility] ORDER RICHIE Final Result documented in this encounter Visit Diagnoses Diagnosis Diagnosis unknown Sick sinus syndrome- Primary Sinoatrial node dysfunction Diagnosis unknown documented in this encounter Additional Health Concerns Infection Onset Date Last Indicated Resolved Time CoV-Risk Comment:Neg covid 07/10/2023 07/10/2023 07/11/2023 7:[address] documented as of this encounter Care Teams Director [employer] Relationship Specialty Start Date End Date Manjinder Zaidi DO [email or web address] PCP - General 03/01/17 10/31/17 Dante Javier MD [address] [place] [address], [address] [place] [address] [email or web address] PCP - General Internal Medicine 11/01/17 06/07/20 Corey Sandoval MD [address] [place] [address] [email or web address] PCP - General Internal Medicine 06/08/20 documented as of this encounter Additional Source Comments The information contained in this document represents components of the legal health record. It is not the complete legal health record.[facility]
--- OUTSIDE RECORDS SUMMARY | 2025-01-06 16:21 | XMS_ITS | Encounter Summary ---
Author Organization [facility] Address [address] [facility] [address] [place] [address] Phone Care Team Providers Care Independent Living Specialist Name Role Phone Dante Javier MD Primary Care Provider [phone] Corey Sandoval MD Primary Care Provider [phone] Encounter Details Date Type Department Care Team (Late st Contact Info) Description 03/18/2018 Ancillary Orders Non-Invasive Cardiology [address] [place] [address] Trav Hernandez MD [address] [place] [address] [email or web address] Sick sinus syndrome Social History Tobacco Use Types Packs/Day Years Used Date Smoking Tobacco: Former Cigarettes Q uit: 1989 Smokeless Tobacco: Never Alcohol Use Standard Drinks/Week Comments No 0 (1 standard drink = 0.6 oz pur e alcohol) Sex and Gender Information Value Date Recorded Sex Assigned at Male 04/02/2018 3:07 AM EST Legal Sex Male 10:14 PM EDT Gender Identity Male 04/02/2018 3:07 AM EST Sexual Orientation Straight 04/02/2018 3: 07 AM EST documented as of this encounter Plan of Treatment Not on file documented as of this encounter Results * DEVICE CHECK: PPM REMOTE INTERROGATION WITH CLOTH HAND REVIEW (03/19/2018 8:15 AM EST) Narrative Trav Hernandez MD - 03/20/2018 12:34 PM EST Reason for appointment: Remote pacemaker interrogation HPI: Routine 3 month remote pacemaker interrogation. No device related complaints. Indication for device: SSS. Examination: Device type: Pacemaker Monotype Machinist: Medtronic Mode: AAIR-DDDR LRL/UPL: 60/130 bpm Mode switches: 0 High V rates: 0 Thresholds, impedances, and sensing stable. Atrial pacin.2% Ventricular pacin% Battery: 8.5 yrs Additional comments: Device functioning appropriately. Normal device function. Patient to follow-up for continued monitoring every 3 months. Report prepared by Alcon Zarco RN us Trav Hernandez MD [facility] ORDER RICHIE Final Result documented in this encounter Visit Diagnoses Diagnosis Sick sinus syndrome Sinoatrial node dysfunction Sick sinus syndrome Sinoatrial node dysfunction documented in this encounter Additional Health Concerns Infection Onset Date Last Indicated Resolved Time CoV-Risk Comment:Neg covid 07/10/2023 07/10/2023 07/11/2023 7:[address] documented as of this encounter Care Teams Independent Living Specialist Relationship Specialty Start Date End Date Dante Javier MD [address] [place] [address], [address] [place] [address] [email or web address] PCP - General Internal Medicine 11/01/17 06/07/20 Corey Sandoval MD [address] [place] [address] [email or web address] PCP - General Internal Medicine 06/08/20 documented as of this encounter Additional Source Comments The information contained in this document represents components of the legal health record. It is not the complete legal health record.[facility]
--- OUTSIDE RECORDS SUMMARY | 2025-01-06 16:21 | XMS_ITS | Patient Health Record ---
[facility] Address [address] [place] [address] Care Team Providers Care Kindergarten Teacher Name Role Phone Name Yo BAIG Primary Care Provider Franklyn Renner Unavailable [phone] Reason For Referral No Information Problems Problem Type SNOMED Code ICD Code Onset Dates Problem Status W/U Status Risk Notes Problem Pain in Limb (729.5) Active confirmed Plan Of Treatment Pending Test Test Name Order Date [id number] Destruction, 05-2706/15/2011 [id number] Destruction, 05-2712/13/2011 Insurance Providers Payer Name Payer Address Payer Phone Subscriber Number Group Number Insured Name Patient Relationship to Insured Coverage Start Date Coverage End Date [facility] [address] [facility] [place] [id number] Carlin Milton Self - patient is the insured Medical (General) History Medical History History ICD Code chicken pox Surgical History Surgery Date(Month/Year) finger surgery
--- OUTSIDE RECORDS SUMMARY | 2025-01-06 16:21 | XMS_ITS | Encounter Summary ---
Author Organization [facility] Address [address] [facility] [address] [place] [address] Phone Care Team Providers Care Curb Setter Helper Name Role Phone Manjinder Zaidi DO Primary Care Provider [phone] Dante Javier MD Primary Care Provider Corey Sandoval MD Primary Care Provider [phone] Encounter Details Date Type Department Care Team (Late st Contact Info) Description 06/28/2017 Ancillary Orders Non-Invasive Cardiology [address] [place] [address] Trav Hernandez MD [address] [place] [address] [email or web address] Sick sinus syndrome Social History Tobacco Use [...] this encounter Results * DEVICE CHECK: PPM IN-HOME INTERROGATION (06/28/2017 4:13 PM EST) Narrative Trav Hernandez MD - 06/29/2017 10:49 AM EST Reason for appointment: Remote pacemaker interrogation HPI: Routine 3 month remote pacemaker interrogation. No device related complaints. Indication for device SSS. Examination: Device type: pacemaker Hydraulic And Plumbing Installer: MDAdam Thresholds, impedances, and sensing stable. Mode switches: Brief SVT 1 second and one brief 20 sec mode switch High V rates: 0 MVPR 60/130 Atrial pacing 6.7 % of the time. Ventricular pacing <0.1 % of the time. Battery: Longevity is stable 9 yrs . Normal device function. Patient to follow-up for continued monitoring. us Trav Hernandez MD [facility] CARDIAC SERVICES ORDER RICHIE Final Result documented in this encounter Visit Diagnoses Diagnosis Sick sinus syndrome Sinoatrial node dysfunction Sick sinus syndrome Sinoatrial node dysfunction documented in this encounter Additional Health Concerns Infection Onset Date Last Indicated Resolved Time CoV-Risk Comment:Neg covid 07/10/2023 07/10/2023 07/11/2023 7:[address] documented as of this encounter Care Teams Curb Setter Helper Relationship Specialty Start Date End Date Manjinder Zaidi DO PCP - General 03/01/17 10/31/17 Dante Javier MD [address] [place] [address] [address] [place] [address] PCP - General Internal Medicine 11/01/17 06/07/20 Corey Sandoval MD [address] [place] [address] [email or web address] PCP - General Internal Medicine 06/08/20 documented as of this encounter Additional Source Comments The information contained in this document represents components of the legal health record. It is not the complete legal health record.[facility]
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
--- OUTSIDE RECORDS SUMMARY | 2025-01-06 16:21 | XMS_ITS | Encounter Summary ---
Author Organization [facility] Address [address] [facility] [address] [place] [address] Phone Care Team Providers Care Digital Pre Press Operator Name Role Phone Corey Sandoval MD Primary Care Provider [phone] Encounter Details Date Type Department Care Team (Late st Contact Info) Description 07/10/2023 Procedure Pass [facility] [address] [place] [address] Social History Tobacco Use Types Packs/Day Years [...] with a working camera? Not on file Sex and Gender Information Value Date Recorded Sex Assigned at Male 04/02/2018 3:07 AM EST Legal Sex Male 10:14 PM EDT Gender Identity Male 04/02/2018 3:07 AM EST Sexual Orientation Straight 04/02/2018 3: 07 AM EST documented as of this encounter Functional Status * Calculated C-SSRS Risk Score (Lifetime/Recent) Answer Date of Assessment Author No Risk Indicated 07/10/2023 9:47 AM EST Ajit Means RN * [place] Suicide Severity Rating Scale (Screener/Recent Self-Report) Question Answer Date of Assessment Author 1. Wish to be (Past 1 Month) No 024 9:47 AM Ajit Vilchis, AGNIESZKA 2. Non-Specific Active Suici lila Thoughts (Past 1 Month) No 07/10/2023 9:47 AM Han Vilchis, RN 6. Suicidal Behavior (Lifetime) No 9:47 AM Ajit Vilchis, RN documented as of this encounter Plan of Treatment Not on file documented as of this encounter Visit Diagnoses Not on filedocumented in this encounter Additional Health Concerns Infection Onset Date Last Indicated Resolved Time CoV-Risk Comment:Neg covid 07/10/2023 07/10/2023 07/11/2023 7:[address] documented as of this encounter Care Teams Digital Pre Press Operator Relationship Specialty Start Date End Date Corey Sandoval MD [address] [place] [address] [email or web address] PCP - General Internal Medicine 06/08/20 documented as of this encounter Additional Source Comments The information contained in this document represents components of the legal health record. It is not the complete legal health record.[facility]
--- OUTSIDE RECORDS SUMMARY | 2025-01-06 16:21 | XMS_ITS | Encounter Summary ---
Author Organization [facility] Address [address] [facility] [address] [place] [address] Phone Care Team Providers Care Compilation Clerk Name Role Phone Corey Sandoval MD Primary Care Provider [phone] Encounter Details Date Type Department Care Team (Late st Contact Info) Description 07/10/2023 Procedure Pass [facility], Ct Scan - [address] [address] Social History Tobacco Use Types Packs/Day Years [...] 9:47 AM EST Ajit Means RN * [place] Suicide Severity Rating Scale (Screener/Recent Self-Report) Question Answer Date of Assessment Author 1. Wish to be (Past 1 Month) No 024 9:47 AM Ajit Vilchis RN 2. Non-Specific Active Suici lila Thoughts (Past 1 Month) No 07/10/2023 9:47 AM Han Vilchis RN 6. Suicidal Behavior (Lifetime) No 9:47 AM Ajit Vilchis RN documented as of this encounter Plan of Treatment Not on file documented as of this encounter Visit Diagnoses Not on filedocumented in this encounter Additional Health Concerns Infection Onset Date Last Indicated Resolved Time CoV-Risk Comment:Neg covid 07/10/2023 07/10/2023 07/11/2023 7:[address] documented as of this encounter Care Teams Compilation Clerk Relationship Specialty Start Date End Date Corey Sandoval MD [address] [address] [email or web address] PCP - General Internal Medicine 06/08/20 documented as of this encounter Additional Source Comments The information contained in this document represents components of the legal health record. It is not the complete legal health record.[facility]
--- OUTSIDE RECORDS SUMMARY | 2025-01-06 16:21 | XMS_ITS | Clinical Summary ---
Author Organization [facility] Address [address] [address] Phone Care Team Providers Care Owner Spa Director Name Role Phone Silver Isaacs MD Primary [...] patient's age to complete this topic Insurance [facility] Care Teams Owner Spa Director Relationship Specialty Start Date End Date Silver Isaacs MD [address] [place] [address] [id number] [place], [place] PCP - General Internal Medicine 04/03/24
--- OUTSIDE RECORDS SUMMARY | 2025-01-06 16:21 | XMS_ITS | Clinical Summary ---
Author Organization [facility] Address [address] [place] [address] Phone Care Team Providers Care Recoil Spring Winder Name Role Phone Corey Sandoval MD Primary Care Provider Allergies No known active allergies Medications apixaban (ELIQUIS) 5 mg (74 tabs) tablets in DVT/PE starter pack Take by mouth as directed. Take 10mg by mouth twice daily for 7 days followed by 5mg twice daily. 74 tablet 07/12/2023 Active lisinopril (PRINIVIL,ZESTR IL) 5 MG tablet Take 1 tablet (5 mg total) by mouth daily. 60 tablet 10/22/2023 Active Active Problems Problem Noted Date Diagnosed Date Hypertension 07/11/2023 Assessment & Plan (07/11/2023 4:49 PM EST): Patient has no documented history of hypertension but presented with elevated blood pressures in the ED and systolic blood pressures of 160-170 here on the floor. I trialed him on 2.5 mg of amlodipine this morning but blood pressure remains elevated so we will give another 2.5 mg of amlodipine now and start him on 5 mg daily of amlodipine. 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 Acute deep vein thrombosis ( DVT) of popliteal vein of left lower extremity 07/11/2023 Assessment & Plan (07/11/2023 4:51 PM EST): Lower extremity duplex revealed a left popliteal, peroneal and gastrocnemius DVT, which is likely provoked from the fall a week ago and contributing to the development of his saddle pulm embolus. Anticoagulation as noted above. Pulmonary embolism 07/10/2023 Overview (07/11/2023): -Patient denies any change in activity, no recent travel, about a week prior to admission he did sustain a fall hitting his left knee. He woke up this morning with shortness of breath and presented to the ED where he was found to have elevated D-dimer of greater than 7650. CTA chest showed saddle pulmonary embolism but no right heart strain, admitted for anticoagulation and hemodynamic monitoring. Assessment & Plan (07/11/2023 4:46 PM EST): Started on therapeutic dose Lovenox last night, no bleeding complications thus far. Lower extremity duplex shows a left lower extremity DVT extending from the left popliteal vein down to the gastrocnemius vein and up to the peroneal vein. However he does not have any left lower extremity edema. Of note he did have a fall landing on his left side including his left leg, also likely suffered trauma, endovascular damage provoking a DVT which subsequently led to his PE. Preliminary echo reading discussed with Dr. Morgan, who did not any significant RV strain on echo. Therefore do not think that there is any indication for more aggressive treatment of his saddle embolus such as tPA or IR guided/surgical thrombolysis/thrombectomy. Will continue to monitor for his hemodynamic stability for the next 24 hours and if stable can consider switching to a DOAC. Assessment & Plan (07/10/2023 6:01 PM EST): -Patient denies any change in activity, no recent travel, about a week prior to admission he did sustain a fall hitting his left knee. He woke up this morning with shortness of breath and presented to the ED where he was found to have elevated D-dimer of greater than 7650. CTA chest showed saddle pulmonary embolism but no right heart strain -ED discussed case with ICU but as there was no right heart strain and BNP was not elevated patient will be monitored on telemetry -ED also discussed case with IR for possible thrombectomy but this is on hold for now unless echocardiogram shows right heart strain -Follow-up TTE to better rule out right heart strain -Follow-up bilateral lower extremity Doppler to evaluate for any further clot burden -He has been started on therapeutic Lovenox for now -Continuous pulse ox for close monitoring SVT (supraventricular tachycardia) 09/02/2021 Assessment & Plan (02/07/2022 1:21 PM EDT): He did have one brief episode of SVT, asymptomatic. No medication changes. Assessment & Plan (09/02/2021 1:47 PM EDT): His interrogation showed he does have brief episodes of SVT that are asymptomatic. Discussed that as long as he is not, we do not do anything else for this NSVT (nonsustained ventricular tachycardia) 08/13 Assessment & Plan (02/07/2022 1:21 PM EDT): No episodes of VT on device interrogation. Assessment & Plan (09/02/2021 1:47 PM EDT): He does have brief episodes of nonsustained VT lasting for up to 3 seconds that are asymptomatic. We will plan on doing an echocardiogram to rule out structural heart disease. He denies any syncope and says he does not have palpitations. As long as he is asymptomatic, we can hold off stopping a beta-dylan for now Pacemaker 09/02/2021 Assessment & Plan (09/02/2021 1:48 PM EDT): Complete interrogation iterative program form. All parameters noted to be within normal limits. Will continue with home monitoring every 3 months Community acquired pneumonia of right lower lobe of lung 04/02/2018 Assessment & Plan (04/02/2018 5:42 PM EST): Leukocytosis with right lower lobe infiltrate. He is tolerating current antibiotics. Continue ceftriaxone and IV azithromycin. Lower extremity edema 04/02/2018 Acute hypoxemic respiratory failure 04/02/2018 Assessment & Plan (04/02/2018 5:41 PM EST): Due to pneumonia, he remains on 2 L nasal cannula but is otherwise stable. Wean as tolerated Sick sinus syndrome 03/15/2017 Assessment & Plan (02/07/2022 1:21 PM EDT): Programming device evaluation with iterative adjustment of the implantable device to test the function of the device and select optimal permanent programmed values with analysis review and report. Assessment & Plan (04/02/2018 4:49 AM EST): He is s/p pacemaker placement 2 years ago. Presence of cardiac pacemaker 03/15/2017 Resolved Problems Problem Noted Date Diagnosed Date Resolved Date Severe sepsis 04/02/2018 04/15/2018 Assessment & Plan (04/02/2018 5:40 PM EST): Improving, tachycardia has resolved. He is afebrile but still has mild leukocytosis and mildly elevated lactate. It seems most likely that his sepsis is secondary to a community-acquired pneumonia. Continue to monitor Immunizations Immunization Administration Dates Next Due Pneumococcal conjugate PCV13 04/03/2018(Deferred : Patient Refused) Family History Medical History Relation Comments Appendicitis Father Cancer Mother Colon cancer Neg Hx Prostate cancer Neg Hx Relation Status Comments Father of ruptured appendix complications Mother Social History Tobacco Use Types Packs/Day Years [...] Orientation Straight 04/02/2018 3: 07 AM EST Last Filed Vital Signs Vital Sign Reading Time Taken Comments Blood Pressure 162/99 10/22/2023 11:34 AM EDT Pulse 73 10/22/2023 11:34 AM EDT Temperature 36.4 C (97.5 F) 10/22/2023 11:34 AM EDT Respiratory Rate 20 10/22/2023 11:34 AM EDT Oxygen Saturation 98% 10/22/2023 11:34 AM EDT Inhaled Oxygen Concentration - - Weight 90.7 kg (200 lb) 10/22/2023 9:35 AM EDT Height 177.8 cm (5' 10 ) 07/10/2023 9:44 AM EST Body Mass Index 28.7 07/10/2023 9:44 AM EST Plan of Treatment Health Maintenance Due Date Last Done Comments Adult Td,Tdap Booster 1935 DEPRESSION SCREENING 1947 PNEUMOCOCCAL VACCINES (50+ years) (1 of 1 - PCV) 01/21/1986 ZOSTER VACCINES (1 of 2) 01/21/1986 RSV VACCINE (1 - 1-dose 75+ series) 01/21/2011 COVID-19 VACCINE ( - season) 2024 CREATININE LEVEL 10/21/2024 10/22/2023, , 07/11/2023, Additional history exists POTASSIUM LEVEL 10/21/2024 10/22/2023, 02/01/2024, 07/11/2023, Additional history exists HEPATITIS A VACCINES Aged Out No long er eligible based on patient's age to complete this topic HIB VACCINES Aged Out No longer eligi ble based on patient's age to complete this topic MENINGOCOCCAL VACCINES (ACWY) Aged Out No longer eligible based on patient's age to complete this topic MENINGOCOCCAL VACCINES (B) Aged Out N o longer eligible based on patient's age to complete this topic Medical Devices Implanted Type Area Campaign Assistant Device Identifier Shelf Expiration Date Model / Serial / Lot Medtronic Pacemaker Procedures Procedure Name Priority Date/Time Associated Diagnosis Comments BASIC METABOLIC PANEL STAT 10/22/2023 10:05 AM EDT from Last 3 Months or Most Recently Relevant to Health Maintenance Results * (ABNORMAL) Basic metabolic panel (10/22/2023 10:05 AM EDT) SODIUM 141 133 - 146 mmol/L [facility] CHLORIDE 106 96 - 108 mmol/L [facility] POTASSIUM 4.0 3.3 - 5.1 mmol/L [facility] CO2 23 21 - 35 mmol/L [facility] BUN 17 6 - 19 mg/dL [facility] CREATININE 1.40 0.5 - 1.5 mg/dL [facility] GLUCOSE 109(H) 70 - 99 mg/dL [facility] CALCIUM 9.1 8.4 - 10.3 mg/dL [facility] EGFR 49(L) >59 mL/min/1.7 3m2 [facility] Comment:Estimated glomerular filtration rate calculated using the CKD-EPI refit equation. ANION GAP 16 10 - 20 mmol/L [facility] Blood 10/22/2023 10:0 5 AM EDT 10/22/2023 10:08 AM EDT us Ronni Machuca STRINGER MACHINE TENDER LAB BLOOD ORDERABLES Carol alvarado Result [facility] [address] [place] [address] from Last 3 Months or Most Recently Relevant to Health Maintenance Insurance [employer] RE[employer]ACEMENT [employer] REPLACEMENT [employer] H[employer]PLACEMENT [employer] REPLACEMENT [employer] H[employer] REPLACEMENT [employer] HMO REPLACEMENT [facility] MEDICARE HMO REPLACEMENT [address] [place] [address] MEDICARE HMO REPLACEMENT [employer] H[employer] REPLACEMENT Advance Directives For more information, please contact: [phone] (9AM - 5PM [facility], Sunday-Sunday) Documents on File Type Date Recorded Patient Residential Counselor Expl anation Healthcare Proxy 07/13/2023 2:00 PM * Full Code (Latest Code Status on File) Date Activated Date Inactivated Comments 07/10/2023 5:46 PM Question Answer Comments Code Status Confirmed With: Patient * Full Code (Confirmed) Date Activated Date Inactivated Comments 04/02/2018 8:47 AM 04/03/2018 3:58 PM Question Answer Comments Code Status Confirmed With: PatientFamily Care Teams Recoil Spring Winder Relationship Specialty Start Date End Date Corey Sandoval MD [address] [place] [phone] [email or web address] PCP - General Internal Medicine 06/08/20 Additional Source Comments The information contained in this document represents components of the legal health record. It is not the complete legal health record.[facility]
--- OUTSIDE RECORDS SUMMARY | 2025-01-06 16:21 | XMS_ITS | Encounter Summary ---
Author Organization [facility] Address [address] [place] [phone] Phone Care Team Providers Care School Traffic Guard Name Role Phone Manjinder Zaidi DO Primary Care Provider [phone] Dante Javier MD Primary Care Provider Corey Sandoval MD Primary Care Provider [phone] Encounter Details Date Type Department Care Team (Late st Contact Info) Description 06/28/2017 Ancillary [facility] [address] [place] [address] Trav Hernandez MD [address] [place] [address] [email or web address] Social History Tobacco Use Types Packs/Day Years [...] documented as of this encounter Care Teams School Traffic Guard Relationship Specialty Start Date End Date Manjinder Zaidi DO [email or web address] PCP - General 03/01/17 10/31/17 Dante Javier MD [address] [place] [address], [address] [place] [address] [email or web address] PCP - General Internal Medicine 11/01/17 06/07/20 Corey Sandoval MD [address] [place] [phone] [email or web address] PCP - General Internal Medicine 06/08/20 documented as of this encounter Additional Source Comments The information contained in this document represents components of the legal health record. It is not the complete legal health record.[facility]
--- OUTSIDE RECORDS SUMMARY | 2025-01-06 16:21 | XMS_ITS | Encounter Summary ---
Author Organization [facility] Address [address] [facility] [address] [place] [phone] Phone Care Team Providers Care Beam Machine Operator Name Role Phone Corey Sandoval MD Primary Care Provider [phone] Encounter Details Date Type Department Care Team ([facility] Contact Info) Description 09/02/2021 Procedure Pass Echo Lab [address] [place] [address] Social History Tobacco Use Types Packs/Day Years [...] documented as of this encounter Care Teams Beam Machine Operator Relationship Specialty Start Date End Date Corey Sandoval MD [address] [place] [phone] [email or web address] PCP - General Internal Medicine 06/08/20 documented as of this encounter Additional Source Comments The information contained in this document represents components of the legal health record. It is not the complete legal health record.[facility]
--- OUTSIDE RECORDS SUMMARY | 2025-01-06 16:21 | XMS_ITS | Encounter Summary ---
Author Organization [facility] Address [address] [facility] [address] [place] [address] Phone Care Team Providers Care Procurement Cost Coordinator Name Role Phone Dante Javier MD Primary Care Provider [phone] Corey Sandoval MD Primary Care Provider [phone] Encounter Details Date Type Department Care Team (Late st Contact Info) Description 03/18/2018 Ancillary [facility] [address] [place] [address] Trav Hernandez MD [address] [place] [address] [email or web address] Social History Tobacco Use Types Packs/Day Years [...] documented as of this encounter Care Teams Procurement Cost Coordinator Relationship Specialty Start Date End Date Dante Javier MD [address] [place] [address], [address] [place] [address] [email or web address] PCP - General Internal Medicine 11/01/17 06/07/20 Corey Sandoval MD [address] [place] [phone] [email or web address] PCP - General Internal Medicine 06/08/20 documented as of this encounter Additional Source Comments The information contained in this document represents components of the legal health record. It is not the complete legal health record.[facility]
== END 2025-01-06 15:25 | disposition home or self-care (01) ==
LOC: HO.LNP 15:24
PROVIDERS: Visit Provider Internal Medicine
DX: R31.9 Hematuria, unspecified (principal)
CPT/HCPCS: 81001

== ENCOUNTER 2025-03-24 09:52 | Outpatient (REF) | payer MEDICARE, SELFPAY ==
[2025-03-24 14:01] LABS: MANUAL DIFF FLAG NO
[2025-03-24 14:11] LABS: Hematocrit 41.4 % (42.0-52.0); Hemoglobin 13.2 g/dl (14.0-18.0); Imm Gran Abs Auto 0.02 X10*3/uL (0.00-0.03); Imm Gran Pct Auto 0.3 % (0.0-0.4); Lymphocytes Absolute Auto 2.2 X10*3/uL (1.2-4.9); Mean Corpuscular HGB Conc 31.9 g/dl (31.0-36.0); Mean Corpuscular Hemoglobin 29.9 pg (27.0-33.0); Mean Corpuscular Volume 93.9 fL (80.0-98.0); NRBC Abs Auto 0.000 X10*3/uL (0.0-0.012); NRBC Pct Auto 0.0 /100WBC (0.0-0.2); Platelet Count 236 X10*3/uL (160-400); Red Blood Count 4.41 X10*6/uL (4.60-5.80); White Blood Count 7.9 X10*3/uL (4.8-10.8)
[2025-03-24 14:20] LABS: Appearance Urine Clear; Glucose Urine UA Negative (Negative); PH 6.0 (5.0-9.0); Specific Gravity - Urine 1.015 (1.005-1.025); UMIC TRIGGER UACC YES
[2025-03-24 14:44] LABS: Alanine Aminotransferase 13 U/L (0-40); Albumin Level 4.5 g/dL (3.5-5.0); Alkaline Phosphatase 124 U/L (39-117); Anion Gap 13 (12-20); Aspartate Amino Transferase 32 U/L (5-37); Blood Urea Nitrogen 23 mg/dL (9-16); Calcium 9.6 mg/dL (8.4-10.2); Carbon Dioxide 23 mmol/L (22-29); Chloride 110 mmol/L (96-108); Cholesterol 225 mg/dL (<200); Estimated Glomerular Filt Rate 34; HDL Cholesterol 40 mg/dL (>40); Potassium 3.8 mmol/L (3.3-5.1); Sodium 142 mmol/L (135-145); Total Protein 8.8 g/dL (6.5-8.0); Triglycerides 99 mg/dL (<150)
[2025-03-24 14:50] LABS: Microalbum/Creatinine Ratio Ur 52.0 ug/mg cr (<30)
[2025-03-24 15:21] LABS: Folate 7.8 ng/mL (> or = 4.0); Vitamin B12 288 pg/mL (200-900)
== END 2025-03-24 09:53 | disposition home or self-care (01) ==
LOC: HO.WFDLDS 09:52
PROVIDERS: PCP Internal Medicine; Visit Provider Family Medicine
DX: Z00.00 Encounter for general adult medical examination without abnormal findings (principal); I49.5 Sick sinus syndrome; I10 Essential (primary) hypertension; E78.5 Hyperlipidemia, unspecified; M21.372 Foot drop, left foot; E55.9 Vitamin D deficiency, unspecified; E53.8 Deficiency of other specified B group vitamins; Z12.5 Encounter for screening for malignant neoplasm of prostate; Z86.718 Personal history of other venous thrombosis and embolism; Z86.79 Personal history of other diseases of the circulatory system; Z95.0 Presence of cardiac pacemaker
CPT/HCPCS: 36415; 80053; 80061; 81001; 81003; 82043; 82306; 82570; 82607; 82746; 84153; 84443; 85025; 96127; 96160; 99202

== ENCOUNTER 2025-03-24 09:52 | Outpatient (AMB) | payer MEDICARE, SELFPAY ==
--- OUTSIDE RECORDS SUMMARY | 2024-07-11 06:30 | XMS_ITS ---
Author Organization Silver Isaacs MD Address [address] [place] [phone] Care Team Providers Care Drum Builder Name Role Phone Silver Isaacs Primary Care Provider Allergies No Known Allergies REASON FOR VISIT [...] Risk Notes Problem Disorder of lumbar disc (747500168) Lumbar disc disease (M51.9) Active confirmed Vital Signs Blood pressure systolic 138 mm Hg 07/11/19 25 Blood pressure diastolic 76 mm Hg 025 Height 68 in 07/11/2024 Weight 201 lbs 07/11/2024 BMI 30.56 kg/m2 07/11/2024 Encounters Encounter Location Date Provider Diagnosis Silver Isaacs MD [address] [place] [phone] 07/11/2024 Silver Isaacs Essential hypertension I10 ; [...] Details Provider Name:Silver hemphill, 07/06/2025 01:45:00 PM, [address] [place] [address], [address] [place] [address], [phone], Provider Name:Silver hemphill, 01/01/2026 08:00:00 AM, [address] [place] [address], Suite [facility], [place], [place], [phone], Provider Name:Silver hemphill, 01/08/2026 01:30:00 PM, [address] [place] [address], Suite [facility], [place], [place], [phone], Progress Notes * SHANELCarlinDOB:1935 ( 89 yo M)Acc No.[id number]:07/11/2024 Progress Notes Patient: Carlin TORREZ Provider: Leigh Ann Isaacs MD :1935 A ge:89 Y S ex:Male Date:07/11/2024 Address: [facility] [place] Subjective: * Chief Complaints: * 6 weekAccompanied [...] Wt-k.17. * P ast Orders: L ab:Comprehensive [place]. Panel Fast (Order Date - 06/19/2024) (Collection [...] MD Date: 0 07/11/2024 Generated for Barbara ryder/Cindy/Crsitinasmitting on: 05/24/2024 11:09 AM EST History and Physical Notes * [...]
--- OUTSIDE RECORDS SUMMARY | 2024-07-28 05:35 | XMS_ITS ---
Author Organization Silver Isaacs MD Address [address] [place] [address] [place] [phone] Care Team Providers Care Soils Engineer Name Role Phone Silver Isaacs Primary Care Provider [phone] REASON FOR VISIT HCC Risk Codes Encounters Encounter Location Date Provider Diagnosis Silver Isaacs MD [address] [place] [address] [place] [phone] 07/28/2024 Silver Isaacs Plan Of Treatment Next Appt Details Provider Name:Silver hemphill, 07/06/2025 01:45:00 PM, [address] [place] [address], Suite [facility], [place], [place], [phone], Provider Name:Silver hemphill, 01/01/2026 08:00:00 AM, [address] [place] [address], [address] [place] [address], [phone], Provider Name:Silver hemphill, 01/08/2026 01:30:00 PM, [address] [place] [address], [place] [address], [place], [place], [phone], Progress Notes * Carlin MILTONDOB:1935 ( 89 yo M)Acc No.[id number]:07/28/2024 Patient: Carlin TORREZ :1935 A ge:89 Y S ex:Male Address: [place], [address] * true * Date: Generated for Printi ng/Faxing/eTransmitting on: 05/24/2024 11:08 AM EST
--- OUTSIDE RECORDS SUMMARY | 2024-08-25 04:41 | XMS_ITS ---
Author Organization Silver Isaacs MD Address [address] [place] [address] [place] [phone] Care Team Providers Care Orthodontic Lab Technician Name Role Phone Silver Isaacs Primary Care Provider REASON FOR VISIT refills Medications Medication SIG (Take, Route, Frequency, Duration) Notes Start Date End Date Status amLODIPine Besylate 5 MG 1 tablet Orally Once a day for 90 days Active Eliquis 2.5 MG 1 tablet Orally Twic e a day for 90 days Active Encounters Encounter Location Date Provider Diagnosis Silver Isaacs MD [address] [place] [address] [place] [phone] 08/25/2024 Silver Isaacs Essential hypertension I10 and [...] Details Provider Name:Silver hemphill, 07/06/2025 01:45:00 PM, [address] [place] [address], [address], [phone], Provider Name:Silver hemphill, 01/01/2026 08:00:00 AM, [address] [place] [address], [address], [phone], Provider Name:Silver hemphill, 01/08/2026 01:30:00 PM, [address], [address], [place], [place], [phone], Progress Notes * Carlin MILTONDOB:1935 ( 89 yo M)Acc No.[id number]:08/25/2024 Patient: Carlin TORREZ :1935 A ge:89 Y S ex:Male Address:[address] [place] [address] [place], [address] * Refills Refill amLODIPine Besylate Tablet, 5 MG, Orally, 90 Tablet, 1 tablet, Once a day, 90 days, Refills=3 Refill Eliquis Tablet, 2.5 MG, Orally, 180, 1 tablet, Twice a day, 90 days, Refills=3 * true * Date: Generated for Barbara ryder/Cindy/Ari on: 05/24/2024 11:11 AM EST
--- OUTSIDE RECORDS SUMMARY | 2024-08-29 05:57 | XMS_ITS ---
Author Organization Silver Isaacs MD Address [address] [place] [address] [place] [phone] Care Team Providers Care Signs And Displays Sales Representative Name Role Phone Silver Isaacs Primary Care Provider REASON FOR VISIT med issue Medications Medication SIG (Take, Route, Frequency, Duration) Notes Start Date End Date Status amLODIPine Besylate 5 MG 1 tablet Orally Once a day for 90 days Active Eliquis 2.5 MG 1 tablet Orally Twic e a day for 90 days Active Encounters Encounter Location Date Provider Diagnosis Silver Isaacs MD [address] [place] [address] [place] [phone] 08/29/2024 Silver Isaacs Essential hypertension I10 and History of pulmonary embolism Z86.711 Assessments Encounter Date Diagnosis (ICD Code) Assessment Notes Treatment Notes Treatment Clinical Notes Section Notes 08/29/2024 Essential hypertension (ICD-10 - I10) 08/29/2024 History of pulmonary embolism (ICD-10 - Z86.711) Plan Of Treatment Medication Medication Name Sig Start Date Stop Date Notes amLODIPine Besylate 5 MG 1 tablet Orally Once a day for 90 days Eliquis 2.5 MG 1 tablet Orally Twic e a day for 90 days Next Appt Details Provider Name:Silver hemphill, 07/06/2025 01:45:00 PM, [address] [place] [address], [address], [phone], Provider Name:Silver hemphill, 01/01/2026 08:00:00 AM, [address] [place] [address], [address], [phone], Provider Name:Silver hemphill, 01/08/2026 01:30:00 PM, [address] [facility] [address], [address], [place], [place], [phone], Progress Notes * Carlin MILTONDOB:1935 ( 89 yo M)Acc No.[id number]:08/29/2024 Patient: Carlin TORREZ :1935 A ge:89 Y S ex:Male Address:[address] [place] [address] [place], [address] * Refills Refill amLODIPine Besylate Tablet, 5 MG, Orally, 90, 1 tablet, Once a day, 90 days, Refills=3 Refill Eliquis Tablet, 2.5 MG, Orally, 180, 1 tablet, Twice a day, 90 days, Refills=3 * true * Date: Generated for Barbara ryder/Cindy/Ari on: 05/24/2024 11:12 AM EST
--- OUTSIDE RECORDS SUMMARY | 2024-09-08 06:09 | XMS_ITS ---
Author Organization Silver Isaacs MD Address [address] [facility] [address] [place] [phone] Care Team Providers Care Instructional Paraprofessional Name Role Phone Silver Isaacs Primary Care Provider REASON FOR VISIT refund Encounters Encounter Location Date Provider Diagnosis Silver Isaacs MD [address] [place] [address] [place] [phone] 09/08/2024 Silver Isaacs Plan Of Treatment Next Appt Details Provider Name:Silver hemphill, 07/06/2025 01:45:00 PM, [address] [place] [address], Suite [facility], [place], [place], [phone], Provider Name:Silver hemphill, 01/01/2026 08:00:00 AM, [address] [place] [address], Suite [facility], [place], [place], [phone], Provider Name:Silver hemphill, 01/08/2026 01:30:00 PM, [address] [place] [address], [place] [address], [place], [place], [phone], Progress Notes * Carlin MILTONDOB:1935 ( 89 yo M)Acc No.[id number]:09/08/2024 Patient: Carlin TORREZ :1935 A ge:89 Y S ex:Male [facility] [place], [address] * * Date:
--- OUTSIDE RECORDS SUMMARY | 2024-09-19 11:30 | XMS_ITS ---
Author Organization Silver Isaacs MD Address [address] [place] [phone] Care Team Providers Care Shove Up Name Role Phone Silver Isaacs Primary Care Provider [phone] Allergies No Known Allergies REASON FOR VISIT 4 month, QA asking to add CKD code ? Encounters Encounter Location Date Provider Diagnosis Silver Isaacs MD [address] [place] [address] [place] [phone] 09/19/2024 Silver Isaacs Plan Of Treatment Next Appt Details Provider Name:Silver hemphill, 07/06/2025 01:45:00 PM, [address] [place] [address], Suite [facility], [place], [place], [phone], Provider Name:Silver hemphill, 01/01/2026 08:00:00 AM, [address] [place] [address], [address], [phone], Provider Name:Silver hemphill, 01/08/2026 01:30:00 PM, [address] [place] [address], [address], [phone], Progress Notes * YOAN CarlinDOB:1935 ( 89 yo M)Acc No.[id number]:09/19/2024 Progress Notes Patient: Carlin TORREZ Provider: Leigh Ann Isaacs MD :1935 A ge:89 Y S ex:Male Date:09/19/2024 Address:[address] [place] [address] [phone] Subjective: * Chief Complaints: * 1 . 4 month. 2. QA asking to add CKD code ?. * ROS: G eneral/Constitutional: Denies C hills. D enies F atigue. D enies F ever. D enies H eadache. E NT: Denies S ore throat. R espiratory: Denies C ough. D enies S hortness of breath at rest. D enies S hortness of breath with exertion. G astrointestinal: Denies D iarrhea. D enies N ausea. * Medical History: M edical History Verified. * Allergies: N .K.D.A. Objective: * Vitals: Assessment: Plan: * Treatment: * * The named appointment provid er may or may not be the originator of this progress note, and it is not deemed complete until electronically signed by the appointment provider. Sign off status: Pending * Provider: Leigh Ann Isaacs MD Date: 0 09/19/2024 Generated for Barbara ryder/Cindy/Ari on: 1 05/24/2024 11:12 AM EST
--- OUTSIDE RECORDS SUMMARY | 2024-12-30 02:15 | XMS_ITS ---
Author Organization Silver Isaacs MD Address [address] [place], [place] [phone] Care Team Providers Care Curve Saw Operator Name Role Phone Silver Isaacs Primary Care Provider Results Component Value Reference Range Notes Complete Blood Count Auto Di ff Reviewed date:12/30/2024 04:44:39 PM Interpretation: Performing Lab:[facility], [address] [place] [phone] Notes/Report: White Blood Count 7.0 4.8-10.8 X10*3/uL [...] NRBC Abs Auto 0.000 0.0-0.012 X10*3/uL Comprehensive [place]. Panel Fa st Reviewed date:12/30/2024 04:45:02 PM Interpretation: Performing Lab:[facility], [address] [place] [phone] Notes/Report: Sodium 140 135-145 mmol/L Potassium 4.0 [...] Panel Reviewed date:12/30/2024 04:37:19 PM Interpretation: Performing Lab:[facility], [address] [place] [phone] Notes/Report: Triglycerides 103 <150 mg/dL Desirable Triglyceride: [...] (Free>4and<10) Reviewed date:12/30/2024 04:36:44 PM Interpretation: Performing Lab:[facility], [address] [place] [phone] Notes/Report: PSA,Total (Free>4and<10) 1.20 0.00-4.00 ng/mL A [...] t Reviewed date:12/30/2024 04:42:47 PM Interpretation: Performing Lab:[address] [phone] Notes/Report: Urine, Clean Catch Color Urine Yellow Appearance Urine Clear PH 6.0 5.0-9.0 Glucose Urine UA Negative Negative mg/dL Urine Blood Small (1+) Negative Specific [place] - Urine 1.010 1.005-1.025 Urine Protein Trace [...] Isaacs MD [address] [place], [place] [phone] 12/30/2024 Silver Isaacs Blood tests for routine general physical examination Z00.00 and Essential hypertension I10 Assessments Encounter Date Diagnosis (ICD Code) Assessment Notes Treatment Notes Treatment Clinical Notes Section Notes 12/30/2024 Blood tests for routine general physical examination (ICD-10 - Z00.00) 12/30/2024 Essential hypertension (ICD-10 - I10) Plan Of Treatment Next Appt Details Provider Name:Silver hemphill, 07/06/2025 01:45:00 PM, [address] [place] [address], [address], [place], [place], [phone], Provider Name:Silver hemphill, 01/01/2026 08:00:00 AM, [address] [place] [address], Suite [facility], [place], [place], [phone], Provider Name:Silver hemphill, 01/08/2026 01:30:00 PM, [address] [place] [address], Suite [facility], [place], [place], [phone], Progress Notes * Carlin MILTONDOB:1935 ( 89 yo M)Acc No.[id number]:12/30/2024 Progress Note Patient: Carlin TORREZ Provider: Leigh Ann Isaacs MD :1935 A ge:89 Y S ex:Male Date:12/30/2024 Address:[address] [place], [place] [phone] Subjective: * Chief Complaints: * 1 . Yearly fasting labs. * Medical History: Objective: * Vitals: Assessment: * Assessment: 1. B lood tests for routine general physical examination - Z00.00 (Primary) 2 .?Essential hypertension - I10 Plan: * Treatment: 2. E ssential hypertension L AB: Complete Blood Count Auto Diff (Collection Date & Time - 12/30/2024 12:19 PM) L AB: Comprehensive [place]. Panel Fast (Collection Date & Time - [...] 12/30/2024 Generated for Barbara ryder/Cindy/Steveitting on: 1 05/24/2024 11:08 AM EST
--- OUTSIDE RECORDS SUMMARY | 2025-01-06 08:30 | XMS_ITS ---
Author Organization Silver Isaacs MD Address [address] [place], [place] [phone] Care Team Providers Care Plate Developer Name Role Phone Silver Isaacs Primary Care Provider Allergies No Known Allergies Results Component Value Reference Range Notes Occult Blood, Stool, Guaiac Reviewed date:01/06/2025 01:45:26 PM Interpretation:Negative Performing Lab: Notes/Report: Negative Occult Blood, Stool, Guaiac Neg Urinalysis and Microscopic Reviewed date:01/08/2025 02:43:17 PM Interpretation: Performing Lab:[facility], [address] [place] [phone] Notes/Report: Color Urine Yellow Appearance Urine Clear PH 6.0 5.0-9.0 Glucose Urine UA Negative Negative mg/dL Urine Blood Small (1+) Negative Specific [place] - Urine 1.015 1.005-1.025 Urine Protein 30 [...] Location Date Provider Diagnosis Silver Isaacs MD [address] [place] [address] [place] [phone] 01/06/2025 Silver Isaacs Annual physical exam Z00.00 [...] 01:45:00 PM, [address], [address], [place], [place], [phone], Provider Name:Silver Ian Jessica ier, 01/01/2026 08:00:00 AM, [address] [place] [address] Drive, Suite [facility], [place], [place], [phone], Provider Name:Silverkinjal Lopez ier, 01/08/2026 01:30:00 PM, [address] [place] [address], Suite [facility], [place], [place], [phone], Progress Notes * SHANEL MontyjhonatanDOB:1935 ( 89 yo M)Acc No.[id number]:01/06/2025 Progress Notes Patient: Carlin TORREZ Provider: Leigh Ann Isaacs MD :1935 A ge:89 Y S ex:Male Date:01/06/2025 Address:[address] [place], [place] [phone] Subjective: * Chief Complaints: * A nnual [...] Blood Small (1+) A Negative - Specific [place] - Urine 1.010 1.005-1.025 - Urine Protein [...] Auto 0.000 0.0-0.012 - X10*3/uL L ab:Comprehensive [place]. Panel Fast (Order Date - 12/30/2024) (Collection [...] 01/06/2025 Generated for Barbara ryder/Cindy/Cristinasmitting on: 1 05/24/2024 11:08 AM EST History and Physical Notes * [...]
--- OUTSIDE RECORDS SUMMARY | 2025-02-19 05:12 | XMS_ITS ---
Author Organization [facility] MD Address [address] [facility] [address] [place] [phone] Care Team Providers Care Diet Tech Name Role Phone Silver Isaacs Primary Care Provider REASON FOR VISIT Jast a FYI/ bleeding rectal Encounters Encounter Location Date Provider Diagnosis Silver Isaacs MD [address] [place] [address] [place] [phone] 02/19/2025 Silver Isaacs Plan Of Treatment Next Appt Details Provider Name:Silver hemphill, 07/06/2025 01:45:00 PM, [address] [place] [address], Suite [facility], [place], [place], [phone], Provider Name:Silver hemphill, 01/01/2026 08:00:00 AM, [address] [place] [address], Suite [facility], [place], [place], [phone], Provider Name:Silver hemphill, 01/08/2026 01:30:00 PM, [address] [place] [address], Suite [facility], [place], [place], [phone], Progress Notes * Carlin MILTONDOB:1935 ( 89 yo M)Acc No.[id number]:02/19/2025 Patient: Carlin TORREZ :1935 A ge:89 Y S ex:Male Address:[address] [place] [address] [place], [address] * true * Date: Generated for Printi ng/Faxing/eTransmitting on: 05/24/2024 11:08 AM EST
--- OUTSIDE RECORDS SUMMARY | 2025-02-24 03:01 | XMS_ITS ---
Author Organization Silver Isaacs MD Address [address] [facility] [address] [place] [phone] Care Team Providers Care Shrimp Packer Name Role Phone Silver Isaacs Primary Care Provider [phone] REASON FOR VISIT ER visit rec'd Encounters Encounter Location Date Provider Diagnosis Silver Isaacs MD [address] [place] [address] [address] [place] [phone] 02/24/2025 Silver Isaacs Plan Of Treatment Next Appt Details Provider Name:Silver hemphill, 07/06/2025 01:45:00 PM, [address] [place] [address], Suite [facility], [place], [place], [phone], Provider Name:Silver hemphill, 01/01/2026 08:00:00 AM, [address] [place] [address], [place] [address], [place], [place], [phone], Provider Name:Silver hemphill, 01/08/2026 01:30:00 PM, [address] [place] [address], [place] [address], [place], [place], [phone], Progress Notes * Carlin MILTONDOB:1935 ( 89 yo M)Acc No.[id number]:02/24/2025 Patient: Carlin TORREZ :1935 A ge:89 Y S ex:Male [facility] [place], [address] * true * Date: Generated for Printi ng/Faxing/eTransmitting on: 05/24/2024 11:11 AM EST
--- NOTE | 2025-03-24 10:10 | MHC.PC.OV ---
Vital Signs 03/24/25 10:17 Height 5 ft 7 in Weight 204 lb BMI 31.9 BP 138/80 Blood Pressure Location Lt brachial Position Sitting Respiration 16 Pulse 83 Pulse Source Pulse Oximeter Temp 97.9 F Temp Source Oral Pulse Oximetry (%) 97 Oxygen Delivery Method Room Air Intake Visit Reasons: est care/PCP is retiring Intake Note: patient is scheduled to establish care with pcp Radiocommunications Technician Required: No Allergies No Known Allergies Allergy (Verified 03/24/25 10:11) Medication List - Last Reconciled 03/24/25 by Antonio Davis MD amlodipine 5 mg PO DAILY apixaban (Eliquis) 2.5 mg PO BID Tobacco use date assessed: 03/24/25 Fall risk assessment: 1 Fall in past year Last assessed Fall Risk: 03/24/25 Dental Screening Dental Screen Date: 03/24/25 Did you have a dental visit in the last 12 months?: Yes Did you have a dental problem in the last 6 months where you did not have access to dental care?: No Was dental information given to patient?: No HPI est care/PCP is retiring HPI Details New Patient? ?? Prior PCP:?Dr Benz Last office visit/CPE:?CPE in December Acute issue(s):? Drop foot at L foot ?? PMHx:? HLD, HTN, Sick Sinus syndrome w/ pacer On Eliquis Dr Dr [facility] at [place]. Hx or Aortic Aneurysm. Hx DVT On Eliquis SurgHx:?Aortic Sugery for Aneurysm Dr [facility]. SocHx: Quit Cigs in 1989. 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 Mother No problems noted. Social History Housing: House Patient Tobacco Use Status: Former Tobacco user e-Cigarette/Vaping Use: Never Used Second Hand Smoke Exposure: No service: Yes Current occupational status: retired Current occupational exposures/hazards: No Cognitive needs: No Hearing needs: No Vision needs: No Questionnaire PHQ-9 Over the last 2 weeks, how often have you been bothered by any of the following problems? 1. Little interest or pleasure in doing things: not at all 2. Feeling down, depressed, or hopeless: not at all 3. Trouble falling or staying asleep, or sleeping too much: not at all 4. Feeling tired or having little energy: not at all 5. Poor appetite or overeating: not at all 6. Feeling bad about yourself - or that you are a failure or have let yourself or your family down: not at all 7. Trouble concentrating on things, such as reading the newspaper or watching television: not at all 8. Moving or speaking so slowly that other people could have noticed. Or the opposite - being so fidgety or restless that you have been moving around a lot more than usual: not at all 9. Thoughts that you would be better off or of hurting yourself in some way: not at all Total score: 0 Depression Screening Interpretation: Negative Depression Screening Done: Yes 93275 - PHQ-9 Billing: Yes Source: Developed by Drs. Julio Benjamin, Fiorella Haney, Vitor Duque and colleagues, with an educational yani from [facility]. Thrive Questionnaire Date Thrive assessed: 03/24/25 I am a: Patient What is your living situation today?: I have a steady place to live Within the past 12 months, did the food you bought not last and you didn't have the money to get more?: Never true Within the past 12 months, did you worry whether your food would run out before you got money to buy more?: Never true Do you have trouble paying for medicines?: No Do you have trouble getting transportation to medical appointments?: No Do you have trouble paying your heating and electricity bill?: No Do you have trouble taking care of your child, family member or friend?: No Do you have trouble with day-to-day activities such as bathing, preparing meals, shopping, managing finances, etc.?: No Are you currently unemployed and looking for a job?: No Are you interested in more education?: No Please select the resources that you would like help with: None Currently or been in a relationship where the following occur: No concerns reported THRIVE Score: 0 AUDIT C Alcohol Use Questionnaire (AUDIT-C) 1. How often do you have a drink containing alcohol?: Never 3. How often do you have six or more drinks on one occasion?: Never Total Score: 0 Score Reviewed/Action Taken: Yes WOLFGANG-7 AMB Questionnaire WOLFGANG-7 Date WOLFGANG - 7 assessed: 03/24/25 Feeling nervous, anxious, or on edge: 0 = Not at all Not being able to stop or control worryin = Not at all Worrying too much about different things: 0 = Not at all Trouble relaxin = Not at all Being so restless that it is hard to sit still: 0 = Not at all Becoming easily annoyed or irritable: 0 = Not at all Feeling afraid as if something awful might happen: 0 = Not at all Total WOLFGANG-7 score (0-4 normal; 5-9 mild; 10-14 moderate; 15-21 severe): 0 Source: Developed by Drs. Julio Benjamin, Fiorella Haney, Vitor Duque and colleagues, with an educational yani from [facility]. WOLFGANG-7 Assessment Billing WOLFGANG-7 Assessment Tool: WOLFGANG-7 Assessment 03776 ACT Questionnaire In the past 4 weeks, how much of the time did your asthma keep you from getting as much done at work, school or at home?: None of the time During the past 4 weeks, how often have you had shortness of breath?: Not at all During the past 4 weeks, how often did your asthma symptoms wake you up at night or earlier than usual in the morning?: Not at all During the past 4 weeks, how often have you had to use your rescue inhaler or nebulizer medication?: Not at all How would you rate your asthma control during the past 4 weeks?: Completely controlled ACT Interpretation: Negative Score: 25 Review of Systems Const Denies chills, Denies fatigue, Denies fever(s), Denies headache(s) and Denies weakness ENT Denies dizziness and Denies headache(s) Card Denies chest pain, Denies lightheadedness, Denies dyspnea and Denies other (Palpitations) Resp Denies cough, Denies dyspnea, Denies wheezing and Denies other ( shortness of breath) Musc Denies numbness and Denies tingling Neuro Denies dizziness, Denies headache(s), Denies numbness, Denies tingling, Denies paresthesias and Denies weakness Psych Denies anxiety and Denies depression Endo Denies fatigue Aller/Immun Denies wheezing Physical exam (Primary Care) Vital Signs: Last Vital Signs Temp 97.9 F 03/24/25 10:17 Pulse 83 03/24/25 10:17 Resp 16 03/24/25 10:17 BP 138/80 03/24/25 10:17 Pulse Ox 97 03/24/25 10:17 Oxygen Delivery Method Room Air 03/24/25 10:17 BMI result Body Mass Index 31.9 Tobacco/Smoking Status: Tobacco use Status Tobacco use date assessed 03/24/25 03/24/25 10:22 Patient Tobacco Use Status Former Tobacco user 03/24/25 10:22 e-Cigarette/Vaping Use Never Used 03/24/25 10:22 PHQ-9: PHQ-9 Score PHQ-9: Total score 0 03/24/25 10:32 Depression Screening Interpretation: Negative Thrive Assessment: Date of Thrive Assessment Date Thrive assessed 03/24/25 03/24/25 10:22 Currently or been in a relationship where the following occur: No concerns reported Const General: no acute distress and well developed Nutritional Appearance: well nourished Orientation/consciousness: patient oriented x3 HENMT Head: Yes normocephalic and Yes atraumatic Eyes General: appearance normal, both eyes and all related structures Pupils: Equal, round and reactive pupils present EOM: EOMs intact bilaterally Resp Effort & Inspection: normal respiratory effort Auscultation: clear to auscultation bilaterally Cardio Rate: regular rate Rhythm: regular rhythm Heart sounds: S1 normal heart sound present, S2 normal heart sound present, no gallops, no murmurs and no rubs Neuro General: patient oriented x3 and gait normal Cranial nerves: Yes Equal, round and reactive pupils present Psych Affect: normal affect Coding Level of Care Code New Pt Level 3 (29284) Diagnoses Sick sinus syndrome I49.5 Normally functioning cardiac pacemaker present Z95.0 History of aortic aneurysm Z86.79 Essential (primary) hypertension I10 Hyperlipidemia E78.5 Foot drop, left M21.372 Screening for prostate cancer Z12.5 History of DVT (deep vein thrombosis) Z86.718 Laboratory exam ordered as part of routine general medical examination Z00.00 Additional Codes Asthma Control Questionnaire - ACT Interpretation: Negative ([id number]) WOLFGANG-7 Assessment Billing - WOLFGANG-7 Assessment Tool: WOLFGANG-7 Assessment 68770 ([id number]) PHQ-9 - 41061 - PHQ-9 Billing: Yes ([id number]) Assessment & Plan Assessment & Plan (1) Sick sinus syndrome: Code(s): I49.5 - Sick sinus syndrome Category: Medical Plan: Has pacer and is followed by cardiology, Dr Michele in [place] Follow-up with Cardiology as recommended (2) Normally functioning cardiac pacemaker present: Code(s): Z95.0 - Presence of cardiac pacemaker Category: Medical Plan: As above, follow-up with Cardiology as recommended (3) History of aortic aneurysm: Code(s): Z86.79 - Personal history of other diseases of the circulatory system Category: Medical Plan: S/p endovascular surgery Follow-up with vascular as recommended (4) Essential (primary) hypertension: Code(s): I10 - Essential (primary) hypertension Category: Medical Plan: Blood pressure shows fair control. History of aortic aneurysm as well Recommend blood pressure less than 130/80 Will continue monitor (5) Hyperlipidemia: Code(s): E78.5 - Hyperlipidemia, unspecified Category: Medical Plan: History of hyperlipidemia. Patient declines statin medications Will recheck lipids and continue to advise patient (6) Foot drop, left: Code(s): M21.372 - Foot drop, left foot Category: Medical Plan: Left footdrop which patient notes is worsening Will refer him to Neurology (7) Screening for prostate cancer: Code(s): Z12.5 - Encounter for screening for malignant neoplasm of prostate Category: Medical Plan: PSA value in December was within normal limits (8) History of DVT (deep vein thrombosis): Code(s): Z86.718 - Personal history of other venous thrombosis and embolism Category: Medical Plan: History of DVT. He is on Eliquis Stable (9) Laboratory exam ordered as part of routine general medical examination: Code(s): Z00.00 - Encounter for general adult medical examination without abnormal findings Category: Medical Plan: Check labs Orders: Orders Complete Blood Count Auto Diff Today Z00.00 - Encounter for general adult medical examination without abnormal findings UA CC w/rflx Micro + Cult Today Z00.00 - Encounter for general adult medical examination without abnormal findings Vitamin B12 and Folate Today E53.8 - Deficiency of other specified B group vitamins Vitamin D 25-OH Total Today E55.9 - Vitamin D deficiency, unspecified Comprehensive [place]. Panel Fast Today Z00.00 - Encounter for general adult medical examination without abnormal findings Prostate Specific Antigen Scr Today Z12.5 - Encounter for screening for malignant neoplasm of prostate Lipid Panel Today Z00.00 - Encounter for general adult medical examination without abnormal findings Microalbumin, Random (w Creat) Today I10 - Essential (primary) hypertension TSH reflex Free T4 Today Z00.00 - Encounter for general adult medical examination without abnormal findings Referrals Neurology Referral M21.372 - Foot drop, left foot
[2025-03-24 10:17] VITALS: BP 138/80; PULSE 83; RESP 16; TEMP 36.6; O2SAT 97; BMI 31.9
--- OUTSIDE RECORDS SUMMARY | 2025-03-24 11:08 | XMS_ITS | Encounter Summary ---
Author Organization [facility] Address [address] [facility] [address] [place] [phone] Phone Care Team Providers Care Meat Cutter Apprentice Name Role Phone Corey Sandoval MD Primary Care Provider + [phone] Reason for Referral * Outpatient Procedure - Closed Specialty Diagnoses / Procedures Referred By Contac t Referred To Contact Radiology Diagnoses History of pulmonary embolism Enlargement of abdominal aorta Procedures US Aorta Duplex Complete Silver Isaacs MD [address] [place] [address] Dr STEPHENS [address] [place] [phone] Phone: tel: fax: Referral ID Status Reason Start Date Expiration Date Visits Re quested Visits Authorized [id number] Closed 01/01/2024 12/31/2024 1 1 * Outpatient Procedure - Closed Specialty Diagnoses / Procedures Referred By Contac t Referred To Contact Radiology Diagnoses History of DVT (deep vein thrombosis) History of pulmonary embolism Procedures US Lower Extremity Veins Duplex (Left) Silver Isaacs MD [address] [place] [address] Dr STEPHENS [address] [place] [address] Phone: tel: fax: Referral ID Status Reason Start Date Expiration Date Visits Re quested Visits Authorized [id number] Closed 01/01/2024 12/31/2024 1 1 Encounter Details Date Type Department Care Team (Late st Contact Info) Description 01/01/2024 Transcribe Orders Virtual Department [address] [place] [address] Silver Isaacs MD [address] [place] [address] [place] [id number] History of DVT (deep vein thrombosis) (Primary [...] clinician's provided indication for this examination in [facility]: Outside Radiology Order; hx dvt TECHNIQUE: [...] initiated on 01/15/2024 9:15 AM, Message ID [id number]. ATTESTATION: I, Dr. Bola Payton as teaching [...] was initiated on 01/15/2024 9:15 AM, MessageID [id number]. ATTESTATION: I, Dr. Bola Payton as teaching [...] embolism documented in this encounter Care Teams Meat Cutter Apprentice Relationship Specialty Start Date End Date Corey Sandoval MD [address] [place] [phone] [email or web address] PCP - General Internal Medicine 06/08/20 documented as of this encounter Additional Source Comments The information contained in this document represents components of the legal health record. It is not the complete legal health record.[facility]
--- OUTSIDE RECORDS SUMMARY | 2025-03-24 11:09 | XMS_ITS | Patient Health Record ---
Author Organization Silver Isaacs MD Address [address] [place], [place] [id number] Care Team Providers Care Gas Meter Repairer Name Role Phone Silver Isaacs Primary Care Provider Allergies No Known Allergies Results Component Value Reference Range Notes Complete Blood Count Auto Di ff Reviewed date:06/24/2024 12:45:13 PM Interpretation: Performing Lab:[facility], [address] [place] [phone] Notes/Report: White Blood Count 5.9 4.8-10.8 X10*3/uL [...] 0.00-0.03 X10*3/uL Lymphocytes Absolute Auto 1.8 1.2-4.9 X10*3/ uL Monocytes Absolute Auto 0.5 0.1-1.2 X10*3/uL Eosinophils Absolute Auto 0.1 0.0-0.4 X10*3/u L Basophils Absolute Auto 0.1 0.0-0.2 X10*3/uL NRBC Abs Auto 0.000 0.0-0.012 X10*3/uL Comprehensive [place]. Panel [facility] Reviewed date:06/24/2024 12:52:45 PM Interpretation: Performing Lab:[facility], [address] [place] [phone] Notes/Report: Sodium 143 135-145 mmol/L Potassium 3.8 [...] 3.5-5.0 g/dL Alkaline Phosphatase 101 39-117 U/L Occult Blood, Stool, Guaiac Reviewed date:01/06/2025 01:45:26 PM Interpretation:Negative Performing Lab: Notes/Report: Negative Occult Blood, Stool, Guaiac Neg Urinalysis and Microscopic Reviewed date:01/08/2025 02:43:17 PM Interpretation: Performing Lab:[facility], [address] [place] [phone] Notes/Report: Color Urine Yellow Appearance Urine Clear PH 6.0 5.0-9.0 Glucose Urine UA Negative Negative mg/dL Urine Blood Small (1+) Negative Specific [place] - Urine 1.015 1.005-1.025 Urine Protein 30 (1+) Neg-Trace mg/dL Urine Ketones Negative Negative mg/dL Nitrite Urine Negative Negative Leukocyte Esterase Urine Negative Negative RBC Urine 3-5 0-2 /HPF WBC Urine 0-5 0-5 /HPF Squamous Epithelial Cell Urine 0-2 0-2 /HPF Bacteria Urine None Seen None Seen Hyaline Casts Urine 0-2 0-2 /LPF Reason For Referral Reason hematuria Diagnosis 1 Hematuria (R31.9) Referral Organization Silver Isaacs MD Referring Provider First Name Silver Referring Provider Last Name Ferny Referring Provider Speciality Internal M edicine Referred Provider Nav Maldonado Referred Provider Specialty Urology General Notes Siena Galdamez 0 01/08/2025 02:42:51 PM >referral info faxedDenice Annette 01/13/2025 08:42:27 AM > info refaxedDenice Annette 01/16/2025 03:05:26 PM >was told patient is aware of appt Referral Priority Routine Referral Appointment Date 03/25/2025 Medications Medication SIG (Take, Route, Frequency, Duration) [...] Problem Status W/U Status Risk Notes Problem [id number] Primary osteoarthritis, 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) Active confirmed Problem Disorder of lumbar disc (521968101) Lumbar disc disease (M51.9) Active confirmed Problem 26737501 Essential hypertension (I10) Active confirmed Problem 800015278 History of pulmonary embolism (Z86.711) Active confirmed Problem 638205260 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) Active confirmed Problem 048452862881459 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) Active confirmed Problem 397322712 Memory changes (R41.3) Active confirmed Problem 5800447704992256 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) Active confirmed Problem 109652532 Enlargement of abdominal aorta (I77.89) Active confirmed Problem 00055444 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) Active confirmed Vital Signs Blood pressure diastolic 64 mm Hg 01/06/2025 patsy ght is up 2 pounds since 07-11-24 Height 68 in 01/06/2025 weight is up 2 pounds since 07-11-24 Blood pressure systolic 112 mm Hg 01/06/2025 weig ht is up 2 pounds since 07-11-24 Weight 203 lbs 01/06/2025 weight is up 2 pounds since 07-11-24 BMI 30.86 kg/m2 01/06/2025 weight is up 2 pounds since 07-11-24 Encounters Encounter Location Date Provider Diagnosis Silver Isaacs MD [address] [place] [id number] 01/06/2025 Silver Isaacs Annual physical exam Z00.00 ; 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 I26.92 ; Essential hypertension I10 ; Hematuria R31.9 ; Colon cancer screening Z12.11 and Depression screening Z13.31 Silver Isaacs MD [address] [place] [id number] 06/19/2024 Silver Isaacs Essential hypertension I10 and 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 I26.92 Silver Isaacs MD [address] [place] [id number] 04/24/2024 Silver Isaacs Pararenal abdominal aortic aneurysm (AAA) without rupture I71.41 and Left foot drop M21.372 Silver Isaacs MD [address] [place] [id number] 05/23/2024 Silver Isaacs History of pulmonary embolism Z86.711 ; Pararenal abdominal aortic aneurysm (AAA) without rupture I71.41 ; Memory changes R41.3 and Essential hypertension I10 Silver Isaacs MD [address] [place] [id number] 07/11/2024 Silver Isaacs Essential hypertension I10 ; Lumbar disc disease M51.9 and Pararenal abdominal aortic aneurysm (AAA) without rupture I71.41 Silver Isaacs MD [address] [place] [id number] 06/06/2024 Silver Isaacs 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 I26.92 ; Essential hypertension I10 and Left foot drop M21.372 Silver Isaacs MD [address] [place] [id number] 04/24/2024 Silver Isaacs MD [address] [place] [address] [id number] 05/08/2024 Silver Isaacs MD [address] [place] [address] [id number] 07/28/2024 Silver Isaacs MD [address] [place] [address] [id number] 08/25/2024 Silver Isaacs Essential hypertension I10 and History of pulmonary embolism Z86.711 Silver Isaacs MD [address] [place] [address] [id number] 08/29/2024 Silver Isaacs Essential hypertension I10 and History of pulmonary embolism Z86.711 Silver Isaacs MD [address] [place] [address] [id number] 09/08/2024 Silver Isaacs MD [address] [place] [address] [id number] 02/19/2025 Silver Isaacs MD [address] [place] [address] [id number] 02/24/2025 Silver Isaacs Assessments Encounter Date Diagnosis (ICD Code) Assessment Notes Treatment Notes Treatment Clinical Notes Section Notes 01/06/2025 Annual physical exam (ICD-10 - Z00.00) labs reviewed and discussed with patient 01/06/2025 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 will try slowly stopping them/ stop te metoprolol/ THE ORDER HAS BEEN FAXED TO [facility] FOR SCHEDULING, PATIENT AWARE THEY WILL CALL [...] didn't go for his cat scan . 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 (ICD-10 - I26.92) had no cause of the pulmonary embolist so needs to be on eliquis indefinitely 06/06/2024 Essential hypertension (ICD-10 - I10) 08/25/2024 Essential hypertension (ICD-10 - I10) 08/29/2024 [...] vascular surgery visit/REQUEST MADE TO MED RECORDS 06/06/2024 Left foot drop (ICD-10 - M21.372) pending diagnostic testing, Order faxed to [facility] 08/25/2024 History of pulmonary embolism (ICD-10 - Z86.711) 08/29/2024 History of pulmonary embolism (ICD-10 - Z86.711) 01/06/2025 Hematuria (ICD-10 - R31.9) pending labs 05/23/2024 Essential hypertension (ICD-10 - I10) has never had bp issue before the hospital. will stop the amlodipine 01/06/2025 Colon cancer screening (ICD-10 - Z12.11) guaiac negative 01/06/2025 Depression screening (ICD-10 - Z13.31) negative screen Plan Of Treatment Pending Test Test Name Order Date MRI LUMBAR SPINE NO CONTRAST 04/24/2024 US ABD AORTA 01/01/2024 US LEG LT VENOUS DOPPLER 01/01/2024 CT lumbar spine wo con 06/06/2024 Next Appt Details Provider Name:Silver hemphill, 07/06/2025 01:45:00 PM, [address] [place] [address], [address], [phone], Provider Name:Silver hemphill, 01/01/2026 08:00:00 AM, [address] [place] [address], [address], [phone], Provider Name:Silver hemphill, 01/08/2026 01:30:00 PM, [address] [place] [address], [address], [phone], Insurance Providers Payer Name Payer Address Payer Phone Subscriber Number Group Number Insured Name Patient Relationship to Insured Coverage Start Date Coverage End Date [employer]AN [facility] [address] [place] [phone] [id number] Carlin Milton Self - patient is the insured
--- OUTSIDE RECORDS SUMMARY | 2025-03-24 11:09 | XMS_ITS | Encounter Summary ---
Author Organization [facility] Address [address] [facility] [address] [place] [phone] Phone Care Team Providers Care Extractor And Wringer Operator Name Role Phone Corey Sandoval MD Primary Care Provider [phone] Encounter Details Date Type Department Care Team ([facility] Contact Info) Description 09/02/2021 Procedure Pass Echo Lab [address] [place] [address] Social History Tobacco Use Types Packs/Day Years [...] documented as of this encounter Care Teams Extractor And Wringer Operator Relationship Specialty Start Date End Date Corey Sandoval MD [address] [place] [phone] [email or web address] PCP - General Internal Medicine 06/08/20 documented as of this encounter Additional Source Comments The information contained in this document represents components of the legal health record. It is not the complete legal health record.[facility]
--- OUTSIDE RECORDS SUMMARY | 2025-03-24 11:09 | XMS_ITS | Clinical Summary ---
Author Organization [facility] Address [address] [place] [address] Care Team Providers Care First Calender Worker Name Role Phone Silver Isaacs MD Primary Care Provider Allergies No known active allergies Medications acetaminophen (Tylenol) 325 MG tablet Take 1 tablet (325 mg total) by mouth every 4 (four) hours as needed. 01/29/2024 Active amLODIPine (NORVASC) 5 MG tablet Take 1 tablet (5 mg total) by mouth daily. 01/29/2024 Active metoPROLOL TARTRATE (LOPRESSOR) 25 MG tablet Take 0.5 tablets (12.5 mg total) by mouth 2 (two) times a day. 01/29/2024 Active aspirin enteric coated 81 MG EC tablet Take 1 tablet (81 mg total) by mouth daily. Active Active Problems Problem Noted Date Diagnosed Date Acute deep vein thrombosis ( DVT) of popliteal vein of left lower extremity 07/11/2023 Hypertension 07/11/2023 Pulmonary embolism 07/10/2023 Overview (01/16/2025): -Patient denies any change in activity, no [...] strain, admitted for anticoagulation and hemodynamic monitoring. NSVT (nonsustained ventricular tachycardia) 08/13 SVT (supraventricular tachycardia) 09/02/2021 Lower extremity edema 04/02/2018 Presence of cardiac pacemaker 03/15/2017 Sick sinus syndrome 03/15/2017 Encounters Date Type Department Care Team Description 01/16/2025 1:40 PM EDT Consult [facility] [place] [address] [place] [address] Arabella Michele MD NSVT (nonsustained ventricular tachycardia) (HCC) (Primary Dx); Mixed hyperlipidemia ; Sick sinus syndrome (HCC); Primary hypertension 01/16/2025 Travel from Last 3 Months Social History Tobacco Use Types Packs/Day Years Used Date Smoking Tobacco: Never Smokeless Tobacco: Never Tobacco Cessation:Counseling Given: Not Answered Sex and Gender Information Value Date Recorded Sex Assigned at Not on file Legal Sex Male 3:26 PM EDT Gender Identity Not on file Sexual Orientation Not on file Last Filed Vital Signs Vital Sign Reading Time Taken Comments Blood Pressure 142/82 01/16/2025 12:54 PM EDT Pulse 81 01/16/2025 12:54 PM EDT Temperature - - Respiratory Rate - - Oxygen Saturation 96% 01/16/2025 12:54 PM EDT Inhaled Oxygen Concentration - - Weight 91.6 kg (202 lb) 01/16/2025 12:54 PM EDT Height 175 cm (5' 8.9 ) 01/16/2025 12:54 PM EDT Body Mass Index 29.92 01/16/2025 12:54 PM EDT Plan of Treatment Health Maintenance Due Date Last Done Comments Advance Care Planning 1935 DTaP/Tdap/Td Vaccines (1 - Tdap) 01/21/1954 Pneumococcal Vaccines 50+ (1 of 1 - PCV) 01/21/1986 Zoster (Shingles) Vaccine (1 of 2) 01/21/1986 RSV Vaccine 50 years and old er and Patients (1 - 1-dose 75+ series) 01/21/2011 Influenza Vaccine 12/12/2024 COVID-19 Vaccine ( - 2023-2 5 season) 2025 Hepatitis B Vaccines Aged Out No long er eligible based on patient's age to complete this topic Procedures Procedure Name Priority Date/Time Associated Diagnosis Comments LAB RESULT Routine 02/18/2025 12:56 PM EDT ECG 12-LEAD Routine 01/16/2025 1:18 PM EDT NSVT (nonsustained ventricular tachycardia) (HCC) from Last 3 Months Results * LAB RESULT (02/18/2025 12:56 PM EDT) us External Provider HX AMB PROCEDURES Final Res ult * ECG 12 lead (01/16/2025 1:18 PM EDT) Ventricular rate 81 BPM EKG [facility] Atrial rate 81 BPM EKG [facility] P-R interval 178 ms EKG [facility] QRS duration 184 ms EKG [facility] Q-T interval 450 ms EKG [facility] QTC calculation (Bazett) 522 ms EKG [facility] P axis 55 degrees EKG [facility] R axis -83 degrees EKG [facility] T axis 75 degrees EKG [facility] 01/16/2025 1:18 PM EDT Narrative EKG [facility] - 01/16/2025 3:02 PM EDT AV dual-paced rhythm Abnormal ECG No previous ECGs available Confirmed by Arabella Michele MD ([id number]) on 01/16/2025 3:02:16 PM Procedure Note Arabella Michele MD - 01/16/2025 AV dual-paced rhythm Abnormal ECG No previous ECGs available Confirmed by Arabella Michele MD ([id number]) on 01/16/2025 3:02:16 PM us Arabella Michele MD ECG ORDERABLES Final Result [facility] from Last 3 Months Insurance [facility] MEDICARE Care Teams First Calender Worker Relationship Specialty Start Date End Date Silver Isaacs MD [address] [place] [address] [place] [id number] PCP - General Internal Medicine 11/25/24
--- OUTSIDE RECORDS SUMMARY | 2025-03-24 11:11 | XMS_ITS | Clinical Summary ---
Author Organization [facility] Address [address] [facility] [address] [place] [address] Phone Care Team Providers Care Fbi Profiler Name Role Phone Corey Sandoval MD Primary [...] VACCINE (1 - 1-dose 75+ series) 01/21/2011 CREATININE LEVEL 10/21/2024 10/22/2023, , 07/11/2023, Additional history exists POTASSIUM LEVEL 10/21/2024 10/22/2023, 02/01/2024, 07/11/2023, Additional history exists INFLUENZA VACCINE (#1) 2024 COVID-19 VACCINE ( - season) 2025 HEPATITIS A VACCINES Aged Out No long er eligible based on patient's age to complete this topic HIB VACCINES Aged Out No longer eligi ble based on patient's age to complete this topic IPV VACCINES Aged Out No longer eligi ble based on patient's age to complete this topic MENINGOCOCCAL VACCINES (ACWY) Aged Out No longer eligible based on patient's age to complete this topic MENINGOCOCCAL VACCINES (B) Aged Out N o longer eligible based on patient's age to complete this topic Medical Devices Implanted Type Area Casting And Locker Room Servicer Device Identifier Shelf Expiration Date Model / Serial / Lot Medtronic Pacemaker Procedures Procedure Name Priority Date/Time Associated Diagnosis Comments BASIC METABOLIC PANEL (BMP) STAT 10/22/2023 10:05 AM EDT from Last 3 Months or Most Recently Relevant to Health Maintenance Results * (ABNORMAL) Basic metabolic panel (10/22/2023 10:05 AM EDT) SODIUM 141 133 - 146 mmol/L [facility] CHLORIDE 106 96 - 108 mmol/L [facility] POTASSIUM 4.0 3.3 - 5.1 mmol/L [facility] CO2 23 21 - 35 mmol/L [facility] BUN 17 6 - 19 mg/dL [facility] CREATININE 1.40 0.5 - 1.5 mg/dL [facility] GLUCOSE 109(H) 70 - 99 mg/dL [facility] CALCIUM 9.1 8.4 - 10.3 mg/dL [facility] EGFR 49(L) >59 mL/min/1.7 3m2 [facility] Comment:Estimated glomerular filtration rate calculated using the CKD-EPI refit equation. ANION GAP 16 10 - 20 mmol/L [facility] Blood 10/22/2023 10:0 5 AM EDT 10/22/2023 10:08 AM EDT us Ronni Machuca SALESPERSON WIGS LAB BLOOD BKR ORDERABLES Final Result [facility] [address] [place] [address] from Last 3 Months or Most Recently Relevant to Health Maintenance Insurance [employer] HMO REPLACEMENT [employer] HMO [employer]PLACEMENT [employer] MEDIC[employer] HMO [place] [address] [place] [address] MEDICARE HMO REPLACEMENT [employer] HMO REPLACEMENT [employer] HMO REPLACEMENT [employer] H[employer] REPLACEMENT [employer] H[employer] REPLACEMENT [employer] H[employer] REPLACEMENT Advance Directives For more information, please contact: [phone] (9AM - 5PM [facility], Sunday-Sunday) Documents on File Type Date Recorded Patient Esl Teacher Expl anation Healthcare Proxy 07/13/2023 2:00 PM * Full Code (Latest Code Status on File) Date Activated Date Inactivated Comments 07/10/2023 5:46 PM Question Answer Comments Code Status Confirmed With: Patient * Full Code (Confirmed) Date Activated Date Inactivated Comments 04/02/2018 8:47 AM 04/03/2018 3:58 PM Question Answer Comments Code Status Confirmed With: PatientFamily Care Teams Fbi Profiler Relationship Specialty Start Date End Date oCrey Sandoval MD [address] [place] [id number] [email or web address] PCP - General Internal Medicine 06/08/20 Additional Source Comments The information contained in this document represents components of the legal health record. It is not the complete legal health record.[facility]
--- OUTSIDE RECORDS SUMMARY | 2025-03-24 11:11 | XMS_ITS | Encounter Summary ---
Author Organization [facility] Address [address] [facility] [address] [place] [address] Phone Care Team Providers Care Lens Molder Name Role Phone Corey Sandoval MD Primary Care Provider [phone] Encounter Details Date Type Department Care Team (Late st Contact Info) Description 07/10/2023 Procedure Pass [facility] [address] [place] [address] Social History Tobacco Use Types Packs/Day Years [...] 9:47 AM EST Ajit Means RN * [place] Suicide Severity Rating Scale (Screener/Recent Self-Report) Question [...] documented as of this encounter Care Teams Lens Molder Relationship Specialty Start Date End Date Corey Sandoval MD [address] [place] [address] [email or web address] PCP - General Internal Medicine 06/08/20 documented as of this encounter Additional Source Comments The information contained in this document represents components of the legal health record. It is not the complete legal health record.[facility]
--- OUTSIDE RECORDS SUMMARY | 2025-03-24 11:12 | XMS_ITS | Encounter Summary ---
Author Organization [facility] Address [address] [facility] [address] [place] [address] Phone Care Team Providers Care Manager Architecture Name Role Phone Dante Javier MD Primary Care Provider Corey Sandoval MD Primary Care Provider [phone] Encounter Details Date Type Department Care Team (Late st Contact Info) Description 03/18/2018 Ancillary Orders Non-Invasive Cardiology [address] [place] [address] Trav Hernandez MD [address] [place] [address] [email or web address] Sick sinus syndrome Social History Tobacco Use [...] * DEVICE CHECK: PPM REMOTE INTERROGATION WITH RELAY TESTER HELPER REVIEW (03/19/2018 8:15 AM EST) Narrative Trav Hernandez MD - 03/20/2018 12:34 PM EST Reason for appointment: Remote pacemaker interrogation HPI: Routine 3 month remote pacemaker interrogation. No device related complaints. Indication for device: SSS. Examination: Device type: Pacemaker Salvage Laborer: Medtronic Mode: AAIR-DDDR LRL/UPL: 60/130 bpm Mode [...] documented as of this encounter Care Teams Manager Architecture Relationship Specialty Start Date End Date Dante Javier MD [address] [place] [address], [address] [place] [address] [email or web address] PCP - General Internal Medicine 11/01/17 06/07/20 Corey Sandoval MD [address] [place] [address] [email or web address] PCP - General Internal Medicine 06/08/20 documented as of this encounter Additional Source Comments The information contained in this document represents components of the legal health record. It is not the complete legal health record.[facility]
--- OUTSIDE RECORDS SUMMARY | 2025-03-24 11:12 | XMS_ITS | Encounter Summary ---
Author Organization [facility] Address [address] [facility] [address] [place] [address] Phone Care Team Providers Care Search Marketing Coordinator Name Role Phone Manjinder Zaidi DO Primary Care Provider [phone] Dante Javier MD Primary Care Provider Corey Sandoval MD Primary Care Provider [phone] Encounter Details Date Type Department Care Team (Latest Contact Info) Description 03/03/2017 Ancillary [facility] [address] [place] [address] Trav Hernandez MD [address] [place] [address] [email or web address] Diagnosis unknown Social History Tobacco Use Types [...] today's date. Device Check: Device Type: Pacemaker Educational Paraprofessional:Medtronic Battery: 9 yrs Mode: MVPR LRL/URL: 60/130 BPM AP: 6.3% HYPERBARIC TECHNOLOGIST: <1% AMS: None AF burden:None Lead impedances, [...] documented as of this encounter Care Teams Search Marketing Coordinator Relationship Specialty Start Date End Date Manjinder Zaidi DO [email or web address] PCP - General 03/01/17 10/31/17 Dante Javier MD [address] [place] [address], [address] [place] [address] [email or web address] PCP - General Internal Medicine 11/01/17 06/07/20 Corey Sandoval MD [address] [place] [address] [email or web address] PCP - General Internal Medicine 06/08/20 documented as of this encounter Additional Source Comments The information contained in this document represents components of the legal health record. It is not the complete legal health record.[facility]
--- OUTSIDE RECORDS SUMMARY | 2025-03-24 11:12 | XMS_ITS | Encounter Summary ---
Author Organization [facility] Address [address] [facility] [address] [place] [address] Phone Care Team Providers Care Business Analyst Manager Name Role Phone Manjinder Zaidi DO Primary Care Provider [phone] Dante Javier MD Primary Care Provider [phone] Corey Sandoval MD Primary Care Provider [phone] Encounter Details Date Type Department Care Team (Late st Contact Info) Description 06/28/2017 Ancillary Orders Non-Invasive Cardiology [address] [place] [address] Trav Hernandez MD [address] [place] [address] [email or web address] Sick sinus syndrome Social History Tobacco [...] for device SSS. Examination: Device type: pacemaker Quarry Manager: MDAdam Thresholds, impedances, and sensing stable. Mode [...] documented as of this encounter Care Teams Business Analyst Manager Relationship Specialty Start Date End Date Manjinder Zaidi DO PCP - General 03/01/17 10/31/17 Dante Javier MD [address] [place] [address] [address] [place] [address] [email or web address] PCP - General Internal Medicine 11/01/17 06/07/20 Corey Sandoval MD [address] [place] [address] [email or web address] PCP - General Internal Medicine 06/08/20 documented as of this encounter Additional Source Comments The information contained in this document represents components of the legal health record. It is not the complete legal health record.[facility]
--- OUTSIDE RECORDS SUMMARY | 2025-03-24 11:12 | XMS_ITS | Encounter Summary ---
Author Organization [facility] Address [address] [facility] [address] [place] [address] Phone Care Team Providers Care Manager Brand Name Role Phone Manjinder Zaidi DO Primary Care Provider [phone] Dante Javier MD Primary Care Provider Corey Sandoval MD Primary Care Provider [phone] Encounter Details Date Type Department Care Team (Late st Contact Info) Description 06/28/2017 Ancillary [facility] [address] [place] [address] Trav Hernandez MD [address] [place] [address] Social History Tobacco Use Types Packs/Day Years [...] as of this encounter Care Teams Manager Brand Relationship Specialty Start Date End Date Manjinder Zaidi DO [email or web address] PCP - General 03/01/17 10/31/17 Dante Javier MD [address] [place] [address], [address] [place] [address] [email or web address] PCP - General Internal Medicine 11/01/17 06/07/20 Corey Sandoval MD [address] [place] [address] [email or web address] PCP - General Internal Medicine 06/08/20 documented as of this encounter Additional Source Comments The information contained in this document represents components of the legal health record. It is not the complete legal health record.[facility]
--- OUTSIDE RECORDS SUMMARY | 2025-03-24 11:12 | XMS_ITS | Patient Health Record ---
Author Organization [facility] Address [address] [place] [address] Care Team Providers Care Reformatory Attendant Name Role Phone Name Yo BAIG Primary Care Provider Franklyn Muniz Unavailable [phone] Reason For Referral No Information Problems Problem Type SNOMED Code ICD Code Onset Dates Problem Status W/U Status Risk Notes Problem Pain in limb (04104778) Pain in Limb (729.5) Active confirmed Plan Of Treatment Pending Test Test Name Order Date [id number] Destruction, 05-2706/15/2011 [id number] Destruction, 05-2712/13/2011 Insurance Providers Payer Name Payer Address Payer Phone Subscriber Number Group Number Insured Name Patient Relationship to Insured Coverage Start Date Coverage End Date [facility] [address] [facility] [address] [id number] Carlin Milton Self - patient is the insured Medical (General) History Medical History History ICD Code chicken pox Surgical History Surgery Date(Month/Year) finger surgery
--- OUTSIDE RECORDS SUMMARY | 2025-03-24 11:12 | XMS_ITS | Encounter Summary ---
Author Organization [facility] Address [address] [facility] [address] [place] [address] Phone Care Team Providers Care Laboratory Administrative Director Name Role Phone Dante Javier MD Primary Care Provider [phone] Corey Sandoval MD Primary Care Provider [phone] Encounter Details Date Type Department Care Team (Late st Contact Info) Description 03/18/2018 Ancillary [facility] [address] [place] [address] Trav Hernandez MD [address] [place] [address] [email or web address] Social History Tobacco Use Types Packs/Day Years [...] documented as of this encounter Care Teams Laboratory Administrative Director Relationship Specialty Start Date End Date Dante Javier MD [address] [place] [address], [address] [place] [address] [email or web address] PCP - General Internal Medicine 11/01/17 06/07/20 Corey Sandoval MD [address] [place] [address] [email or web address] PCP - General Internal Medicine 06/08/20 documented as of this encounter Additional Source Comments The information contained in this document represents components of the legal health record. It is not the complete legal health record.[facility]
--- OUTSIDE RECORDS SUMMARY | 2025-03-24 11:12 | XMS_ITS | Encounter Summary ---
Author Organization [facility] Address [address] [facility] [address] [place] [address] Phone Care Team Providers Care Camera Prototyping Engineer Name Role Phone Corey Sandoval MD Primary Care Provider [phone] Encounter Details Date Type Department Care Team (Late st Contact Info) Description 07/10/2023 Procedure Pass [facility], Ct Scan - [address] [address] Social History Tobacco Use Types Packs/Day Years [...] 9:47 AM EST Ajit Means RN * [place] Suicide Severity Rating Scale (Screener/Recent Self-Report) Question [...] documented as of this encounter Care Teams Camera Prototyping Engineer Relationship Specialty Start Date End Date Corey Sandoval MD [address] [address] [email or web address] PCP - General Internal Medicine 06/08/20 documented as of this encounter Additional Source Comments The information contained in this document represents components of the legal health record. It is not the complete legal health record.[facility]
== END 2025-03-24 11:34 | disposition home or self-care (01) ==
LOC: HO.HMCFM 09:52
PROVIDERS: PCP Family Medicine; Visit Provider Family Medicine
DX: I49.5 Sick sinus syndrome (principal); Z95.0 Presence of cardiac pacemaker; Z86.79 Personal history of other diseases of the circulatory system; I10 Essential (primary) hypertension; E78.5 Hyperlipidemia, unspecified; M21.372 Foot drop, left foot; Z12.5 Encounter for screening for malignant neoplasm of prostate; Z86.718 Personal history of other venous thrombosis and embolism; Z00.00 Encounter for general adult medical examination without abnormal findings

== ENCOUNTER 2025-03-25 14:38 | Outpatient (AMB) | payer MEDICARE, SELFPAY ==
--- OUTSIDE RECORDS SUMMARY | 2024-07-11 06:30 | XMS_ITS ---
Author Organization Silver Isaacs MD Address [address] [place] [phone] Care Team Providers Care Porcelain Waxer Name Role Phone Silver Isaacs Primary Care Provider [phone] Allergies No Known Allergies REASON FOR VISIT 6 week, Accompanied by Medications Medication SIG (Take, Route, Frequency, Duration) Notes Start Date End Date Status Tamsulosin HCl 0.4 MG 1 capsule Orally O nce a day for 30 days Not-Taking Metoprolol Succinate ER 25 MG 0.5 tablet Orally twice a day Not-Taking Acetaminophen 325 MG 3 tablet as needed Orally every 6 hrs Not-Taking Aspir-Low 81 MG 1 tablet Orally Once a day for 30 day(s) Active Eliquis 2.5 MG 1 tablet Orally Twic e a day Active amLODIPine Besylate 5 MG 1 tablet Orally Once a day Active Problems Problem Type SNOMED Code ICD Code Onset Dates Problem Status W/U Status Risk Notes Problem Disorder of lumbar disc (240908697) Lumbar disc disease (M51.9) Active confirmed Vital Signs Blood pressure systolic 138 mm Hg 07/11/19 25 Blood pressure diastolic 76 mm Hg 025 Height 68 in 07/11/2024 Weight 201 lbs 07/11/2024 BMI 30.56 kg/m2 07/11/2024 Encounters Encounter Location Date Provider Diagnosis Silver Isaacs MD [address] [place] [phone] 07/11/2024 Silver Isaacs Essential hypertension I10 ; Lumbar disc disease M51.9 and Pararenal abdominal aortic aneurysm (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 Pararenal abdominal aortic a neurysm (AAA) without rupture need notes from vascular surgery visit/REQUEST MADE TO MED RECORDS Next Appt Details Provider Name:Silver hemphill, 07/06/2025 01:45:00 PM, [address] [place] [address], [address] [place] [address], [phone], Provider Name:Silver hemphill, 01/01/2026 08:00:00 AM, [address] [place] [address], Suite [facility], [place], [place], [phone], Provider Name:Silver hemphill, 01/08/2026 01:30:00 PM, [address] [place] [address], Suite [facility], [place], [place], [phone], Progress Notes * SHANELCarlinDOB:1935 ( 89 yo M)Acc No.[id number]:07/11/2024 Progress Notes Patient: Carlin TORREZ Provider: Leigh Ann Isaacs MD :1935 A ge:89 Y S ex:Male Date:07/11/2024 Address: [facility] [place] Subjective: * Chief Complaints: * 6 weekAccompanied by * HPI: F all Risk: History H ave you had any falls with injury in the past year? Y es slipped on the ice landed on left knee and left hand, no ER visit 07-07-24.. S ymptom(s): patient is a 89 yo male here for 6 week never had cat scan or mri. cancelled it. * ROS: G eneral/Constitutional: Denies C hange in appetite. D enies C hills. D enies F atigue. D enies F ever. E NT: Patient denies d ecreased sense of smell, any loss of taste, sore throat. D enies S ore throat. R espiratory: Denies C ough. D enies S hortness of breath at rest. D enies S hortness of breath with exertion. G astrointestinal: Denies D iarrhea. D enies N ausea. M usculoskeletal: Patient denies m uscle aches. P eripheral Vascular: Patient denies r ed and blue toes. * Medical History: * Surgical History: * Hospitalization/Major Diagno stic Procedure: * Medications: T akingamLODIPine Besylate 5 MG Tablet 1 tablet Orally [...] reviewed and reconciled with the patient * Allergies: N .K.D.A.yes[Allergies Verified] Objective: * Vitals: H t: 68, Wt: 201, BMI:30.56, BP:138/76, Wt-k.17. * P ast Orders: L ab:Comprehensive [place]. Panel Fast (Order Date - 06/19/2024) (Collection Date & Time - 06/24/2024 10:28 AM) Value Reference Range Sodium 143 135-145 - mmol/L Bilirubin Total 0.4 0.0-1.0 - mg/dL Aspartate Amino Transferase 26 5-37 - U/L Alanine Aminotransferase 15 0-40 - U/L Total Protein 7.9 6.5-8.0 - g/dL Albumin Level 3.9 3.5-5.0 - g/dL Alkaline Phosphatase 101 39-117 - U/L Potassium 3.8 3.3-5.1 - mmol/L Chloride 112 H 96-108 - mmol/L Carbon Dioxide 24 22-29 - mmol/L Anion Gap 11 L 12-20 - Blood Urea Nitrogen 23 H 9-16 - mg/dL Creatinine 1.76 H 0.5-1.4 - mg/dL Estimated Glomerular Filt Rate 37 - Glucose Fasting 127 H 60-99 - mg/dL Calcium 9.1 8.4-10.2 - mg/dL L ab:Complete Blood Count Auto Diff (Order Date - 06/19/2024) (Collection Date & Time - 06/24/2024 10:28 AM) Value Reference Range White Blood Count 5.9 4.8-10.8 - X10*3/uL Red Blood Count 3.93 L 4.60-5.80 - X10*6/uL Hemoglobin 12.5 L 14.0-18.0 - g/dl Hematocrit 37.5 L 42.0-52.0 - % Mean Corpuscular Volume 95.4 80.0-98.0 - fL Mean Corpuscular Hemoglobin 31.8 27.0-33.0 - pg Mean Corpuscular HGB Conc 33.3 31.0-36.0 - g/ dl Red Cell Distribution Width 13.7 11.0-16.0 - % Platelet Count 206 160-400 - X10*3/uL Mean Platelet Volume 10.9 9.4-12.4 - fL Neutrophils Percent Auto 58.3 45-73 - % Imm Gran Pct Auto 0.2 0.0-0.4 - % Lymphocytes Percent Auto 30.7 20-40 - % Monocytes Percent Auto 7.8 2-11 - % Eosinophils Percent Auto 2.0 0-4 - % Basophils Percent Auto 1.0 0-2 - % NRBC Pct Auto 0.0 0.0-0.2 - /100WBC Neutrophils Absolute Auto 3.4 2.0-8.3 - x10* 3/uL Imm Gran Abs Auto 0.01 0.00-0.03 - X10*3/uL Lymphocytes Absolute Auto 1.8 1.2-4.9 - X10* 3/uL Monocytes Absolute Auto 0.5 0.1-1.2 - X10*3/ uL Eosinophils Absolute Auto 0.1 0.0-0.4 - X10* 3/uL Basophils Absolute Auto 0.1 0.0-0.2 - X10*3/ uL NRBC Abs Auto 0.000 0.0-0.012 - X10*3/uL * Examination: G eneral Examination: GENERAL APPEARANCE: a lert, well hydrated, in no distress, male. HEAD: n ormocephalic. SKIN: g ood turgor. HEART: n o murmurs, rubs, gallops, regular rate and rhythm.? LUNGS: n o wheezes, rales, rhonchi, good air movement, clear to auscultation bilaterally. EXTREMITIES: n o edema. Assessment: * Assessment: 1. E ssential hypertension - I10 (Primary) 2 . L umbar disc disease - M51.9? 3. P ararenal abdominal aortic aneurysm (AAA) without rupture - I71.41 ? Plan: * Treatment: 2. L umbar disc disease Notes: said he would never have surgery and didn't go for his cat scan . 3. P ararenal abdominal aortic aneurysm (AAA) without rupture Notes: need notes from vascular surgery visit/REQUEST MADE TO MED RECORDS * Procedure Codes: G 2211 Complex e/m visit add on * * Sign off status: Completed true * Provider: Leigh Ann Isaacs MD Date: 0 07/11/2024 Generated for Barbara ryder/Cindy/Cristinasmitting on: 1 05/25/2024 06:06 PM EST History and Physical Notes * HPI (History of Present Illness) Category Sub-Category Detail Notes Category Not es Symptom(s) patient is a 89 yo male here for 6 week never had cat scan or mri. cancelled it Fall Risk History Have you had any falls with injury in the past year?: Yes slipped on the ice landed on left knee and left hand, no ER visit 07-07-24. Examination Category Sub-Category Detail Notes Category Not es General Examination GENERAL APPEARANCE: alert, w ell hydrated, in no distress, male HEAD: normocephalic HEART: no murmurs, rubs, ga llops, regular rate and rhythm LUNGS: no wheezes, rales, r honchi, good air movement, clear to auscultation bilaterally SKIN: good turgor EXTREMITIES: no edema
--- OUTSIDE RECORDS SUMMARY | 2024-07-28 05:35 | XMS_ITS ---
Author Organization Silver Isaacs MD Address [address] [place] [address] [place] [phone] Care Team Providers Care Instructor Nurse Name Role Phone Silver Isaacs Primary Care Provider REASON FOR VISIT HCC Risk Codes Encounters Encounter Location Date Provider Diagnosis Silver Isaacs MD [address] [place] [address] [place] [phone] 07/28/2024 Silver Isaacs Plan Of Treatment Next Appt Details Provider Name:Silver hemphill, 07/06/2025 01:45:00 PM, [address] [place] [address], Suite [facility], [place], [place], [phone], Provider Name:Silver hemphill, 01/01/2026 08:00:00 AM, [address] [place] [address], Suite [facility], [place], [place], [phone], Provider Name:Silver hemphill, 01/08/2026 01:30:00 PM, [address] [place] [address], [place] [address], [place], [place], [phone], Progress Notes * Carlin MILTONDOB:1935 ( 89 yo M)Acc No.[id number]:07/28/2024 Patient: Carlin TORREZ :1935 A ge:89 Y S ex:Male Address: [place], [address] * true * Date: Generated for Printi ng/Faxing/eTransmitting on: 05/25/2024 06:05 PM EST
--- OUTSIDE RECORDS SUMMARY | 2024-08-25 04:41 | XMS_ITS ---
Author Organization Silver Isaacs MD Address [address] [place] [address] [place] [phone] Care Team Providers Care Supervisor Asbestos Removal Name Role Phone Silver Isaacs Primary Care Provider REASON FOR VISIT refills Medications Medication SIG (Take, Route, Frequency, Duration) Notes Start Date End Date Status amLODIPine Besylate 5 MG 1 tablet Orally Once a day for 90 days Active Eliquis 2.5 MG 1 tablet Orally Twic e a day for 90 days Active Encounters Encounter Location Date Provider Diagnosis Silver Isaacs MD [address] [place] [address] [place] [phone] 08/25/2024 Silver Isaacs Essential hypertension I10 and History of pulmonary embolism Z86.711 Assessments Encounter Date Diagnosis (ICD Code) Assessment Notes Treatment Notes Treatment Clinical Notes Section Notes 08/25/2024 Essential hypertension (ICD-10 - I10) 08/25/2024 History of pulmonary embolism (ICD-10 - Z86.711) Plan Of Treatment Medication Medication Name Sig Start Date Stop Date Notes amLODIPine Besylate 5 MG 1 tablet Orally Once a day for 90 days Eliquis 2.5 MG 1 tablet Orally Twic e a day for 90 days Next Appt Details Provider Name:Silver hemphill, 07/06/2025 01:45:00 PM, [address] [place] [address], [address], [phone], Provider Name:Silver hemphill, 01/01/2026 08:00:00 AM, [address] [place] [address], [address], [phone], Provider Name:Silver hemphill, 01/08/2026 01:30:00 PM, [address], [address], [place], [place], [phone], Progress Notes * Carlin MILTONDOB:1935 ( 89 yo M)Acc No.[id number]:08/25/2024 Patient: Carlin TORREZ :1935 A ge:89 Y S ex:Male Address:[address] [place] [address] [place], [address] * Refills Refill amLODIPine Besylate Tablet, 5 MG, Orally, 90 Tablet, 1 tablet, Once a day, 90 days, Refills=3 Refill Eliquis Tablet, 2.5 MG, Orally, 180, 1 tablet, Twice a day, 90 days, Refills=3 * true * Date: Generated for Barbara ryder/Cindy/Ari on: 05/25/2024 06:06 PM EST
--- OUTSIDE RECORDS SUMMARY | 2024-08-29 05:57 | XMS_ITS ---
Author Organization Silver Isaacs MD Address [address] [place] [address] [place] [phone] Care Team Providers Care Bridge Tender Name Role Phone Silver Isaacs Primary Care Provider REASON FOR VISIT med issue Medications Medication SIG (Take, Route, Frequency, Duration) Notes Start Date End Date Status amLODIPine Besylate 5 MG 1 tablet Orally Once a day for 90 days Active Eliquis 2.5 MG 1 tablet Orally Twic e a day for 90 days Active Encounters Encounter Location Date Provider Diagnosis Silver Isaacs MD [address] [place] [address] [place] [phone] 08/29/2024 Silver Isaacs Essential hypertension I10 and [...] Provider Name:Silver hemphill, 07/06/2025 01:45:00 PM, [address] [place] [address], [address], [phone], Provider Name:Silver hemphill, 01/01/2026 08:00:00 AM, [address] [place] [address], [address], [phone], Provider Name:Silver hemphill, 01/08/2026 01:30:00 PM, [address] [facility], [address], [place], [place], [phone], Progress Notes * Carlin MILTONDOB:1935 ( 89 yo M)Acc No.[id number]:08/29/2024 Patient: Carlin TORREZ :1935 A ge:89 Y S ex:Male Address:[address] [place] [address] [place], [address] * Refills Refill amLODIPine Besylate Tablet, 5 MG, Orally, 90, 1 tablet, Once a day, 90 days, Refills=3 Refill Eliquis Tablet, 2.5 MG, Orally, 180, 1 tablet, Twice a day, 90 days, Refills=3 * true * Date: Generated for Barbara ryder/Cindy/Ari on: 05/25/2024 06:07 PM EST
--- OUTSIDE RECORDS SUMMARY | 2024-09-08 06:09 | XMS_ITS ---
Author Organization Silver Isaacs MD Address 10 [facility] [address] [place] [phone] Care Team Providers Care Sampler Tester Name Role Phone Silver Isaacs Primary Care Provider REASON FOR VISIT refund Encounters Encounter Location Date Provider Diagnosis Silver Isaacs MD [address] [place] [address] [place] [phone] 09/08/2024 Silver Isaacs Plan Of Treatment Next Appt Details Provider Name:Silver hemphill, 07/06/2025 01:45:00 PM, [address] [place] [address], Suite [facility], [place], [place], [phone], Provider Name:Silver hemphill, 01/01/2026 08:00:00 AM, [address] [place] [address], Suite [facility], [place], [place], [phone], Provider Name:Silver hemphill, 01/08/2026 01:30:00 PM, [address] [place] [address], [place] [address], [place], [place], [phone], Progress Notes * Carlin MILTONDOB:1935 ( 89 yo M)Acc No.[id number]:09/08/2024 Patient: Carlin TORREZ :1935 A ge:89 Y S ex:Male [facility], [address] * * Date:
--- OUTSIDE RECORDS SUMMARY | 2024-09-19 11:30 | XMS_ITS ---
Author Organization Silver Isaacs MD Address [address] [place] [phone] Care Team Providers Care Public Area Attendant Name Role Phone Silver Isaacs Primary Care Provider Allergies No Known Allergies REASON FOR VISIT 4 month, QA asking to add CKD code ? Encounters Encounter Location Date Provider Diagnosis Silver Isaacs MD [address] [place] [address] [place] [phone] 09/19/2024 Silver Isaacs Plan Of Treatment Next Appt Details Provider Name:Silver hemphill, 07/06/2025 01:45:00 PM, [address] [place] [address], Suite [facility], [place], [place], [phone], Provider Name:Silver hemphill, 01/01/2026 08:00:00 AM, [address] [place] [address], [address], [phone], Provider Name:Silver hemphill, 01/08/2026 01:30:00 PM, [address] [place] [address], [address], [phone], Progress Notes * YOANCarlinDOB:1935 ( 89 yo M)Acc No.[id number]:09/19/2024 Progress Notes Patient: Carlin TORREZ Provider: Leigh Ann Isaacs MD :1935 A ge:89 Y S ex:Male Date:09/19/2024 Address:[address] [place] [address] [phone] Subjective: * Chief Complaints: * 1 . [...] 09/19/2024 Generated for Barbara ryder/Cindy/Ari on: 1 05/25/2024 06:07 PM EST
--- OUTSIDE RECORDS SUMMARY | 2024-12-30 02:15 | XMS_ITS ---
Author Organization Silver Isaacs MD Address [address] [place], [place] [id number] Care Team Providers Care General Production Manager Name Role Phone Silver Isaacs Primary Care Provider Results Component Value Reference Range Notes Complete Blood Count Auto Di ff Reviewed date:12/30/2024 04:44:39 PM Interpretation: Performing Lab:[facility], [address] [place] [phone] Notes/Report: White Blood Count 7.0 4.8-10.8 X10*3/uL Red Blood Count 4.03 4.60-5.80 X10*6/uL Hemoglobin 12.5 14.0-18.0 g/dl Hematocrit 37.9 42.0-52.0 % Mean Corpuscular Volume 94.0 80.0-98.0 fL Mean Corpuscular Hemoglobin 31.0 27.0-33.0 pg Mean Corpuscular HGB Conc 33.0 31.0-36.0 g/dl Red Cell Distribution Width 13.9 11.0-16.0 % Platelet Count 208 160-400 X10*3/uL Mean Platelet Volume 10.5 9.4-12.4 fL Neutrophils Percent Auto 61.0 45-73 % Imm Gran Pct Auto 0.3 0.0-0.4 % Lymphocytes Percent Auto 27.8 20-40 % Monocytes Percent Auto 8.6 2-11 % Eosinophils Percent Auto 1.3 0-4 % Basophils Percent Auto 1.0 0-2 % NRBC Pct Auto 0.0 0.0-0.2 /100WBC Neutrophils Absolute Auto 4.2 2.0-8.3 x10*3/u L Imm Gran Abs Auto 0.02 0.00-0.03 X10*3/uL Lymphocytes Absolute Auto 1.9 1.2-4.9 X10*3/u L Monocytes Absolute Auto 0.6 0.1-1.2 X10*3/uL Eosinophils Absolute Auto 0.1 0.0-0.4 X10*3/u L Basophils Absolute Auto 0.1 0.0-0.2 X10*3/uL NRBC Abs Auto 0.000 0.0-0.012 X10*3/uL Comprehensive [place]. Panel Fa st Reviewed date:12/30/2024 04:45:02 PM Interpretation: Performing Lab:[facility], [address] [place] [phone] Notes/Report: Sodium 140 135-145 mmol/L Potassium 4.0 3.3-5.1 mmol/L Chloride 109 96-108 mmol/L Carbon Dioxide 22 22-29 mmol/L Anion Gap 13 12-20 Blood Urea Nitrogen 24 9-16 mg/dL Creatinine 1.93 0.5-1.4 mg/dL Estimated Glomerular Filt Rate 33 Chronic Kidney Disease: Estimated GFR < 60 mL/min/1.73m2 Severe Kidney Disease: Estimated GFR < 15 mL/min/1.73m2 Glucose Fasting 95 60-99 mg/dL Calcium 9.2 8.4-10.2 mg/dL Bilirubin Total 0.5 0.0-1.0 mg/dL Aspartate Amino Transferase 26 5-37 U/L Alanine Aminotransferase 15 0-40 U/L Total Protein 8.0 6.5-8.0 g/dL Albumin Level 4.2 3.5-5.0 g/dL Alkaline Phosphatase 123 39-117 U/L Lipid Panel Reviewed date:12/30/2024 04:37:19 PM Interpretation: Performing Lab:[facility], [address] [place] [phone] Notes/Report: Triglycerides 103 <150 mg/dL Desirable Triglyceride: less than 150 mg/dL Borderline High Triglyceride 150-199 mg/dL High Triglyceride: 200-499 mg/dL Very High Triglyceride: greater than or equal to 5OO mg/dL Cholesterol 223 <200 mg/dL Desirable Cholesterol: less than 200 mg/dL Borderline High Cholesterol: 200-239 mg/dL High Cholesterol: greater than 239 mg/dL LDL Cholesterol Calculated 167 <100 mg/dL Desirable LDL: less than 100 mg/dL Near Optimal/Above Optimal LDL: 110-129 mg/dL Borderline High LDL: 130-159 mg/dL High LDL: 160-189 mg/dL Very High LDL: greater than or equal to 190 mg/dL HDL Cholesterol 36 >40 mg/dL Desirable HDL: greater than 40 mg/dL Note: This HDL assay may give artificially low results in patients with liver disease. PSA,Total (Free>4and<10) Reviewed date:12/30/2024 04:36:44 PM Interpretation: Performing Lab:[facility], [address] [place] [phone] Notes/Report: PSA,Total (Free>4and<10) 1.20 0.00-4.00 ng/mL A Free PSA was not [...] (CMIA) UA ClnCatch+Micro w/rflx Cul t Reviewed date:12/30/2024 04:42:47 PM Interpretation: Performing Lab:[address] [phone] Notes/Report: Urine, Clean Catch Color Urine Yellow Appearance Urine Clear PH 6.0 5.0-9.0 Glucose Urine UA Negative Negative mg/dL Urine Blood Small (1+) Negative Specific [place] - Urine 1.010 1.005-1.025 Urine Protein Trace Neg-Trace mg/dL Urine Ketones Negative Negative mg/dL Nitrite Urine Negative Negative Leukocyte Esterase Urine Negative Negative RBC Urine 0-2 0-2 /HPF WBC Urine 0-5 0-5 /HPF Squamous Epithelial Cell Urine 0-2 0-2 /HPF Bacteria Urine None Seen None Seen Hyaline Casts Urine 0-2 0-2 /LPF REASON FOR VISIT yearly fasting labs Encounters Encounter Location Date Provider Diagnosis Silver Isaacs MD [address] [place], [place] [phone] 12/30/2024 Silver Isaacs Blood tests for routine general physical examination Z00.00 and Essential hypertension I10 Assessments Encounter Date Diagnosis (ICD Code) Assessment Notes Treatment Notes Treatment Clinical Notes Section Notes 12/30/2024 Blood tests for routine general physical examination (ICD-10 - Z00.00) 12/30/2024 Essential hypertension (ICD-10 - I10) Plan Of Treatment Next Appt Details Provider Name:Silver hemphill, 07/06/2025 01:45:00 PM, [address] [place] [address], [address], [place], [place], [phone], Provider Name:Silver hemphill, 01/01/2026 08:00:00 AM, [address] [place] [address], Suite [facility], [place], [place], [phone], Provider Name:Silver hemphill, 01/08/2026 01:30:00 PM, [address] [place] [address], Suite [facility], [place], [place], [phone], Progress Notes * Carlin MILTONDOB:1935 ( 89 yo M)Acc No.[id number]:12/30/2024 Progress Note Patient: Carlin TORREZ Provider: Leigh Ann Isaacs MD :1935 A ge:89 Y S ex:Male Date:12/30/2024 Address:[address] [place], [place] [phone] Subjective: * Chief Complaints: * 1 . Yearly fasting labs. * Medical History: Objective: * Vitals: Assessment: * Assessment: 1. B lood tests for routine general physical examination - Z00.00 (Primary) 2 .?Essential hypertension - I10 Plan: * Treatment: 2. E ssential hypertension L AB: Complete Blood Count Auto Diff (Collection Date & Time - 12/30/2024 12:19 PM) L AB: Comprehensive [place]. Panel Fast (Collection Date & Time - 12/30/2024 12:19 PM) L AB: Lipid Panel (Collection Date & Time - 12/30/2024 12:19 PM) L AB: PSA,Total (Free>4and<10) (Collection Date & Time - 12/30/2024 12:19 PM) L AB: UA ClnCatch+Micro w/rflx Cult (Collection Date & Time - 12/30/2024 12:11 PM) * * The named appointment provid er may or may not be the originator of this progress note, and it is not deemed complete until electronically signed by the appointment provider. Sign off status: Pending * Provider: Leigh Ann Isaacs MD Date: 0 12/30/2024 Generated for Barbara ryder/Cindy/Steveitting on: 1 05/25/2024 06:05 PM EST
--- OUTSIDE RECORDS SUMMARY | 2025-01-06 08:30 | XMS_ITS ---
Author Organization Silver Isaacs MD Address [address] [place], [place] [phone] Care Team Providers Care Budget Record Clerk Name Role Phone Silver Isaacs Primary Care Provider Allergies No Known Allergies Results Component Value Reference Range Notes Occult Blood, Stool, Guaiac Reviewed date:01/06/2025 01:45:26 PM Interpretation:Negative Performing Lab: Notes/Report: Negative Occult Blood, Stool, Guaiac Neg Urinalysis and Microscopic Reviewed date:01/08/2025 02:43:17 PM Interpretation: Performing Lab:[facility], [address] [place] [id number] Notes/Report: Color Urine Yellow Appearance Urine Clear PH 6.0 5.0-9.0 Glucose Urine UA Negative Negative mg/dL Urine Blood Small (1+) Negative Specific [place] - Urine 1.015 1.005-1.025 Urine Protein 30 (1+) Neg-Trace mg/dL Urine Ketones Negative Negative mg/dL Nitrite Urine Negative Negative Leukocyte Esterase Urine Negative Negative RBC Urine 3-5 0-2 /HPF WBC Urine 0-5 0-5 /HPF Squamous Epithelial Cell Urine 0-2 0-2 /HPF Bacteria Urine None Seen None Seen Hyaline Casts Urine 0-2 0-2 /LPF REASON FOR VISIT annual visit Medications Medication SIG (Take, Route, Frequency, Duration) Notes Start Date End Date Status Tamsulosin HCl 0.4 MG 1 capsule Orally O nce a day for 30 days Not-Taking Acetaminophen 325 MG 3 tablet as needed Orally every 6 hrs Not-Taking Metoprolol Succinate ER 25 MG 0.5 tablet Orally twice a day Not-Taking Eliquis 2.5 MG 1 tablet Orally Twic e a day for 90 days Active amLODIPine Besylate 5 MG 1 tablet Orally Once a day for 90 days Active Aspir-Low 81 MG 1 tablet Orally Once a day for 30 day(s) Active Social History Tobacco Use: Social History Observation [...] ast year? No Points 0 Interpretation Negative Vital Signs Blood pressure systolic 112 mm Hg 01/07/20 25 Blood pressure diastolic 64 mm Hg 025 Height 68 in 01/06/2025 Weight 203 lbs 01/06/2025 BMI 30.86 kg/m2 01/06/2025 weight is up 2 pounds since 07-11-24 Encounters Encounter Location Date Provider Diagnosis Silver Isaacs MD [address] [place] [address] [place] [phone] 01/06/2025 Silver Isaacs Annual physical exam Z00.00 ; 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 I26.92 ; Essential hypertension I10 ; Hematuria R31.9 ; Colon cancer screening Z12.11 and Depression screening Z13.31 Assessments Encounter Date Diagnosis (ICD Code) Assessment Notes Treatment Notes Treatment Clinical Notes Section Notes 01/06/2025 Annual physical exam (ICD-10 - Z00.00) labs reviewed and discussed with patient 01/06/2025 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 (ICD-10 - I26.92) using anticoagulants , stable, will contnue to monitor 01/06/2025 Essential hypertension (ICD-10 - I10) well controlled, will continue current regiment and will continue to monitor 01/06/2025 Hematuria (ICD-10 - R31.9) pending labs 01/06/2025 Colon cancer screening (ICD-10 - Z12.11) guaiac negative 01/06/2025 Depression screening (ICD-10 - Z13.31) negative screen Plan Of Treatment Treatment Notes Assessment Notes Annual physical exam labs reviewed and d iscussed with patient Acute saddle pulmonary embol ism without acute cor pulmonale using anticoagulants, stable, will contnue to monitor Essential hypertension well controlled, will continue current regiment and will continue to monitor Hematuria pending labs Colon cancer screening guaiac negative Depression screening negative screen Next Appt Details Follow Up: 6 Months, Reason: Provider Name:Silver Lopez ier, 07/06/2025 01:45:00 PM, [address], [address], [place], [place], [phone], Provider Name:Silver Ian Jessica ier, 01/01/2026 08:00:00 AM, [address] [place] [address] Drive, Suite [facility], [place], [place], [phone], Provider Name:Silverkinjal Lopez ier, 01/08/2026 01:30:00 PM, [address] [place] [address], Suite [facility], [place], [place], [phone], Progress Notes * SHANEL MontyjhonatanDOB:1935 ( 89 yo M)Acc No.[id number]:01/06/2025 Progress Notes Patient: Carlin TORREZ Provider: Leigh Ann Isaacs MD :1935 A ge:89 Y S ex:Male Date:01/06/2025 Address:[address] [place], [place] [phone] Subjective: * Chief Complaints: * A nnual visit * HPI: D epression Screening: PHQ-9 L ittle interest or pleasure in doing things N ot at all, F eeling down, depressed, or hopeless N ot at all, T rouble falling or staying asleep, or sleeping too much N ot at all, F eeling tired or having little energy N ot at all, P oor appetite or overeating N ot at all, F eeling bad about yourself or that you are a failure, or have let yourself or your family down N ot at all, T rouble concentrating on things, such as reading the newspaper or watching television N ot at all, M oving or speaking so slowly that other people could have noticed; or the opposite, being so fidgety or restless that you have been moving around a lot more than usual N ot at all, T houghts that you would be better off or of hurting yourself in some way N ot at all, T otal Score 0 . I nterpretation and Intervention D epression Screening Findings N egative, F ollow-Up for Depression : review of PHQ-9 found negative result, no follow-up needed. C ommunication Needs: Communication Needs D oes the patient have a hearing impairment N o, D oes the patient have a vision impairment? Y es, I f yes, what is the vision impairment? G lasses, D oes the patient have a cognition impairment? N o. F all Risk: History H ave you had any falls with injury in the past year? N o, H ave you had two or more falls in the past year? N o. S LAURI Questions: SDOH Questions I n the past year have you been worried about losing housing? N o, I n the past year have you or any family members you live with been unable to get any of the following when it was really needed? Check all that apply: N one. S ymptom(s): patient is a 89 yo male here for annual visit with review of recent labs and follow up of chronic issues. d rop foot is making his walking difficult AFO brace bothers him and puts his foot to sleep. * ROS: G eneral/Constitutional: Change in appetite d enies. C hills d enies. F ever d enies. O phthalmologic: Blurred vision d enies. D ischarge d enies. P ain d enies. E NT: Decreased hearing d enies. S ore throat d enies.?Swollen glands d enies. E ndocrine: Cold intolerance d enies. E xcessive thirst d enies. H eat intolerance d enies. W eight loss d enies. R espiratory: Cough d enies. S hortness of breath at rest d enies. S hortness of breath with exertion d enies. W heezing d enies. C ardiovascular: Chest pain at rest d enies. C hest pain with exertion?denies. I rregular heartbeat d enies. S hortness of breath d enies. ? G astrointestinal: Abdominal pain d enies. C hange in bowel habits d enies. D iarrhea d enies. N ausea d enies. R ectal bleeding d enies. V omiting d enies . G enitourinary: Blood in urine d enies. D ifficulty urinating d enies. F requent urination d enies. M usculoskeletal: Painful joints d enies. W eakness d enies. ? S kin: Dry skin d enies. I tching d enies. D enies?Mole(s), changes in moles, new moles or any lesions of concern. D enies P hotosensitivity. R maria c d enies. N eurologic: Dizziness d enies. F ainting d enies. H eadache?denies. * Medical History: * Surgical History: * Hospitalization/Major Diagno stic Procedure: * Family History: F ather: 68 yrs. M other: 80 yrs. 1 brother(s) . 4 son(s) , 1 daughter(s) . . Father ? Mother- ??? 1 sister Cancer 1 deceasd brother Motorcyle accident 46, Denies mental health/substance abuse family history, Denies mental health/substance abuse family history. * Social History: T obacco Use: T obacco Use/Smoking P atient is a n onsmoker, A dditional Findings: Tobacco Non-User C urrent non-smoker, currently using no form of tobacco. D rugs/Alcohol: A lcohol Screen D id you have a drink containing alcohol in the past year? N o, P oints 0 , I nterpretation N egative. M iscellaneous: C affeine: no. Children: yes. Community involvements: no. Exercise: no. Housing: owning. Living with: spouse. Marital status: . Pets: none, 1 cat. * Medications: T akingAspir-Low 81 MG Tablet Delayed Release 1 tablet Orally Once a day amLODIPine Besylate 5 MG Tablet 1 tablet Orally Once a day Eliquis 2.5 MG Tablet 1 tablet Orally Twice a day Taking Aspir-Low 81 MG Tablet Delayed Release 1 tablet Orally Once a day Taking amLODIPine Besylate 5 MG [...] Objective: * Vitals: H t: 68, Wt: 203, BMI:30.86, BP:112/64, Wt-k.08. weight is up 2 pounds since 07-11-24. * P ast Orders: L ab:UA ClnCatch+Micro w/rflx Cult (Order Date - 12/30/2024) (Collection Date & Time - 12/30/2024 12:11 PM) Value Reference Range Color Urine Yellow - Appearance Urine Clear - PH 6.0 5.0-9.0 - Glucose Urine UA Negative Negative - mg/dL Urine Blood Small (1+) A Negative - Specific [place] - Urine 1.010 1.005-1.025 - Urine Protein Trace Neg-Trace - mg/dL Urine Ketones Negative Negative - mg/dL Nitrite Urine Negative Negative - Leukocyte Esterase Urine Negative Negative - RBC Urine 0-2 0-2 - /HPF WBC Urine 0-5 0-5 - /HPF Squamous Epithelial Cell Urine 0-2 0-2 - /HP F Bacteria Urine None Seen None Seen - Hyaline Casts Urine 0-2 0-2 - /LPF L ab:Complete Blood Count Auto Diff (Order Date - 12/30/2024) (Collection Date & Time - 12/30/2024 12:19 PM) Value Reference Range White Blood Count 7.0 4.8-10.8 - X10*3/uL Red Blood Count 4.03 L 4.60-5.80 - X10*6/uL Hemoglobin 12.5 L 14.0-18.0 - g/dl Hematocrit 37.9 L 42.0-52.0 - % Mean Corpuscular Volume 94.0 80.0-98.0 - fL Mean Corpuscular Hemoglobin 31.0 27.0-33.0 - pg Mean Corpuscular HGB Conc 33.0 31.0-36.0 - g/ dl Red Cell Distribution Width 13.9 11.0-16.0 - % Platelet Count 208 160-400 - X10*3/uL Mean Platelet Volume 10.5 9.4-12.4 - fL Neutrophils Percent Auto 61.0 45-73 - % Imm Gran Pct Auto 0.3 0.0-0.4 - % Lymphocytes Percent Auto 27.8 20-40 - % Monocytes Percent Auto 8.6 2-11 - % Eosinophils Percent Auto 1.3 0-4 - % Basophils Percent Auto 1.0 0-2 - % NRBC Pct Auto 0.0 0.0-0.2 - /100WBC Neutrophils Absolute Auto 4.2 2.0-8.3 - x10* 3/uL Imm Gran Abs Auto 0.02 0.00-0.03 - X10*3/uL Lymphocytes Absolute Auto 1.9 1.2-4.9 - X10* 3/uL Monocytes Absolute Auto 0.6 0.1-1.2 - X10*3/ uL Eosinophils Absolute Auto 0.1 0.0-0.4 - X10* 3/uL Basophils Absolute Auto 0.1 0.0-0.2 - X10*3/ uL NRBC Abs Auto 0.000 0.0-0.012 - X10*3/uL L ab:Comprehensive [place]. Panel Fast (Order Date - 12/30/2024) (Collection Date & Time - 12/30/2024 12:19 PM) Value Reference Range Sodium 140 135-145 - mmol/L Bilirubin Total 0.5 0.0-1.0 - mg/dL Aspartate Amino Transferase 26 5-37 - U/L Alanine Aminotransferase 15 0-40 - U/L Total Protein 8.0 6.5-8.0 - g/dL Albumin Level 4.2 3.5-5.0 - g/dL Alkaline Phosphatase 123 H 39-117 - U/L Potassium 4.0 3.3-5.1 - mmol/L Chloride 109 H 96-108 - mmol/L Carbon Dioxide 22 22-29 - mmol/L Anion Gap 13 12-20 - Blood Urea Nitrogen 24 H 9-16 - mg/dL Creatinine 1.93 H 0.5-1.4 - mg/dL Estimated Glomerular Filt Rate 33 - Glucose Fasting 95 60-99 - mg/dL Calcium 9.2 8.4-10.2 - mg/dL L ab:Lipid Panel (Order Date - 12/30/2024) (Collection Date & Time - 12/30/2024 12:19 PM) Value Reference Range Triglycerides 103 <150 - mg/dL Cholesterol 223 H <200 - mg/dL LDL Cholesterol Calculated 167 H <100 - mg/dL HDL Cholesterol 36 L >40 - mg/dL L ab:PSA,Total (Free>4and<10) (Order Date - 12/30/2024) (Collection Date & Time - 12/30/2024 12:19 PM) Value Reference Range PSA,Total (Free>4and<10) 1.20 0.00-4.00 - ng/ mL * Examination: G eneral Examination: GENERAL APPEARANCE: w ell developed, well nourished, in no acute distress. HEAD: n ormocephalic, atraumatic. EYES: p upils equal, round, reactive to light and accommodation, sclera non-icteric. EARS: n ormal. ORAL CAVITY: m ucosa moist. THROAT: c lear. NECK/THYROID: n katie supple, full range of motion, no cervical lymphadenopathy, no bruits. SKIN: w arm and dry, no suspicious lesions. HEART: r egular rate and rhythm, S1, S2 normal, no murmurs.? LUNGS: c lear to auscultation bilaterally. ABDOMEN: s oft, nontender, nondistended, bowel sounds present, normal, no organomegaly , no masses palpable. RECTAL EXAM: n ormal tone, no external hemorrhoids, no masses palpable, prostate normal, stool guaiac negative. MALE GENITOURINARY: n o testicular mass, testes descended bilaterally. EXTREMITIES: n o clubbing, cyanosis, or edema. NEUROLOGIC: n onfocal, motor strength normal upper and lower extremities, sensory exam intact. Assessment: * Assessment: 1. A nnual physical exam - Z00.00 (Primary) 2 . A cute saddle pulmonary embolism without acute cor pulmonale - I26.92 3 . E ssential hypertension - I10? 4. H ematuria - R31.9 5 . C olon cancer screening - Z12.11 6. D epression screening - Z13.31 Plan: * Treatment: 2. A cute saddle pulmonary embolism without acute cor pulmonale Notes: using anticoagulants, stable, will contnue to monitor 3. E ssential hypertension Notes: well controlled, will continue current regiment and will continue to monitor 4. H ematuria L AB: Urinalysis and Microscopic (Collection Date & Time - 01/06/2025 01:40 PM) Notes: pending labs 5. C olon cancer screening L AB: Occult Blood, Stool, Guaiac (Collection Date & Time - 01/06/2025) N egative Value Reference Range O ccult Blood, Stool, Guaiac Neg Notes: guaiac negative??6.?Depression screening? Notes: negative screen?? * Procedure Codes: 8 2270 TEST FOR BLOOD, FECES * Follow Up: 6 Months * * Sign off status: Completed true * Provider: Leigh Ann Isaacs MD Date: 0 01/06/2025 Generated for Barbara ryder/Cindy/Cristinasmitting on: 1 05/25/2024 06:06 PM EST History and Physical Notes * HPI (History of Present Illness) Category Sub-Category Detail Notes Category Not es Symptom(s) patient is a 89 yo male here for annual visit with review of recent labs and follow up of chronic issues. 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 AFO brace bothers him and puts his foot to sleep Depression Screening PHQ-9 Little inte rest or pleasure in doing things: Not at all Feeling down, depressed, or hopeless: No t at all Trouble falling or staying asleep, or sl eeping too much: Not at all Feeling tired or having little energy: N ot at all Poor appetite or overeating: Not at all Feeling bad about yourself o r that you are a failure, or have let yourself or your family down: Not at all Trouble concentrating on thi ngs, such as reading the newspaper or watching television: Not at all Moving or speaking so slowly that other people could have noticed; or the opposite, being so fidgety or restless that you have been moving around a lot more than usual: Not at all Thoughts that you would be b rosalva off or of hurting yourself in some way: Not at all Total Score: 0 Interpretation and Intervention Depression Nate davenport Findings: Negative Follow-Up for Depression: : review of PH Q-9 found negative result, no follow-up needed SDOH Questions SDOH Questions In the past year have you been worried about losing housing?: No In the past year have you or any family members you live with been unable to get any of the following when it was really needed? Check all that apply:: None Fall Risk History Have you had any falls with injury i n the past year?: No Have you had two or more falls in the year?: No Communication Needs Communication Needs Does the patient have a hearing impairment: No Does the patient have a vision impairmen t?: Yes If yes, what is the vision impairment?: Glasses Does the patient have a cognition impair ment?: No Examination Category Sub-Category Detail Notes Category Not es General Examination GENERAL APPEARANCE: well dev eloped, well nourished, in no acute distress HEAD: normocephalic, atrau matic EYES: pupils equal, round, reactive to light and accommodation, sclera non-icteric EARS: normal THROAT: clear NECK/THYROID: neck supple, full ra nge of motion, no cervical lymphadenopathy, no bruits HEART: regular rate and rhy thm, S1, S2 normal, no murmurs LUNGS: clear to auscultatio n bilaterally ABDOMEN: soft, nontender, non distended, bowel sounds present, normal, no organomegaly , no masses palpable NEUROLOGIC: nonfocal, motor stre ngth normal upper and lower extremities, sensory exam intact SKIN: warm and dry, no jose picious lesions EXTREMITIES: no clubbing, cyanosi s, or edema MALE GENITOURINARY: no testicular mass, testes descended bilaterally RECTAL EXAM: normal tone, no exte rnal hemorrhoids, no masses palpable, prostate normal, stool guaiac negative ORAL CAVITY: mucosa moist
--- OUTSIDE RECORDS SUMMARY | 2025-02-19 05:12 | XMS_ITS ---
Author Organization [facility] MD Address [address] [place] [address] [place] [phone] Care Team Providers Care Area Intelligence Technician Name Role Phone Silver Isaacs Primary Care Provider REASON FOR VISIT Jast a FYI/ bleeding rectal Encounters Encounter Location Date Provider Diagnosis Silver Isaacs MD [address] [place] [address] [place] [phone] 02/19/2025 Silver Isaacs Plan Of Treatment Next Appt Details Provider Name:Silver hemphill, 07/06/2025 01:45:00 PM, [address] [place] [address], Suite [facility], [place], [place], [phone], Provider Name:Silver hemphill, 01/01/2026 08:00:00 AM, [address] [place] [address], Suite [facility], [place], [place], [phone], Provider Name:Silver hemphill, 01/08/2026 01:30:00 PM, [address] [place] [address], Suite [facility], [place], [place], [phone], Progress Notes * Carlin MILTONDOB:1935 ( 89 yo M)Acc No.[id number]:02/19/2025 Patient: Carlin TORREZ :1935 A ge:89 Y S ex:Male Address:[address] [place] [address] [place], [address] * true * Date: Generated for Printi ng/Faxing/eTransmitting on: 05/25/2024 06:05 PM EST
--- OUTSIDE RECORDS SUMMARY | 2025-02-24 03:01 | XMS_ITS ---
Author Organization Silver Isaacs MD Address [address] [place] [address] [place] [phone] Care Team Providers Care Team Manager Name Role Phone Silver Isaacs Primary Care Provider [phone] REASON FOR VISIT ER visit rec'd Encounters Encounter Location Date Provider Diagnosis Silver Isaacs MD [address] [place] [address] [place] [phone] 02/24/2025 Silver Isaacs Plan Of Treatment Next Appt Details Provider Name:Silver hemphill, 07/06/2025 01:45:00 PM, [address] [place] [address], Suite [facility], [place], [place], [phone], Provider Name:Silver hemphill, 01/01/2026 08:00:00 AM, [address] [place] [address], [place] [address], [place], [place], [phone], Provider Name:Silver hemphill, 01/08/2026 01:30:00 PM, [address] [place] [address], [place] [address], [place], [place], [phone], Progress Notes * Carlin MILTONDOB:1935 ( 89 yo M)Acc No.[id number]:02/24/2025 Patient: Carlin TORREZ :1935 A ge:89 Y S ex:Male Address:[address] [place] [address] [place], [address] * true * Date: Generated for Printi ng/Faxing/eTransmitting on: 05/25/2024 06:06 PM EST
--- NOTE | 2025-03-25 14:40 | MHC.OFFVIS ---
Intake Visit Reasons: microscopic Hematuria Intake Note: New Patient is present for Microscopic Hematuria Urology Med: None Antibiotic Allergy: None Blood Thinner: Eliquis 12/30/2024 PSA- 1.20 Sign Writer Letterer Or Painter Required: No Hand Dry Cleaner: Hand Dry Cleaner Present Accompanied by: Spouse Allergies No Known Allergies Allergy (Verified 03/24/25 10:11) HPI Comments Details: Cathy is a pleasant male. [facility] a [facility]. He is seen for the following urologic conditions - microscopic hematuria On Eliquis CT performed no abnormalities upper tract imaging No prior evaluation Plan cystoscopy [facility] Medical History Osteoarthritis of left hand Memory changes History of cardiac pacemaker Enlargement of abdominal aorta Pulmonary embolism Lumbar disc disease Hematuria Essential (primary) hypertension 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 History of syncope Sick sinus syndrome Normally functioning cardiac pacemaker present Surgical History History of permanent cardiac pacemaker placement Family History Father No problems noted. Mother No problems noted. Social History Housing: House Patient Tobacco Use Status: Former Tobacco user e-Cigarette/Vaping Use: Never Used Second Hand Smoke Exposure: No service: Yes Current occupational status: retired Current occupational exposures/hazards: No Cognitive needs: No Hearing needs: No Vision needs: No Review of Systems Const Denies chills and Denies fever(s) Card Reports no additional complaints and Denies syncope Resp Denies cough GI Denies abdominal pain and Denies heartburn Reports as per HPI and Denies change in libido Neuro Denies syncope Psych Denies change in libido Endo Denies change in libido Physical Exam Const General: cooperative, healthy appearing, comfortable and no acute distress Orientation/consciousness: patient oriented x3 HEENT Face and sinus: Yes normal facial exam Mouth: moist mucous membranes Neck Neck: Yes normal visual inspection, Yes full ROM and Yes trachea midline Chest Chest palpation & inspection: normal inspection of the chest Resp Effort & Inspection: normal respiratory effort, able to speak in complete sentences and no respiratory distress GI Inspection: Yes normal to inspection Back/Spine/Pelvis Cervical Spine: normal cervical lordosis Thoracic/Lumbar Spine: thoracic and lumbar spine normal to inspection Skin General skin exam: no rashes or lesions noted Neuro General: patient oriented x3, gait normal, tone normal and moves all extremities Extrem General: Yes normal to inspection and Yes capillary refill normal Assessment & Plan Assessment & Plan (1) Microscopic hematuria: Code(s): R31.29 - Other microscopic hematuria Category: Medical Plan Office cystoscopy Orders: Orders Urine Cytology Today R31.29 - Other microscopic hematuria Patient Instructions: This note is constructed using voice recognition software. While every effort has been made to ensure accuracy steam clean machine operator errors may have been included. Imaging studies, laboratory and physical exam results were discussed and reviewed in detail. No major barriers to patient understanding were identified. An opportunity to ask questions regarding the treatment plan was provided. All questions were answered. The patient expressed understanding and agreement with the above treatment plan. The patient is aware they should contact our office by phone for worsening of their current condition or the appearance of new urologic symptoms. Compliance is encouraged with any medications and followup testing that is ordered. It is a privilege to participate in the urologic care of your patient. If you have any questions or concerns regarding treatment for the above conditions, or other urologic issues, please do not hesitate to contact me. The office telephone contact is [phone]. Sincerely, Dr Nav Maldonado MD, [facility] - Urology Compassionate Specialist Care for the Genitourinary System Coding Level of Care Code New Pt Level 3 (54239) Diagnoses Microscopic hematuria R31.29
--- OUTSIDE RECORDS SUMMARY | 2025-03-25 18:05 | XMS_ITS | Encounter Summary ---
Author Organization [facility] Address [address] [facility] [address] [place] [address] Phone Care Team Providers Care Lot Worker Name Role Phone Corey Sandoval MD Primary Care Provider + [phone] Reason for Referral * Outpatient Procedure - Closed Specialty Diagnoses / Procedures Referred By Contac t Referred To Contact Radiology Diagnoses History of pulmonary embolism Enlargement of abdominal aorta Procedures US Aorta Duplex Complete Silver Isaasc MD [address] [place] [address] Dr STEPHENS [address] [place] [address] Phone: tel: fax: Referral ID Status Reason Start Date Expiration Date Visits Re quested Visits Authorized [id number] Closed 01/01/2024 12/31/2024 1 1 * Outpatient Procedure - Closed Specialty Diagnoses / Procedures Referred By Contac t Referred To Contact Radiology Diagnoses History of DVT (deep vein thrombosis) History of pulmonary embolism Procedures US Lower Extremity Veins Duplex (Left) Silver Isaacs MD [address] [place] [address] Dr STEPHENS [address] [place] [address] Phone: tel: fax: Referral ID Status Reason Start Date Expiration Date Visits Re quested Visits Authorized [id number] Closed 01/01/2024 12/31/2024 1 1 Encounter Details Date Type Department Care Team (Late st Contact Info) Description 01/01/2024 Transcribe Orders Virtual Department [address] [place] [address] Silver Isaacs MD [address] [place] [address] [place] [address] History of DVT (deep vein thrombosis) (Primary [...] initiated on 01/15/2024 9:15 AM, Message ID [id number]. ATTESTATION: I, Dr. Bola Payton as teaching [...] was initiated on 01/15/2024 9:15 AM, MessageID [id number]. ATTESTATION: I, Dr. Bola Payton as teaching [...] embolism documented in this encounter Care Teams Lot Worker Relationship Specialty Start Date End Date Corey Sandoval MD [address] [place] [phone] [email or web address] PCP - General Internal Medicine 06/08/20 documented as of this encounter Additional Source Comments The information contained in this document represents components of the legal health record. It is not the complete legal health record.[facility]
--- OUTSIDE RECORDS SUMMARY | 2025-03-25 18:06 | XMS_ITS | Encounter Summary ---
Author Organization [facility] Address [address] [facility] [address] [place] [address] Phone Care Team Providers Care Cloth Washer Operator Name Role Phone Corey Sandoval MD Primary Care Provider [phone] Encounter Details Date Type Department Care Team ([facility] Contact Info) Description 09/02/2021 Procedure Pass Echo Lab [address] [place] [address] Social History Tobacco Use Types Packs/Day Years [...] documented as of this encounter Care Teams Cloth Washer Operator Relationship Specialty Start Date End Date Corey Sandoval MD [address] [place] [address] [email or web address] PCP - General Internal Medicine 06/08/20 documented as of this encounter Additional Source Comments The information contained in this document represents components of the legal health record. It is not the complete legal health record.[facility]
--- OUTSIDE RECORDS SUMMARY | 2025-03-25 18:06 | XMS_ITS | Patient Health Record ---
Author Organization Silver Isaacs MD Address [address] [place], [place] [address] Care Team Providers Care Hospitality Host Name Role Phone Silver Isaacs Primary Care Provider Allergies No Known Allergies Results Component Value Reference Range Notes Complete Blood Count Auto Di ff Reviewed date:06/24/2024 12:45:13 PM Interpretation: Performing Lab:[facility], [address] [place] [phone] Notes/Report: White Blood Count 5.9 4.8-10.8 X10*3/uL [...] NRBC Abs Auto 0.000 0.0-0.012 X10*3/uL Comprehensive [place]. Panel [facility] Reviewed date:06/24/2024 12:52:45 PM Interpretation: Performing Lab:[facility], [address] [place] [phone] Notes/Report: Sodium 143 135-145 mmol/L Potassium 3.8 [...] Microscopic Reviewed date:01/08/2025 02:43:17 PM Interpretation: Performing Lab:[facility], [address] [place] [phone] Notes/Report: Color Urine Yellow Appearance Urine Clear PH 6.0 5.0-9.0 Glucose Urine UA Negative Negative mg/dL Urine Blood Small (1+) Negative Specific [place] - Urine 1.015 1.005-1.025 Urine Protein 30 (1+) Neg-Trace mg/dL Urine Ketones Negative Negative mg/dL Nitrite Urine Negative Negative Leukocyte Esterase Urine Negative Negative RBC Urine 3-5 0-2 /HPF WBC Urine 0-5 0-5 /HPF Squamous Epithelial Cell Urine 0-2 0-2 /HPF Bacteria Urine None Seen None Seen Hyaline Casts Urine 0-2 0-2 /LPF Complete Blood Count Auto Di ff Reviewed date:03/24/2025 06:38:42 PM Interpretation: Performing Lab:[facility], [address] [place] [phone] Notes/Report: White Blood Count 7.9 4.8-10.8 X10*3/uL Red Blood Count 4.41 4.60-5.80 X10*6/uL Hemoglobin 13.2 14.0-18.0 g/dl Hematocrit 41.4 42.0-52.0 % Mean Corpuscular Volume 93.9 80.0-98.0 fL Mean Corpuscular Hemoglobin 29.9 27.0-33.0 pg Mean Corpuscular HGB Conc 31.9 31.0-36.0 g/dl Red Cell Distribution Width 14.0 11.0-16.0 % Platelet Count 236 160-400 X10*3/uL Mean Platelet Volume 10.8 9.4-12.4 fL Neutrophils Percent Auto 60.3 45-73 % Imm Gran Pct Auto 0.3 0.0-0.4 % Lymphocytes Percent Auto 27.5 20-40 % Monocytes Percent Auto 9.4 2-11 % Eosinophils Percent Auto 1.5 0-4 % Basophils Percent Auto 1.0 0-2 % NRBC Pct Auto 0.0 0.0-0.2 /100WBC Neutrophils Absolute Auto 4.8 2.0-8.3 x10*3/u L Imm Gran Abs Auto 0.02 0.00-0.03 X10*3/uL Lymphocytes Absolute Auto 2.2 1.2-4.9 X10*3/u L Monocytes Absolute Auto 0.7 0.1-1.2 X10*3/uL Eosinophils Absolute Auto 0.1 0.0-0.4 X10*3/u L Basophils Absolute Auto 0.1 0.0-0.2 X10*3/uL NRBC Abs Auto 0.000 0.0-0.012 X10*3/uL Comprehensive [place]. Panel Fa st Reviewed date:03/24/2025 06:34:33 PM Interpretation: Performing Lab:[facility], [address] [place] [phone] Notes/Report: Sodium 142 135-145 mmol/L Potassium 3.8 3.3-5.1 mmol/L Chloride 110 96-108 mmol/L Carbon Dioxide 23 22-29 mmol/L Anion Gap 13 12-20 Blood Urea Nitrogen 23 9-16 mg/dL Creatinine 1.90 0.5-1.4 mg/dL Estimated Glomerular Filt Rate 34 Chronic Kidney Disease: Estimated GFR < 60 mL/min/1.73m2 Severe Kidney Disease: Estimated GFR < 15 mL/min/1.73m2 Glucose Fasting 86 60-99 mg/dL Calcium 9.6 8.4-10.2 mg/dL Bilirubin Total 0.5 0.0-1.0 mg/dL Aspartate Amino Transferase 32 5-37 U/L Alanine Aminotransferase 13 0-40 U/L Total Protein 8.8 6.5-8.0 g/dL Albumin Level 4.5 3.5-5.0 g/dL Alkaline Phosphatase 124 39-117 U/L Lipid Panel Reviewed date:03/24/2025 06:33:47 PM Interpretation: Performing Lab:[facility], [address] [place] [phone] Notes/Report: Triglycerides 99 <150 mg/dL Desirable Triglyceride: less than 150 mg/dL Borderline High Triglyceride 150-199 mg/dL High Triglyceride: 200-499 mg/dL Very High Triglyceride: greater than or equal to 5OO mg/dL Cholesterol 225 <200 mg/dL Desirable Cholesterol: less than 200 mg/dL Borderline High Cholesterol: 200-239 mg/dL High Cholesterol: greater than 239 mg/dL LDL Cholesterol Calculated 166 <100 mg/dL Desirable LDL: less than 100 mg/dL Near Optimal/Above Optimal LDL: 110-129 mg/dL Borderline High LDL: 130-159 mg/dL High LDL: 160-189 mg/dL Very High LDL: greater than or equal to 190 mg/dL HDL Cholesterol 40 >40 mg/dL Desirable HDL: greater than 40 mg/dL Note: This HDL assay may give artificially low results in patients with liver disease. Prostate Specific Antigen Sc r Reviewed date:03/24/2025 06:34:08 PM Interpretation: Performing Lab:[facility], [address] [place] [phone] Notes/Report: Prostate Specific Antigen Scr 1.48 <0.05-4.0 ng/mL PSA methodology: Roman Alinity i Chemiluminescent Microparticle Immunoassay (CMIA) Vitamin B12 and Folate Reviewed date:03/24/2025 06:33:09 PM Interpretation: Performing Lab:[facility], [address] [place] [phone] Notes/Report: Vitamin B12 288 200-900 pg/mL NORMAL 200-900 PG/ML INDETERMINATE 160-199 PG/ML DEFICIENT < 160 PG/ML Folate 7.8 > or = 4.0 ng/mL Reference Values: > or = 4.0 ng/mL < 4.0 ng/mL suggests folate deficiency Methotrexate, aminopterin and folinic acid (leucovorin) are chemotherapeutic agents whose molecular structures are similar to folate; therefore, the Surgical Instruments Inspector folate assay cannot be used for patients using these drugs. Vitamin D 25-OH Total Reviewed date:03/24/2025 06:33:32 PM Interpretation: Performing Lab:[address] [phone] Notes/Report: Vitamin D 25-OH Total 66.9 >30 ng/mL Health Based Reference Values* < 20 ng/mL Deficient 20-30 ng/mL Insufficient > 30 ng/mL Sufficient *Paulette WADDELL. N Engl J Med. 2007;357:266-280 There is no well-established upper level of normal vitamin D levels. Some laboratories use 50 ng/mL as an upper limit of normal. However, toxicity is patient-dependent and may occur at any level. Careful correlation with the patient's presentation is necessary and, if there is concern for vitamin D toxicity, treatment should be considered irrespective of the serum level. Care must be taken in interpreting Vitamin D results from different laboratories and methodologies. Published data demonstrated that results from patients undergoing hemodialysis may show a negative bias when tested with various automated 25-OH vitamin D assays when compared to LC-MS/MS. When testing samples from patients whose predominant form of Vitamin D is Vitamin D2, such as patients receiving Vitamin D2 supplementation, results that are subtherapeutic should be confirmed with another method such as LC-MS/MS. TSH reflex Free T4 Reviewed date:03/24/2025 06:33:57 PM Interpretation: Performing Lab:[facility], [address] [place] [phone] Notes/Report: TSH reflex Free T4 1.99 0.32-4.0 uIU/mL Microalbumin, Random Reviewed date:03/24/2025 06:33:20 PM Interpretation: Performing Lab:[facility], [address] [place] [phone] Notes/Report: Creatinine Urine 105.58 Microalbumin Urine 55.0 Microalbum/Creatinine Ratio Ur 52.0 <30 ug/mg cr Albumin/Creatinine Ratio Reference Ranges: Normal: < 30 ug/mg creatinine Microalbuminuria: 30 - 300 ug/mg creatinine Clinical Albuminuria: > 300 ug/mg creatinine UA ClnCatch+Micro w/rflx Cul t Reviewed date:03/24/2025 06:35:01 PM Interpretation: Performing Lab:[facility], [address] [place] [phone] Notes/Report: [id number] Urine, Clean Catch Color Urine Yellow Appearance Urine Clear PH 6.0 5.0-9.0 Glucose Urine UA Negative Negative mg/dL Urine Blood Trace Negative Specific [place] - Urine 1.015 1.005-1.025 Urine Protein 30 [...] Galdamez 0 01/08/2025 02:42:51 PM >referral info faxed, Siena Galdamez 01/13/2025 08:42:27 AM > info Denice pablo Annette 01/16/2025 03:05:26 PM >was told patient [...] Problem Status W/U Status Risk Notes Problem [id number] Primary osteoarthritis, 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) Active confirmed Problem Disorder of lumbar disc (166627167) Lumbar disc disease (M51.9) Active confirmed Problem 95367500 Essential hypertension (I10) Active confirmed Problem 819052915 History of pulmonary embolism (Z86.711) Active confirmed Problem 625118276 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) Active confirmed Problem 288766918019217 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) Active confirmed Problem 434585520 Memory changes (R41.3) Active confirmed Problem 2851340883608203 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) Active confirmed Problem 650511734 Enlargement of abdominal aorta (I77.89) Active confirmed Problem 61167995 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) Active confirmed Vital Signs Blood pressure diastolic 64 mm Hg 01/06/2025 patsy ght is up 2 pounds since 07-11-24 Height 68 in 01/06/2025 weight is up 2 pounds since 2-28-25 Blood pressure systolic 112 mm Hg 01/06/2025 weig ht is up 2 pounds since 07-11-24 Weight 203 lbs 01/06/2025 weight is up 2 pounds since 07-11-24 BMI 30.86 kg/m2 01/06/2025 weight is up 2 pounds since 07-11-24 Encounters Encounter Location Date Provider Diagnosis Silver Isaacs MD [address] [place] [id number] 01/06/2025 Silver Isaacs Annual physical exam Z00.00 ; 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 I26.92 ; Essential hypertension I10 ; Hematuria R31.9 ; Colon cancer screening Z12.11 and Depression screening Z13.31 Silver Isaacs MD [address] [place] [id number] 06/19/2024 Silver Isaacs Essential hypertension I10 and 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 I26.92 Silver Isaacs MD [address] [place] [id number] 04/24/2024 Silver Isaacs Pararenal abdominal aortic aneurysm (AAA) without rupture I71.41 and Left foot drop M21.372 Silver Isaacs MD [address] [id number] 05/23/2024 Silver Isaacs History of pulmonary embolism Z86.711 ; Pararenal abdominal aortic aneurysm (AAA) without rupture I71.41 ; Memory changes R41.3 and Essential hypertension I10 Silver Isaacs MD [address] [place] [id number] 07/11/2024 Silver Isaacs Essential hypertension I10 ; Lumbar disc disease M51.9 and Pararenal abdominal aortic aneurysm (AAA) without rupture I71.41 Silver Isaacs MD [address] [id number] 06/06/2024 Silver Isaacs 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 I26.92 ; Essential hypertension I10 and Left foot drop M21.372 Silver Isaacs MD [address] [id number] 04/24/2024 Silver Isaacs MD [address] [place] [address] [id number] 05/08/2024 Silver Isaacs MD [address] [place] [address] [id number] 07/28/2024 Silver Isaacs MD [address] [place] [address] [id number] 08/25/2024 Silver Isaacs Essential hypertension I10 and History of pulmonary embolism Z86.711 Silver Isaacs MD [address] [place] [address] [id number] 08/29/2024 Silver Isaacs Essential hypertension I10 and History of pulmonary embolism Z86.711 Silver Isaacs MD [address] [place] [address] [id number] 09/08/2024 Silver Isaacs MD [address] [place] [address] [id number] 02/19/2025 Silver Isa[address] [place] [address] [id number] 02/24/2025 Silver Isaacs Assessments Encounter Date Diagnosis [...] con 06/06/2024 Next Appt Details Provider Name:Silver Lopez ier, 07/06/2025 01:45:00 PM, [address] [facility], [address], [place], [id number], Provider Name:Silver Lopez ier, 01/01/2026 08:00:00 AM, [address] [place] [address], [address], [place], [id number], Provider Name:Silver Lopez ier, 01/08/2026 01:30:00 PM, [address] [place] [address], [address], [place], [id number], Insurance Providers Payer Name Payer Address Payer Phone Subscriber Number Group Number Insured Name Patient Relationship to Insured Coverage Start Date Coverage End Date [employer] PLAN [facility] [address] [place] [phone] [id number] Carlin Milton Self - patient is the insured
--- OUTSIDE RECORDS SUMMARY | 2025-03-25 18:06 | XMS_ITS | Encounter Summary ---
Author Organization [facility] Address [address] [facility] [address] [place] [address] Phone Care Team Providers Care Development Associate Name Role Phone Manjinder Zaidi DO Primary Care Provider [phone] Dante Javier MD Primary Care Provider [phone] Corey Sandoval MD Primary Care Provider [phone] Encounter Details Date Type Department Care Team (Latest Contact Info) Description 03/03/2017 Ancillary [facility] [address] [place] [address] Trav Hernandez MD [address] [place] [address] [email or web address] Diagnosis unknown Social History Tobacco Use [...] today's date. Device Check: Device Type: Pacemaker Second Shift Supervisor:Medtronic Battery: 9 yrs Mode: MVPR LRL/URL: 60/130 BPM AP: 6.3% MAINTENANCE OF WAY SUPERINTENDENT: <1% AMS: None AF burden:None Lead impedances, [...] documented as of this encounter Care Teams Development Associate Relationship Specialty Start Date End Date Manjinder Zaidi DO [email or web address] PCP - General 03/01/17 10/31/17 Dante Javier MD [address] [place] [address], [address] [place] [address] [email or web address] PCP - General Internal Medicine 11/01/17 06/07/20 Corey Sandoval MD [address] [place] [phone] [email or web address] PCP - General Internal Medicine 06/08/20 documented as of this encounter Additional Source Comments The information contained in this document represents components of the legal health record. It is not the complete legal health record.[facility]
--- OUTSIDE RECORDS SUMMARY | 2025-03-25 18:06 | XMS_ITS | Clinical Summary ---
Author Organization [facility] Address [address] [facility] [address] [place] [address] Phone Care Team Providers Care Duplex Trimmer Name Role Phone Corey Sandoval MD Primary [...] 1947 PNEUMOCOCCAL VACCINES (50+ years) (1 of 2 - PCV) 01/21/1955 ZOSTER VACCINES (1 of 2) 01/21/1986 RSV VACCINE (1 - 1-dose 75+ series) 01/21/2011 CREATININE LEVEL 10/21/2024 10/22/2023, , 07/11/2023, Additional history exists POTASSIUM LEVEL 10/21/2024 10/22/2023, 02/01/2024, 07/11/2023, Additional history exists INFLUENZA VACCINE (#1) 2024 COVID-19 VACCINE ( - 2024- season) 2025 HEPATITIS A VACCINES Aged Out [...] this topic Medical Devices Implanted Type Area Medical Doctor Device Identifier Shelf Expiration Date Model / Serial / Lot Medtronic Pacemaker Procedures Procedure Name Priority Date/Time Associated Diagnosis Comments BASIC METABOLIC PANEL (BMP) STAT 10/22/2023 10:05 AM EDT from Last 3 Months or Most Recently Relevant to Health Maintenance Results * (ABNORMAL) Basic metabolic panel (10/22/2023 10:05 AM EDT) SODIUM 141 133 - 146 mmol/L [facility] CHLORIDE 106 96 - 108 mmol/L [facility] POTASSIUM 4.0 3.3 - 5.1 mmol/L [facility] CO2 23 21 - 35 mmol/L [facility] BUN 17 6 - 19 mg/dL [facility] CREATININE 1.40 0.5 - 1.5 mg/dL [facility] GLUCOSE 109(H) 70 - 99 mg/dL [facility] CALCIUM 9.1 8.4 - 10.3 mg/dL [facility] EGFR 49(L) >59 mL/min/1.7 3m2 [facility] Comment:Estimated glomerular filtration rate calculated using the CKD-EPI refit equation. ANION GAP 16 10 - 20 mmol/L [facility] Blood 10/22/2023 10:0 5 AM EDT 10/22/2023 10:08 AM EDT us oRnni Machuca MEDICAL AFFAIRS DIRECTOR LAB BLOOD BKR ORDERABLES Final Result [facility] [address] [place] [address] from Last 3 Months or Most Recently Relevant to Health Maintenance Insurance [employer] [place] [employer] HMO REPLACEMENT [facility] [place] [employer] H[employer] REPLACEMENT [facility] [place] [employer]IC[employer] HMO [place]AC[place] [address] [place] [address] MEDICARE HMO REPLACEMENT [facility] [place] [employer] HMO REPLACEMENT [facility] [place] [employer] HMO REPLACEMENT [facility] [place] [employer] HMO REPLACEMENT [facility] [place] [employer] HMO REPLACEMENT [employer] [place] [employer] H[employer] REPLACEMENT Advance Directives For more information, please contact: [phone] (9AM - 5PM [facility], Sunday-Sunday) Documents on File Type Date Recorded Patient Soaping Machine Back Tender Expl anation Healthcare Proxy 07/13/2023 2:00 PM * Full Code (Latest Code Status on File) Date Activated Date Inactivated Comments 07/10/2023 5:46 PM Question Answer Comments Code Status Confirmed With: Patient * Full Code (Confirmed) Date Activated Date Inactivated Comments 04/02/2018 8:47 AM 04/03/2018 3:58 PM Question Answer Comments Code Status Confirmed With: PatientFamily Care Teams Duplex Trimmer Relationship Specialty Start Date End Date Corey Sandoval MD [address] [place] [address] [email or web address] PCP - General Internal Medicine 06/08/20 Additional Source Comments The information contained in this document represents components of the legal health record. It is not the complete legal health record.[facility]
--- OUTSIDE RECORDS SUMMARY | 2025-03-25 18:06 | XMS_ITS | Patient Health Record ---
[facility] Address [address] [place] [address] Care Team Providers Care Cuprous Chloride Operator Name Role Phone Name Yo BAIG Primary Care Provider Franklyn Muniz Unavailable [phone] Reason For Referral No Information Problems Problem Type SNOMED Code ICD Code Onset Dates Problem Status W/U Status Risk Notes Problem Pain in limb (93786287) Pain in Limb (729.5) Active confirmed Plan Of Treatment Pending Test Test Name Order Date [id number] Destruction, 05-2706/15/2011 [id number] Destruction, 05-2712/13/2011 Insurance Providers Payer Name Payer Address Payer Phone Subscriber Number Group Number Insured Name Patient Relationship to Insured Coverage Start Date Coverage End Date [facility] [address] [facility] [id number] [phone] [id number] Carlin Milton Self - patient is the insured Medical (General) History Medical History History ICD Code chicken pox Surgical History Surgery Date(Month/Year) finger surgery
--- OUTSIDE RECORDS SUMMARY | 2025-03-25 18:06 | XMS_ITS | Clinical Summary ---
Author Organization [facility] Address [address] [place] [address] Care Team Providers Care Cement Block Maker Name Role Phone Silver Isaacs MD Primary [...] Team Description 01/16/2025 1:40 PM EDT Consult [facility] [place] [address] [place] [address] Arabella Michele MD NSVT (nonsustained ventricular tachycardia) [...] PM EDT) Ventricular rate 81 BPM EKG [facility] Atrial rate 81 BPM EKG [facility] P-R interval 178 ms EKG [facility] QRS duration 184 ms EKG [facility] Q-T interval 450 ms EKG [facility] QTC calculation (Bazett) 522 ms EKG [facility] P axis 55 degrees EKG [facility] R axis -83 degrees EKG [facility] T axis 75 degrees EKG [facility] 01/16/2025 1:18 PM EDT Narrative EKG [facility] - 01/16/2025 3:02 PM EDT AV dual-paced rhythm Abnormal ECG No previous ECGs available Confirmed by Arabella Michele MD ([id number]) on 01/16/2025 3:02:16 PM Procedure Note Arabella Michele MD - 01/16/2025 AV dual-paced rhythm Abnormal ECG No previous ECGs available Confirmed by Arabella Michele MD ([id number]) on 01/16/2025 3:02:16 PM us Arabella Michele MD ECG ORDERABLES Final Result [facility] from Last 3 Months Insurance [facility] MEDICARE Care Teams Cement Block Maker Relationship Specialty Start Date End Date Silver Isaacs MD [address] [place] [address] [place] [address] PCP - General Internal Medicine 11/25/24
--- OUTSIDE RECORDS SUMMARY | 2025-03-25 18:06 | XMS_ITS | Encounter Summary ---
Author Organization [facility] Address [address] [facility] [address] [place] [address] Phone Care Team Providers Care Bindery Chief Name Role Phone Corey Sandoval MD Primary Care Provider [phone] Encounter Details Date Type Department Care Team (Late st Contact Info) Description 07/10/2023 Procedure Pass [facility] [address] [place] [address] Social History Tobacco Use Types Packs/Day Years [...] 9:47 AM EST Ajit Means RN * [place] Suicide Severity Rating Scale (Screener/Recent Self-Report) Question [...] documented as of this encounter Care Teams Bindery Chief Relationship Specialty Start Date End Date Corey Sandoval MD [address] [place] [address] [email or web address] PCP - General Internal Medicine 06/08/20 documented as of this encounter Additional Source Comments The information contained in this document represents components of the legal health record. It is not the complete legal health record.[facility]
--- OUTSIDE RECORDS SUMMARY | 2025-03-25 18:06 | XMS_ITS | Encounter Summary ---
Author Organization [facility] Address [address] [facility] [address] [place] [address] Phone Care Team Providers Care Set Rider Name Role Phone Corey Sandoval MD Primary Care Provider [phone] Encounter Details Date Type Department Care Team (Late st Contact Info) Description 07/10/2023 Procedure Pass [facility], Ct Scan - [address] [address] Social History Tobacco Use Types Packs/Day Years [...] 9:47 AM EST Ajit Means RN * [place] Suicide Severity Rating Scale (Screener/Recent Self-Report) Question [...] documented as of this encounter Care Teams Set Rider Relationship Specialty Start Date End Date Corey Sandoval MD [address] [address] [email or web address] PCP - General Internal Medicine 06/08/20 documented as of this encounter Additional Source Comments The information contained in this document represents components of the legal health record. It is not the complete legal health record.[facility]
--- OUTSIDE RECORDS SUMMARY | 2025-03-25 18:07 | XMS_ITS | Encounter Summary ---
Author Organization [facility] Address [address] [facility] [address] [place] [address] Phone Care Team Providers Care Surgeon Chief Name Role Phone Manjinder Zaidi DO Primary Care Provider [phone] Dante Javier MD Primary Care Provider Corey Sandoval MD Primary Care Provider [phone] Encounter Details Date Type Department Care Team (Late st Contact Info) Description 06/28/2017 Ancillary [facility] [address] [place] [address] Trav Hernandez MD [address] [place] [address] [email or web address] Social History Tobacco Use Types Packs/Day Years [...] documented as of this encounter Care Teams Surgeon Chief Relationship Specialty Start Date End Date Manjinder Zaidi DO [email or web address] PCP - General 03/01/17 10/31/17 Dante Javier MD [address] [place] [address], [address] [place] [address] [email or web address] PCP - General Internal Medicine 11/01/17 06/07/20 Corey Sandoval MD [address] [place] [address] [email or web address] PCP - General Internal Medicine 06/08/20 documented as of this encounter Additional Source Comments The information contained in this document represents components of the legal health record. It is not the complete legal health record.[facility]
--- OUTSIDE RECORDS SUMMARY | 2025-03-25 18:07 | XMS_ITS | Encounter Summary ---
Author Organization [facility] Address [address] [facility] [address] [place] [address] Phone Care Team Providers Care Press Offbearer Name Role Phone Manjinder Zaidi DO Primary Care Provider [phone] Dante Javier MD Primary Care Provider [phone] Corey Sandoval MD Primary Care Provider [phone] Encounter Details Date Type Department Care Team (Late st Contact Info) Description 06/28/2017 Ancillary Orders Non-Invasive Cardiology [address] [place] [address] Trav Hernandez MD [address] [place] [address] [email or web address] Sick sinus syndrome Social History Tobacco Use [...] for device SSS. Examination: Device type: pacemaker Training Mgr: MDAdam Thresholds, impedances, and sensing stable. Mode [...] documented as of this encounter Care Teams Press Offbearer Relationship Specialty Start Date End Date Manjinder Zaidi DO PCP - General 03/01/17 10/31/17 Dante Javier MD [address] [place] [address] [address] [place] [address] PCP - General Internal Medicine 11/01/17 06/07/20 Corey Sandoval MD [address] [place] [address] [email or web address] PCP - General Internal Medicine 06/08/20 documented as of this encounter Additional Source Comments The information contained in this document represents components of the legal health record. It is not the complete legal health record.[facility]
--- OUTSIDE RECORDS SUMMARY | 2025-03-25 18:07 | XMS_ITS | Encounter Summary ---
Author Organization [facility] Address [address] [facility] [address] [place] [address] Phone Care Team Providers Care Development Technologist Name Role Phone Dante Javier MD Primary Care Provider [phone] Corey Sandoval MD Primary Care Provider [phone] Encounter Details Date Type Department Care Team (Late st Contact Info) Description 03/18/2018 Ancillary [facility] [address] [place] [address] Trav Hernandez MD [address] [place] [address] [email or web address] Social History Tobacco Use Types Packs/Day Years [...] as of this encounter Care Teams Development Technologist Relationship Specialty Start Date End Date Dante Javier MD [address] [place] [address], [address] [place] [address] [email or web address] PCP - General Internal Medicine 11/01/17 06/07/20 Corey Sandoval MD [address] [place] [address] [email or web address] PCP - General Internal Medicine 06/08/20 documented as of this encounter Additional Source Comments The information contained in this document represents components of the legal health record. It is not the complete legal health record.[facility]
--- OUTSIDE RECORDS SUMMARY | 2025-03-25 18:07 | XMS_ITS | Encounter Summary ---
Author Organization [facility] Address [address] [facility] [address] [place] [address] Phone Care Team Providers Care Legal Financial Specialist Name Role Phone Dante Javier MD Primary Care Provider Corey Sandoval MD Primary Care Provider [phone] Encounter Details Date Type Department Care Team (Late st Contact Info) Description 03/18/2018 Ancillary Orders Non-Invasive Cardiology [address] [place] [address] Trav Hernandez MD [address] [place] [address] [email or web address] Sick sinus syndrome Social History Tobacco [...] * DEVICE CHECK: PPM REMOTE INTERROGATION WITH OPERATIONAL METEOROLOGIST REVIEW (03/19/2018 8:15 AM EST) Narrative Trav Hernandez MD - 03/20/2018 12:34 PM EST Reason for appointment: Remote pacemaker interrogation HPI: Routine 3 month remote pacemaker interrogation. No device related complaints. Indication for device: SSS. Examination: Device type: Pacemaker Playground Official: Medtronic Mode: AAIR-DDDR LRL/UPL: 60/130 bpm Mode [...] documented as of this encounter Care Teams Legal Financial Specialist Relationship Specialty Start Date End Date Dante Javier MD [address] [place] [address], [address] [place] [address] [email or web address] PCP - General Internal Medicine 11/01/17 06/07/20 Corey Sandoval MD [address] [place] [address] [email or web address] PCP - General Internal Medicine 06/08/20 documented as of this encounter Additional Source Comments The information contained in this document represents components of the legal health record. It is not the complete legal health record.[facility]
== END 2025-03-25 15:01 | disposition home or self-care (01) ==
LOC: HO.HUSH 14:39
PROVIDERS: PCP Internal Medicine; Visit Provider Urology
DX: R31.29 Other microscopic hematuria (principal)
CPT/HCPCS: 99203

== ENCOUNTER 2025-03-25 14:38 | Outpatient (REF) | payer MEDICARE, SELFPAY ==
--- OUTSIDE RECORDS SUMMARY | 2025-03-25 18:22 | XMS_ITS | Clinical Summary ---
Author Organization [facility] Address [address] [address] Phone Care Team Providers Care Home Health Provider Name Role Phone Silver Isaasc MD Primary Care Provider Allergies No known [...] patient's age to complete this topic Insurance [facility] Care Teams Home Health Provider Relationship Specialty Start Date End Date Silver Isaacs MD [address] [place] [address] [address] [place], [place] PCP - General Internal Medicine 04/03/24
== END 2025-03-25 14:39 | disposition home or self-care (01) ==
LOC: HO.LAB 14:38
PROVIDERS: PCP Internal Medicine; Visit Provider Urology
DX: R31.29 Other microscopic hematuria (principal)
CPT/HCPCS: 88112; 99202

== ENCOUNTER → 2025-04-08 12:19 | Outpatient (AMB) | payer MEDICARE, SELFPAY ==
--- NOTE | 2025-04-08 12:15 | A.OFFPC_ITS ---
Intake Visit Reasons: labs Intake Note: Carlin presents by phone to go over his most recent lab results. Allergies No Known Allergies Allergy (Verified 04/08/25 12:17) Medication List - Last Reconciled 04/08/25 by Antonio Davis MD amlodipine 5 mg PO DAILY apixaban (Eliquis) 2.5 mg PO BID Tobacco use date assessed: 04/08/25 Dental Screening Dental Screen Date: 04/08/25 Did you have a dental visit in the last 12 months?: Yes Did you have a dental problem in the last 6 months where you did not have access to dental care?: No Was dental information given to patient?: Patient has dentist HPI labs HPI Details 89 y/o male presents to f/u labs via tel emed. Labs drawn 03/24/25. Mild anemia. Creatinine level 1.90 mg/dL. Triglycerides 99. TC 225. LDL 166. HDL 40. Has declined statins before in the past. 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 Mother No problems noted. Social History (Updated 04/08/25 @ 12:18 by Rehana Boland CMA) Housing: House Alcohol intake: former Patient Tobacco Use Status: Former Tobacco user e-Cigarette/Vaping Use: Never Used Second Hand Smoke Exposure: No Use of substances other than those prescribed or required for medical reasons: No service: Yes Current occupational status: retired Current occupational exposures/hazards: No Cognitive needs: No Hearing needs: No Vision needs: No Questionnaire Thrive Questionnaire Date Thrive assessed: 03/24/25 WOLFGANG-7 AMB Questionnaire WOLFGANG-7 Date WOLFGANG - 7 assessed: 03/24/25 Source: Developed by Drs. Julio Benjamin, Fiorella Haney, Vitor Duque and colleagues, with an educational yani from [employer]. Physical exam (Primary Care) Tobacco/Smoking Status: Tobacco use Status Tobacco use date assessed 04/08/25 04/08/25 12:18 Patient Tobacco Use Status Former Tobacco user 04/08/25 12:18 e-Cigarette/Vaping Use Never Used 04/08/25 12:18 Thrive Assessment: Date of Thrive Assessment Date Thrive assessed 03/24/25 04/08/25 12:18 Telehealth Telehealth Telehealth Platform: Telephone Location of provider rendering services: practice address Location of patient: address on file Patient Identification confirmed using: Name, : Yes Telehealth method: voice only Patient verbally consented to treatment: Yes Patient verbally consented to billing insurance company: Yes Patient informed of any privacy concerns related to visit: Yes Minutes spent on Phone/Video with Pt.: 20 Coding Level of Care Code Tele Est Pt Level 3 (40085) Diagnoses Hyperlipidemia E78.5 Mild anemia D64.9 CKD (chronic kidney disease) stage 3, GFR 30-59 ml/min N18.30 Foot drop, left M21.372 Assessment & Plan Assessment & Plan (1) Hyperlipidemia: Code(s): E78.5 - Hyperlipidemia, unspecified Category: Medical Plan: LDL cholesterol essentially unchanged from prior testing. Patient still resistant to starting a medication and wants to again work on lifestyle changes. We did agree that if he does not have a significant improvement in LDL cholesterol that we would start a medication. (2) Mild anemia: Code(s): D64.9 - Anemia, unspecified Category: Medical Plan: Improving Will continue to monitor (3) CKD (chronic kidney disease) stage 3, GFR 30-59 ml/min: Code(s): N18.30 - Chronic kidney disease, stage 3 unspecified Category: Medical Plan: Stage 3b CKD Work on good blood pressure, blood sugar and lipid control. As above, we discussed lipid control and patient is not ready to try medication. Will continue to follow renal function. (4) Foot drop, left: Code(s): M21.372 - Foot drop, left foot Category: Medical Plan: Drop foot with unclear cause He has an appointment with Neurology in June. Orders: Orders Comprehensive [place]. Panel Fast Today N18.30 - Chronic kidney disease, stage 3 unspecified, Z00.00 - Encounter for general adult medical examination without abnormal findings Lipid Panel Today E78.5 - Hyperlipidemia, unspecified, Z00.00 - Encounter for general adult medical examination without abnormal findings
--- OUTSIDE RECORDS SUMMARY | 2025-04-08 15:22 | XMS_ITS | Encounter Summary ---
Author Organization [facility] Address [address] [facility] [address] [place] [address] Phone Care Team Providers Care Retail Security Professional Name Role Phone Corey Sandoval MD Primary Care Provider [phone] Encounter Details Date Type Department Care Team (Late st Contact Info) Description 07/10/2023 Procedure Pass [facility], Ct Scan - [address] [address] Social History Tobacco Use Types Packs/Day Years [...] 9:47 AM EST Ajit Means RN * [place] Suicide Severity Rating Scale (Screener/Recent Self-Report) Question [...] documented as of this encounter Care Teams Retail Security Professional Relationship Specialty Start Date End Date Corey Sandoval MD [address] [address] [email or web address] [facility] system PCP - General Internal Medicine 06/08/20 documented as of this encounter Additional Source Comments The information contained in this document represents components of the legal health record. It is not the complete legal health record.[facility]
--- OUTSIDE RECORDS SUMMARY | 2025-04-08 15:22 | XMS_ITS | Clinical Summary ---
Author Organization [facility] Address [address] [place] [address] Care Team Providers Care Sawdust Machine Operator Name Role Phone Silver Isaacs MD Primary Care Provider [phone] Libby Carlisle Unavailable [phone] Allergies No known active allergies Medications acetaminophen [...] Team Description 01/16/2025 1:40 PM EDT Consult [facility] [place] [address] [place] [address] Arabella Michele MD NSVT (nonsustained ventricular tachycardia) (HCC) (Primary Dx); Mixed hyperlipidemia ; Sick sinus syndrome (HCC); Primary hypertension from Last 3 Months Social History Tobacco Use Types Packs/Day Years Used Date Smoking Tobacco: Never Smokeless Tobacco: Never Tobacco Cessation:Counseling Given: Not Answered Sex and Gender Information Value Date Recorded Sex Assigned at Male 03/30/2025 2:49 PM EST Legal Sex Male 3:26 PM EDT Gender Identity Male 03/30/2025 2:49 PM EST Sexual Orientation Heterosexual (straight) 03/30 2:49 PM EST Last Filed Vital Signs Vital Sign [...] (02/18/2025 12:56 PM EDT) us External Provider MD ALVAREZ AMB PROCEDURES Final Res ult * ECG 12 lead (01/16/2025 1:18 PM EDT) Pathologist [facility] Ventricular rate 81 BPM EKG [facility] Atrial rate 81 BPM EKG [facility] P-R interval 178 ms EKG [facility] QRS duration 184 ms EKG [facility] Q-T interval 450 [facility] QTC calculation (Bazett) 522 ms EKG [facility] P axis 55 degrees EKG [facility] R axis -83 degrees EKG [facility] T axis 75 degrees [facility] 01/16/2025 1:18 PM EDT Narrative EKG [facility] - 01/16/2025 3:02 PM EDT AV dual-paced rhythm Abnormal ECG No previous ECGs available Confirmed by Arabella Michele MD ([id number]) on 01/16/2025 3:02:16 PM Procedure Note Arabella Michele MD - 01/16/2025 AV dual-paced rhythm Abnormal ECG No previous ECGs available Confirmed by Arabella Michele MD ([id number]) on 01/16/2025 3:02:16 PM us Arabella Michele MD ECG ORDERABLES Final Result [facility] from Last 3 Months Insurance [facility] MEDICARE Care Teams Sawdust Machine Operator Relationship Specialty Start Date End Date Silver Isaacs MD [address] [place] [address] [place] [address] PCP - General Internal Medicine 11/25/24 Libby Carlisle PA [address] [place] [address] Physician [facility] 03/30/25
--- OUTSIDE RECORDS SUMMARY | 2025-04-08 15:22 | XMS_ITS | Encounter Summary ---
Author Organization [facility] Address [address] [facility] [address] [place] [address] Phone Care Team Providers Care Spinning Frame Cleaner Name Role Phone Manjinder Zaidi DO Primary Care Provider [phone] Dante Javier MD Primary Care Provider Corey Sandoval MD Primary Care Provider [phone] Encounter Details Date Type Department Care Team (Latest Contact Info) Description 03/03/2017 Ancillary [facility] [address] [place] [address] Trav Hernandez MD [address] [place] [address] [email or web address] Diagnosis unknown Social History Tobacco Use Types [...] today's date. Device Check: Device Type: Pacemaker Business Planner:Medtronic Battery: 9 yrs Mode: MVPR LRL/URL: 60/130 BPM AP: 6.3% MANAGER OF WAREHOUSE: <1% AMS: None AF burden:None Lead impedances, [...] documented as of this encounter Care Teams Spinning Frame Cleaner Relationship Specialty Start Date End Date Manjinder Zaidi DO [email or web address] PCP - General 03/01/17 10/31/17 Dante Javier MD [address] [place] [address], [address] [place] [address] [email or web address] PCP - General Internal Medicine 11/01/17 06/07/20 Corey Sandoval MD [address] [place] [address] [email or web address] PCP - General Internal Medicine 06/08/20 documented as of this encounter Additional Source Comments The information contained in this document represents components of the legal health record. It is not the complete legal health record.[facility]
--- OUTSIDE RECORDS SUMMARY | 2025-04-08 15:22 | XMS_ITS | Encounter Summary ---
Author Organization [facility] Address [address] [facility] [address] [place] [address] Phone Care Team Providers Care Floor And Wall Applier Liquid Name Role Phone Corey Sandoval MD Primary Care Provider [phone] Encounter Details Date Type Department Care Team ([facility] Contact Info) Description 09/02/2021 Procedure Pass Echo [facility] [address] [place] [address] Social History Tobacco Use Types Packs/Day Years [...] documented as of this encounter Care Teams Floor And Wall Applier Liquid Relationship Specialty Start Date End Date Corey Sandoval MD [address] [place] [address] [email or web address] PCP - General Internal Medicine 06/08/20 documented as of this encounter Additional Source Comments The information contained in this document represents components of the legal health record. It is not the complete legal health record.[facility]
--- OUTSIDE RECORDS SUMMARY | 2025-04-08 15:22 | XMS_ITS | Clinical Summary ---
Author Organization [facility] Address [address] [facility] [address] [place] [address] Phone Care Team Providers Care Dispatcher Radioactive Waste Disposal Name Role Phone Corey Sandoval MD Primary [...] Additional history exists POTASSIUM LEVEL 10/21/2024 10/22/2023, 02/2 01/2024, 07/11/2023, Additional history exists INFLUENZA VACCINE (#1) [...] this topic Medical Devices Implanted Type Area Bi Data Modeler Device Identifier Shelf Expiration Date Model / Serial / Lot Medtronic Pacemaker Procedures Procedure Name Priority Date/Time Associated Diagnosis Comments BASIC METABOLIC PANEL (BMP) STAT 10/22/2023 10:05 AM EDT from Last 3 Months or Most Recently Relevant to Health Maintenance Results * (ABNORMAL) Basic metabolic panel (10/22/2023 10:05 AM EDT) SODIUM 141 133 - 146 mmol/L [facility] CHLORIDE 106 96 - 108 mmol/L [facility] POTASSIUM 4.0 3.3 - 5.1 mmol/L [facility] CO2 23 21 - 35 mmol/L [facility] BUN 17 6 - 19 mg/dL [facility] CREATININE 1.40 0.5 - 1.5 mg/dL [facility] GLUCOSE 109(H) 70 - 99 mg/dL [facility] CALCIUM 9.1 8.4 - 10.3 mg/dL [facility] EGFR 49(L) >59 mL/min/1.7 3m2 [facility] Comment:Estimated glomerular filtration rate calculated using the CKD-EPI refit equation. ANION GAP 16 10 - 20 mmol/L [facility] Blood 10/22/2023 10:0 5 AM EDT 10/22/2023 10:08 AM EDT us Ronni Machuca DATA CENTER CONSULTANT LAB BLOOD BKR ORDERABLES Final Result [facility] [address] [place] [address] from Last 3 Months or [...] Advance Directives For more information, please contact: [phone] (9AM - 5PM [facility], Sunday-Sunday) Documents on File Type Date Recorded Patient Kitchen Aide Expl anation Healthcare Proxy 07/13/2023 2:00 PM * Full Code (Latest Code Status on File) Date Activated Date Inactivated Comments 07/10/2023 5:46 PM Question Answer Comments Code Status Confirmed With: Patient * Full Code (Confirmed) Date Activated Date Inactivated Comments 04/02/2018 8:47 AM 04/03/2018 3:58 PM Question Answer Comments Code Status Confirmed With: PatientFamily Care Teams Dispatcher Radioactive Waste Disposal Relationship Specialty Start Date End Date Corey Sandoval MD [address] [place] [address] [email or web address] PCP - General Internal Medicine 06/08/20 Additional Source Comments The information contained in this document represents components of the legal health record. It is not the complete legal health record.[facility]
--- OUTSIDE RECORDS SUMMARY | 2025-04-08 15:22 | XMS_ITS | Encounter Summary ---
Author Organization [facility] Address [address] [facility] [address] [place] [address] Phone Care Team Providers Care Hot Pipe Gauger Name Role Phone Corey Sandoval MD Primary Care Provider + [phone] Reason for Referral * Outpatient Procedure - Closed Specialty Diagnoses / Procedures Referred By Contac t Referred To Contact Radiology Diagnoses History of pulmonary embolism Enlargement of abdominal aorta Procedures US Aorta Duplex Complete Silver Isaacs MD [address] [place] [address] Dr STEPHENS [address] [place] [address] Phone: tel: fax: Referral ID Status Reason Start Date Expiration Date Visits Re quested Visits Authorized [id number] Closed 01/01/2024 12/31/2024 1 1 * Outpatient Procedure - Closed Specialty Diagnoses / Procedures Referred By Contac t Referred To Contact Radiology Diagnoses History of DVT (deep vein thrombosis) History of pulmonary embolism Procedures US Lower Extremity Veins Duplex (Left) Silver Isaacs MD [address] [place] [address] Dr STEPHENS [address] [place] [address] Phone: tel: fax: Referral ID Status Reason Start Date Expiration Date Visits Re quested Visits Authorized [id number] Closed 01/01/2024 12/31/2024 1 1 Encounter Details Date Type Department Care Team (Late st Contact Info) Description 01/01/2024 Transcribe Orders Virtual Department [address] [place] [address] Silver Isaacs MD [address] [place] [address] [place] [address] History of DVT (deep vein thrombosis) (Primary [...] initiated on 01/15/2024 9:15 AM, Message ID [id number]. ATTESTATION: I, Dr. Bola Payton as teaching [...] was initiated on 01/15/2024 9:15 AM, MessageID [id number]. ATTESTATION: I, Dr. Bola Payton as teaching [...] embolism documented in this encounter Care Teams Hot Pipe Gauger Relationship Specialty Start Date End Date Corey Sandoval MD [address] [place] [address] [email or web address] PCP - General Internal Medicine 06/08/20 documented as of this encounter Additional Source Comments The information contained in this document represents components of the legal health record. It is not the complete legal health record.[facility]
--- OUTSIDE RECORDS SUMMARY | 2025-04-08 15:22 | XMS_ITS | Encounter Summary ---
Author Organization [facility] Address [address] [facility] [address] [place] [address] Phone Care Team Providers Care Washing Machine Repairer Name Role Phone Corey Sandoval MD Primary Care Provider [phone] Encounter Details Date Type Department Care Team (Late st Contact Info) Description 07/10/2023 Procedure Pass [facility] [address] [place] [address] Social History Tobacco Use Types Packs/Day Years [...] 9:47 AM EST Ajit Means RN * [place] Suicide Severity Rating Scale (Screener/Recent Self-Report) Question [...] documented as of this encounter Care Teams Washing Machine Repairer Relationship Specialty Start Date End Date Corey Sandoval MD [address] [place] [address] [email or web address] PCP - General Internal Medicine 06/08/20 documented as of this encounter Additional Source Comments The information contained in this document represents components of the legal health record. It is not the complete legal health record.[facility]
--- OUTSIDE RECORDS SUMMARY | 2025-04-08 15:23 | XMS_ITS | Encounter Summary ---
Author Organization [facility] Address [address] [facility] [address] [place] [address] Phone Care Team Providers Care Hha Name Role Phone Dante Javier MD Primary Care Provider [phone] Corey Sandoval MD Primary Care Provider [phone] Encounter Details Date Type Department Care Team (Late st Contact Info) Description 03/18/2018 Ancillary Orders Non-Invasive Cardiology [address] [place] [address] Trav Hernandez MD [address] [place] [address] [email or web address] Sick sinus syndrome Social History Tobacco [...] * DEVICE CHECK: PPM REMOTE INTERROGATION WITH ROLL OUT MANAGER REVIEW (03/19/2018 8:15 AM EST) Narrative Trav Hernandez MD - 03/20/2018 12:34 PM EST Reason for appointment: Remote pacemaker interrogation HPI: Routine 3 month remote pacemaker interrogation. No device related complaints. Indication for device: SSS. Examination: Device type: Pacemaker Clay Roaster: [employer] Mode: AAIR-DDDR LRL/UPL: 60/130 bpm Mode [...] documented as of this encounter Care Teams Hha Relationship Specialty Start Date End Date Dante Javier MD [address] [place] [address], [address] [place] [address] [email or web address] PCP - General Internal Medicine 11/01/17 06/07/20 Corey Sandoval MD [address] [place] [address] [email or web address] PCP - General Internal Medicine 06/08/20 documented as of this encounter Additional Source Comments The information contained in this document represents components of the legal health record. It is not the complete legal health record.[facility]
--- OUTSIDE RECORDS SUMMARY | 2025-04-08 15:23 | XMS_ITS | Encounter Summary ---
Author Organization [facility] Address [address] [facility] [address] [place] [address] Phone Care Team Providers Care Svp Research And Strategic Analysis Name Role Phone Manjinder Zaidi DO Primary Care Provider [phone] Dante Javier MD Primary Care Provider Corey Sandoval MD Primary Care Provider [phone] Encounter Details Date Type Department Care Team (Late st Contact Info) Description 06/28/2017 Ancillary [facility] [address] [place] [address] Trav Hernandez MD [address] [place] [address] [email or web address] Social History Tobacco Use Types Packs/Day Years [...] documented as of this encounter Care Teams Svp Research And Strategic Analysis Relationship Specialty Start Date End Date Manjinder Zaidi DO [email or web address] PCP - General 03/01/17 10/31/17 Dante Javier MD [address] [place] [address], [address] [place] [address] [email or web address] PCP - General Internal Medicine 11/01/17 06/07/20 Corey Sandoval MD [address] [place] [address] [email or web address] PCP - General Internal Medicine 06/08/20 documented as of this encounter Additional Source Comments The information contained in this document represents components of the legal health record. It is not the complete legal health record.[facility]
--- OUTSIDE RECORDS SUMMARY | 2025-04-08 15:23 | XMS_ITS | Encounter Summary ---
Author Organization [facility] Address [address] [facility] [address] [place] [address] Phone Care Team Providers Care Celery Cutter Name Role Phone Dante Javier MD Primary Care Provider [phone] Corey Sandoval MD Primary Care Provider [phone] Encounter Details Date Type Department Care Team (Late st Contact Info) Description 03/18/2018 Ancillary [facility] [address] [place] [address] Trav Hernandez MD [address] [place] [address] [email or web address] Social History Tobacco Use Types Packs/Day Years [...] documented as of this encounter Care Teams Celery Cutter Relationship Specialty Start Date End Date Dante Javier MD [address] [place] [address], [address] [place] [address] [email or web address] PCP - General Internal Medicine 11/01/17 06/07/20 Corey Sandoval MD [address] [place] [address] [email or web address] PCP - General Internal Medicine 06/08/20 documented as of this encounter Additional Source Comments The information contained in this document represents components of the legal health record. It is not the complete legal health record.[facility]
--- OUTSIDE RECORDS SUMMARY | 2025-04-08 15:23 | XMS_ITS | Encounter Summary ---
Author Organization [facility] Address [address] [facility] [address] [place] [address] Phone Care Team Providers Care Major Gifts Director Name Role Phone Manjinder Zaidi DO Primary Care Provider [phone] Dante Javier MD Primary Care Provider Corey Sandoval MD Primary Care Provider + [phone] Encounter Details Date Type Department Care Team (Late st Contact Info) Description 06/28/2017 Ancillary Orders Non-Invasive Cardiology [address] [place] [address] Trav Hernandez MD [address] [place] [address] [email or web address] Sick sinus syndrome Social History Tobacco Use [...] for device SSS. Examination: Device type: pacemaker Honing Machine Operator Semiautomatic: MDAdam Thresholds, impedances, and sensing stable. Mode [...] documented as of this encounter Care Teams Major Gifts Director Relationship Specialty Start Date End Date Manjinder Zaidi DO PCP - General 03/01/17 10/31/17 Dante Javier MD [address] [place] [address] [address] [place] [address] [email or web address] PCP - General Internal Medicine 11/01/17 06/07/20 Corey Sandoval MD [address] [place] [address] [email or web address] PCP - General Internal Medicine 06/08/20 documented as of this encounter Additional Source Comments The information contained in this document represents components of the legal health record. It is not the complete legal health record.[facility]
== END ==
LOC: HO.HMCFM 12:19
PROVIDERS: PCP Internal Medicine; Visit Provider Family Medicine
DX: N18.32 Chronic kidney disease, stage 3b (principal); E78.5 Hyperlipidemia, unspecified; D64.9 Anemia, unspecified; M21.372 Foot drop, left foot